=== PATIENT | female | born 1945 | race Caucasian/White ===

== ENCOUNTER → 2017-08-20 | Outpatient (CLI) | payer MEDICARE, BC ==
[~2017-08-20] MED LIST: ACET500T68 PO; ARAVA20 MG PO; BACL10TA PO; BUPR100T6 PO; CA C1TAB53 PO; CEVI30CA PO; CEVI30CA5 PO; CHOL1CRY3 MC; CYCL1DRO EACHEYE; DILT120C93 PO; ESTR0.3T PO; FOLI0.4T2 PO; HYDR1TAB12 PO; HYDR200T PO; MULT1CAP15 PO; NIAC50TA3 PO; PARO10TA57 PO; PSYL0.5215 PO; RITU10VI IV; TIZA4CAP3 PO
--- NOTE | 2017-08-20 15:14 | PCVCIMAG ---
EXAM: AORTOILIAC DUPLEX INDICATION: Peripheral arterial disease. Nonhealing ulcer. FINDINGS: AORTA: Suprarenal aorta measures maximum diameter of 2.4 cm. There is not a fusiform infrarenal aortic aneurysm. The infrarenal aorta measures maximum diameter of 1.6 cm. No aortic stenosis. RIGHT COMMON ILIAC ARTERY: Maximum diameter is 0.7 cm. No significant stenosis. RIGHT EXTERNAL ILIAC ARTERY: No significant stenosis. LEFT COMMON ILIAC ARTERY: Maximum diameter is 0.9 cm. Complete occlusion. LEFT EXTERNAL ILIAC ARTERY: No significant stenosis. IMPRESSION: Complete occlusion left common iliac artery. No right iliac stenosis seen. No abdominal aortic aneurysm. LOC:[id number]
--- NOTE | 2017-08-20 15:16 | PCVCIMAG ---
EXAM: BILATERAL LOWER EXTREMITY ARTERIAL DUPLEX INDICATION: Peripheral Arterial Disease. Leg pain. FINDINGS: Right Leg: Satisfactory arterial waveforms throughout the common/profunda/superficial femoral, popliteal, anterior tibial, peroneal, and posterior tibial arteries. No flow limiting stenosis seen. Left Leg: Severely blunted arterial waveforms throughout the common femoral and profunda femoral arteries and the superficial femoral artery and popliteal arteries without additional focal stenoses. The anterior tibial, peroneal, posterior tibial arteries are patent. IMPRESSION: No flow limiting stenosis in the right lower extremity. No flow limiting stenosis in the left lower extremity. Note is made of severely blunted arterial waveforms throughout the left lower extremity consistent with the left common iliac artery occlusion seen on aortoiliac duplex today. LOC:[id number]
== END | disposition home or self-care (01) ==
LOC: PCVCIMAG 14:02
PROVIDERS: ATTEND Nuclear Medicine Nuclear Cardiology
DX: I73.9 Peripheral vascular disease, unspecified (principal); I74.5 Embolism and thrombosis of iliac artery; L97.909 Non-pressure chronic ulcer of unspecified part of unspecified lower leg with unspecified severity
CPT/HCPCS: 93925; 93978

== ENCOUNTER → 2017-08-22 | Outpatient (CLI) | payer MEDICARE, BC ==
[~2017-08-22] MED LIST changes: +ASPIRIN 325 MG TABLET ONE; +CLOPIDOGREL BISULFATE 75 MG TABLET ONE; +DIAZEPAM 10 MG TABLET. ONE; +HEPARIN SODIUM 5,000 UNIT/ML VIAL for PCVC. ONE; +IODIXANOL 270 MG/ML 100 ML VIAL. ONE; +IV NORMAL SALINE 500ML BAG 500 ML ONE; +LIDOCAINE 1% Multi-Dose 20 ML VIAL. ONE; +LIDOCAINE 1%/EPI 1:100,000 20 ML VIAL. ONE; +MIDAZOLAM HCL/PF 2 MG/2 ML VIAL. ONE; +fentaNYL PF VIAL 100 MCG/2 ML VIAL ONE; +hydrALAZINE 20 MG/ML VIAL. ONE
--- NOTE | 2017-08-22 15:57 | PCVCINTER ---
EXAM: 1. AORTOGRAM AND BILATERAL LOWER EXTREMITY RUNOFF ANGIOGRAM 2. BILATERAL RENAL ANGIOGRAPHY 3. LEFT COMMON ILIAC ARTERY STENT PLACEMENT. INDICATION: Peripheral arterial disease. Left leg claudication. Hypertension. Renal atherosclerosis. PROCEDURE: Procedure and risks of angiography intervention is appropriate including limb loss stroke and were discussed with the patient's family and consent obtained. The patient's right groin was prepped abnormal sterile fashion. IV conscious sedation was used to procedure with appropriate monitoring from 11:30 AM through 1:30 PM. Ultrasound was used to interrogate the right groin and showed the right common femoral artery to be patent. A permanent spot film was obtained. Under ultrasound guidance access into the right common femoral artery was obtained and a 5 Turkmen sheath was placed. Through this a 5 Turkmen flush catheter was placed into the abdominal aorta at the level of the renal arteries and AP aortogram was performed. Catheter was positioned at the aortic bifurcation and both oblique views of the pelvis were obtained. Catheter was positioned into the right external iliac artery and right leg runoff angiography was performed. Catheter was exchanged for a visceral catheter was placed into the right renal arteries and right renal angiograms obtained. Catheter was placed into the the left renal arteries and left renal angiograms were obtained. Catheter was advanced to the level of the left external iliac artery and left leg runoff angiography was obtained. Patient was given 4000units of heparin. A 6 Turkmen crossover sheath was placed via the right groin to the level of the left common iliac artery. Stent placement across the areas of high-grade stenosis in the left common iliac artery was carried out with a 12 x 80 Smart control stent with subsequent dilatation to 8.0 mm. Next the left groin was prepped and draped in normal sterile fashion. Access into the left common femoral artery was obtained and a 7 Turkmen sheath was placed. A wire was noted that across the newly placed left common iliac artery stent. Stent placement across the areas of high-grade stenosis in the left upper left common iliac artery was carried out with a 8 x 39 Palmaz Sara stent with subsequent dilatation to 9.0 mm. Follow-up angiogram was performed. Catheters and wires removed. Sheaths were removed and hemostasis obtained using the FISH device. No immediate complications. FINDINGS: Aortogram: There is one right and one left renal artery. Mild calcific plaque infrarenal abdominal aorta without significant stenosis. Pelvis: The right common and external iliac arteries show good patency. The right internal iliac artery is patent. The right common femoral and profunda femoral artery are patent. 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 The left external iliac artery is patent as is the internal iliac artery. The left common femoral and profunda femoral artery are patent. Right renal artery: Ectasia of the mid and distal main renal artery but no evidence of flow-limiting stenosis. Left renal artery: Mild ectasia mid and distal main renal artery without significant stenosis. Right leg: Superficial femoral artery and popliteal arteries show good patency. The anterior tibial and peroneal arteries show good patency. The left posterior tibial artery is absent. Left leg: The superficial femoral artery and popliteal artery show good patency. The anterior tibial, peroneal, posterior tibial arteries all show good patency. The dorsalis pedis shows diffuse high-grade stenosis. Left common iliac artery: Following procedure as above vessel shows good patency. IMPRESSION: Chronic occlusion left common iliac artery was successfully recanalized with good patency restored. impression follow up LOC:[place] [id number]
== END | disposition home or self-care (01) ==
LOC: PCVCINTER 09:35
PROVIDERS: ATTEND Nuclear Medicine Nuclear Cardiology
DX: I70.212 Atherosclerosis of native arteries of extremities with intermittent claudication, left leg (principal); I10 Essential (primary) hypertension; I70.1 Atherosclerosis of renal artery
CPT/HCPCS: 36252; 37221; 75716; 76937; 99152; 99153; C1725; C1751; C1769; C1876; C1887; C1894; J0360; J0690; J1644; J2250; J3010; J3490; J7040; Q9966

== ENCOUNTER 2017-10-16 16:26 | Inpatient (IN) | payer MEDICARE ==
[~2017-10-16] VITALS: Ht 165.1 cm; Wt 44.0 kg
[~2017-10-16 16:26] MED LIST changes: -ASPIRIN 325 MG TABLET ONE; -CLOPIDOGREL BISULFATE 75 MG TABLET ONE; -DIAZEPAM 10 MG TABLET. ONE; -HEPARIN SODIUM 5,000 UNIT/ML VIAL for PCVC. ONE; -IODIXANOL 270 MG/ML 100 ML VIAL. ONE; -IV NORMAL SALINE 500ML BAG 500 ML ONE; -LIDOCAINE 1% Multi-Dose 20 ML VIAL. ONE; -LIDOCAINE 1%/EPI 1:100,000 20 ML VIAL. ONE; -MIDAZOLAM HCL/PF 2 MG/2 ML VIAL. ONE; -fentaNYL PF VIAL 100 MCG/2 ML VIAL ONE; -hydrALAZINE 20 MG/ML VIAL. ONE
[2017-10-16 19:45] VITALS: BP 136/73
[2017-10-16] MEDS ORDERED: CLOP75TA (19:58)
[2017-10-16] MEDS ORDERED: METO-239 (19:58)
[2017-10-16] MEDS ORDERED: HYDR-2819 (19:58)
[2017-10-16] MEDS ORDERED: SPIR1TAB3 (19:58)
[2017-10-16] MEDS ORDERED: GABA100C6 (19:58)
[2017-10-16] MEDS ORDERED: FURO20TA3 PO (19:58)
[2017-10-16] MEDS ORDERED: BUPR100T8 (19:58)
[2017-10-16] MEDS ORDERED: PARO40TA3 (19:58)
[2017-10-16] MEDS ORDERED: DILTIAZEM (19:58)
[2017-10-16] MEDS ORDERED: LEFL20TA (19:58)
[2017-10-16] MEDS ORDERED: ONDA8TAB14 (19:58)
[2017-10-16] MEDS ORDERED: IV NORMAL SALINE 1000ML BAG 1,000 ML IV SCH (20:36)
[2017-10-16] MEDS ORDERED: PROCHLORPERAZINE 10 MG/2 ML VIAL. IV PRN (20:45)
[2017-10-16] MEDS ORDERED: CA C1TAB53 PO ×2 (20:45)
[2017-10-16] MEDS ORDERED: CALCIUM CARBONATE 500 MG TAB.CHEW PO PRN (20:45)
[2017-10-16] MEDS ORDERED: CHOL500016 PO (20:45)
[2017-10-16] MEDS ORDERED: FOLI1TAB16 PO (20:45)
[2017-10-16] MEDS ORDERED: CYCL1DRO EACHEYE (20:45)
[2017-10-16] MEDS ORDERED: HYDR200T5 PO (20:45)
[2017-10-16] MEDS ORDERED: HYDR25TA PO (20:52)
[2017-10-16] MEDS ORDERED: MULT-223 PO (20:52)
[2017-10-16] MEDS ORDERED: TIZA2CAP PO (20:52)
[2017-10-16] MEDS ORDERED: TIZA4CAP PO (20:52)
[2017-10-16] MEDS ORDERED: LATA2.5D3 OP (20:52)
[2017-10-16] MEDS ORDERED: METO25TA2 PO (20:52)
[2017-10-16] MEDS ORDERED: PSYL575P4 PO (20:52)
[2017-10-16] MEDS ORDERED: SPIR25TA3 PO (20:52)
[2017-10-16] MEDS ORDERED: TRAM50TA PO (20:54)
[2017-10-16] MEDS ORDERED: TRIA15OI TP (20:54)
[2017-10-16] MEDS ORDERED: ONDANSETRON ODT 4 MG TAB.RAPDIS. PO PRN (21:30)
[2017-10-16] MEDS ORDERED: hydrOXYzine 10 MG TABLET PO PRN (21:30)
[2017-10-16] MEDS ORDERED: traMADol 50 MG TABLET PO PRN (21:30)
[2017-10-16] MEDS: GABAPENTIN 100 MG CAPSULE. PO SCH (21:58)
[2017-10-16] MEDS: ACETAMINOPHEN 500 MG TABLET PO SCH (21:58)
[2017-10-16] MEDS: FOLIC ACID 1 MG TABLET. PO SCH (21:58)
[2017-10-16] MEDS: LATANOPROST 0.005% OPHTH SOLUTION 2.5ML BOTTLE. OU SCH (22:03)
[2017-10-16 22:28] LABS: BILIRUBIN,URINE NEGATIVE (NEG); GLUCOSE,URINE NEGATIVE (NEG); NITRITE,URINE NEGATIVE (NEG); PH,URINE 5.5; PROTEIN,URINE NEGATIVE (NEG-TRACE); UROBILINOGEN,URINE 0.2 mg/dL (0.2 mg/dL)
--- NOTE | 2017-10-16 22:33 | HP ---
ADMIT DATE: 10/16/2017 CHIEF COMPLAINT: Weakness. HISTORY OF PRESENT ILLNESS: The patient is a 71-year-old woman with past medical history of rheumatoid arthritis, CLL, hypertension, who presented to the Emergency Room at [facility] with generalized weakness and fatigue. She actually had been seen at the same Emergency Room about 2 weeks prior for same symptoms, had been found with multiple abnormalities including anemia, dehydration, hypokalemia, but at that time had refused admission. She presented today for essentially severe weakness, even being unable to get up from a chair and take care of herself in any other way. She does live alone. She denies any fevers, chills, any cough, chest pain, abdominal pain, nausea, vomiting or diarrhea. She does occasionally get nausea, does have Zofran at home for this. Her appetite has been nil for essentially 3 years. On further prompting, she is somewhat vague, but thinks it may be worse after eating, but just does not have any appetite. In the Emergency Room, she was found with an anemia with a hemoglobin of 7.1. Her creatinine was 1.4 with a BUN of 44, multiple electrolyte abnormalities and she was transferred to [facility] for better access to a specialist for consulting. PAST MEDICAL HISTORY: CLL, currently not on treatment; rheumatoid arthritis, on multiple meds; and hypertension. PAST SURGICAL HISTORY: No history of surgeries. FAMILY HISTORY: Positive for heart disease in father. She has cousins with rheumatoid arthritis. SOCIAL HISTORY: Lives by herself, never smoked. No toxic habits. ALLERGIES: SULFA AND METHOTREXATE. MEDICATIONS: MAR reconciled with home medications. REVIEW OF SYSTEMS: Positive as per HPI. Occasional nausea, severe anorexia. No abdominal pain. Rest of organ system review is essentially negative, say for chronic arthritis. PHYSICAL EXAMINATION: VITAL SIGNS: From today show a blood pressure of 136/73, heart rate at 111, respiratory rate at 16. She is afebrile. GENERAL: This is a severely cachectic 71-year-old woman, awake, alert, in no acute distress. LUNGS: Clear. HEART: Has regular rate and rhythm. ABDOMEN: Cachectic, positive bowel sounds, some tenderness to palpation in the epigastric area. EXTREMITIES: Show no edema. SKIN: Warm, soft and dry. Multiple superficial bruises noted. Significant arthritic changes in her wrist and fingers, especially. LABORATORY DATA: CBC with a WBC of 15.4, hemoglobin 7.1, MCV of 93, platelets at 689. BUN and creatinine at 44 and 1.4, sodium 129, potassium 4.5, chloride at 95, CO2 at 17. LFTs essentially within normal limits. Albumin at 2.9. UA without any signs of infection. IMAGING: Chest x-ray: Possible right lung nodule, no acute changes. ASSESSMENT AND PLAN: The patient is a 71-year-old woman with chronic failure to thrive, now to a point of weakness where she is unable to motor under her own strength. Her BMI currently is under 15. She states she has no nausea; however, severe anorexia with occasional nausea episodes for which she has ondansetron. We will have to evaluate if this is secondary to medications, including some of her rheumatoid arthritis medications versus potential mesenteric plaquing. She had a recent arteriogram of her lower extremities showing occlusion. Cannot rule out that similar pathology is at work in her abdominal arteries. We will also obtain a GI consult for further input regarding other potential etiologies. The patient currently is significantly azotemic and has elevated creatinine. We will administer IV fluids and hope that this is related to dehydration due to poor p.o. intake. We will monitor all her labs including her electrolytes. Renal consult will be obtained. Bit concerned that her CO2 was actually fairly low. Consider switching to bicarbonate if this does not improve with next plan. The patient also is significantly anemic. I am not sure if this is related to her previous treatments with CLL or recurrent disease, although her white count actually is normal with normal lymphocyte count. Suspect she may be reaching transfusion levels with IV rehydration in the morning. For prophylaxis, she will be started on a PPI as well as on heparin subQ. TOMASZ DAVIS MD DR: MEDHAT/luma JOB#: [id number] / [id number] DENNIS
[2017-10-16 22:38] LABS: BACTERIA,URINE MOD /HPF (0-FEW); RBC,URINE 0 /HPF (0-2); SQUAMOUS EPITHELIAL CELL,UR MOD /LPF
[2017-10-16 23:16] VITALS: BP 135/75
[2017-10-17] VITALS (11 sets, daily range): BP systolic 139–168; BP diastolic 61–91
[2017-10-17] MEDS: HYDROcodone/APAP 5/325MG 1 TAB TABLET PO PRN ×2 (00:05→21:31)
[2017-10-17 04:33] LABS: BASO # 0.1 x10^3/uL (0.0-0.2); BASO % 1 % (0-3); EOS % 1 % (0-3); LYMPH # 1.3 x10^3/uL (1.0-4.8); LYMPH % 12 % (24-48); MEAN CORPUSCULAR HEMOGLOBIN 30 pg (25-35); MEAN CORPUSCULAR HGB CONC 32 g/dL (31-37); MEAN CORPUSCULAR VOLUME 94 fL (79-100); MONO % 10 % (0-9); NEUT % 77 % (31-73); PLATELET COUNT 593 x10^3/uL (140-400); RED BLOOD COUNT 2.05 x10^6/uL (3.50-5.40); RED CELL DISTRIBUTION WIDTH 14.3 % (11.5-14.5); WHITE BLOOD COUNT 10.8 x10^3/uL (4.0-11.0)
[2017-10-17 04:44] LABS: CALCIUM 8.2 mg/dL (8.5-10.1); CREATININE 1.1 mg/dL (0.6-1.0); GFR 48.7; MAGNESIUM 1.7 mg/dL (1.8-2.4); PHOSPHORUS 3.6 mg/dL (2.6-4.7); POTASSIUM 4.2 mmol/L (3.5-5.1)
[2017-10-17 04:46] LABS: HEMATOCRIT 19.2 % (36.0-47.0); HEMOGLOBIN 6.2 g/dL (12.0-15.5)
[2017-10-17] MEDS: PSYLLIUM HUSK (SUGAR FREE) 1 PKT PACKET PO SCH (08:06)
[2017-10-17] MEDS: buPROPion SR 100 MG TABLET.SA. PO SCH (08:06)
[2017-10-17] MEDS: CLOPIDOGREL BISULFATE 75 MG TABLET PO SCH (08:06)
[2017-10-17] MEDS: cycloSPORINE 0.05% OPTH 1 DROP DROPERETTE OU SCH ×2 (08:06→20:23)
[2017-10-17] MEDS: FOLIC ACID 1 MG TABLET. PO SCH ×3 (08:08→20:22)
[2017-10-17] MEDS: CALCIUM CARB/VIT D3 500/200 TABLET. PO SCH ×2 (08:08→16:06)
[2017-10-17] MEDS: ACETAMINOPHEN 500 MG TABLET PO SCH ×2 (08:08→20:23)
[2017-10-17] MEDS: MULTIVITAMIN with MINERAL TABLET. PO SCH (08:08)
[2017-10-17] MEDS: METOPROLOL SUCC 24HR ER 25 MG TAB.ER.24H. PO SCH (08:09)
[2017-10-17] MEDS: PARoxetine 20 MG TABLET PO SCH (08:09)
[2017-10-17] MEDS: HEPARIN PF for SUB-Q USE 5,000 UNIT/0.5 ML VIAL. SQ SCH ×2 (08:15→20:27)
[2017-10-17] MEDS ORDERED: METOPROLOL SUCC 24HR ER 25 MG TAB.ER.24H. PO SCH (09:00)
--- NOTE | 2017-10-17 11:34 | PDOC2 ---
CONSULT Date of Consult Date of Consult DATE: 10/17/17 TIME: 11:27 Reason for Consult Reason for Consult: CHEIKH Referring Physician Referring Physician: SUSAN Identification/Chief Complaint Chief Complaint WEAKNESS Problems: Source Source: Chart review, Patient History of Present Illness Reason for Visit: THIS IS A 71 YR OLD WITH SEVERAL WEEK HX OF WEAKNESS AND ANOREXIA. NOT EATING MUCH. NO APPETITE. MULTIPLE MED PROBLEMS INCLUDING CLL AND RA. LABS IN [place] SHOWED SEVERE ANEMIA AND MILD CHEIKH. NO CKD HX. PER PT AND DAUGHTER SHE HAS HAD MILD KIDNEY PROBLEMS IN THE PAST WHEN SHE BECAME DEHYDRATED. HOME MEDS INCLUDED LASIX AND SHE HAS BEEN COMPLIANT WITH THIS. NO NEPHROTOXINS. NO HX Past Medical History Cardiovascular: HTN GI: Constipation Heme/Onc: Anemia NOS, Cancer, Other (CLL) Musculoskeletal: Other (RA) Social History No ALCOHOL: none Lives: with Family Current Medications Current Medications Current Medications Sodium Chloride 1,000 ml @ 100 mls/hr Q10H IV Last administered on 10/16/17 22:03; Start 10/16/17 at 20:36; Stop 10/17/17 at 06:35; Status DC Prochlorperazine Edisylate (Compazine) 10 mg PRN Q6HRS PRN IV NAUSEA/VOMITING; Start 10/16/17 at 20:45 Calcium Carbonate/ Glycine (Tums) 500 mg PRN Q3HRS PRN PO UPSET STOMACH; Start 10/16/17 at 20:45 Heparin Sodium (Porcine) (Heparin Sq) 5,000 unit Q12HR SQ Last administered on 10/17/17 08:15; Start 10/17/17 at 09:00 Acetaminophen (Tylenol) 500 mg BID PO Last administered on 10/17/17 08:08; Start 10/16/17 at 22:00 Bupropion HCl (Wellbutrin Sr) 100 mg DAILY PO Last administered on 10/17/17 08:06; Start 10/17/17 at 09:00 Clopidogrel Bisulfate (Plavix) 75 mg DAILY PO Last administered on 10/17/17 08:06; Start 10/17/17 at 09:00 Cyclosporine (Restasis) 1 drop BID OU Last administered on 10/17/17 08:06; Start 10/17/17 at 09:00 Folic Acid (Folic Acid) 1 mg TID PO Last administered on 10/17/17 08:08; Start 10/16/17 at 22:00 Gabapentin (Neurontin) 200 mg QHS PO Last administered on 10/16/17 21:58; Start 10/16/17 at 22:00 Acetaminophen/ Hydrocodone Bitart (Lortab 5/325) 1 tab Q6HRS PRN PO pain Last administered on 10/17/17 00:05; Start 10/16/17 at 21:30 Latanoprost (Xalatan) 1 drop HS OU ; Start 10/16/17 at 22:00 Metoprolol Succinate (Toprol Xl) 25 mg DAILY PO Last administered on 08:09; Start 10/17/17 at 09:00 Metoprolol Succinate (Toprol Xl) 25 mg DAILY PO ; Start 10/17/17 at 09:00; Status UNV Tramadol HCl (Ultram) 50 mg Q4H PRN PO MILD PAIN; Start 10/16/17 at 21:30 Calcium/Vitamin D (Oscal D 500mg/ 200uts) 1 tab BIDWMEALS PO Last administered on 10/17/17 08:08; Start 10/17/17 at 08:00 Multivitamins (Thera M Plus) 1 tab DAILY PO Last administered on 10/17/17 08: 08; Start 10/17/17 at 09:00 Hydroxyzine HCl (Atarax) 10 mg PRN Q6HRS PRN PO ITCHING; Start 10/16/17 at 21: 30 Ondansetron HCl (Zofran Odt) 4 mg PRN Q6HRS PRN PO NAUSEA/VOMITING; Start at 21:30 Paroxetine HCl (Paxil) 20 mg DAILY PO Last administered on 10/17/17 08:09; Start 10/17/17 at 09:00 Psyllium Hydrophilic Mucilloid (Metamucil Fiber Packet) 1 pkt DAILY PO Last administered on 10/17/17 08:06; Start 10/17/17 at 09:00 Diltiazem HCl (Cardizem 24hr Cd) 240 mg DAILY PO Last administered on 08:08; Start 10/17/17 at 09:00 Active Scripts Active Reported Triamcinolone Acetonide 0.1% Oint (Triamcinolone Acetonide) 15 Gm Oint...g. 1 Tali TP BID MIX WITH EUCERIN DIRECTED BY PHYSICIAN Tramadol Hcl 50 Mg Tablet 50 Mg PO Q4H PRN Tizanidine Hcl 4 Mg Capsule 8 Mg PO HS Tizanidine Hcl 2 Mg Capsule 2 Mg PO BID Spironolactone 25 Mg Tablet 25 Mg PO DAILY Metamucil Powder (Psyllium Seed (with Sugar)) 575 Gm Powder 575 Gm PO One Daily (Multivitamin) 1 Each Tablet 1 Each PO DAILY Toprol Xl (Metoprolol Succinate) 25 Mg Tab.er.24h 25 Mg PO DAILY Latanoprost 2.5 Ml Drops 1 Drop OP HS Hydroxyzine Hcl 25 Mg Tablet 25 Mg PO Hydroxychloroquine Sulfate 200 Mg Tablet 200 Mg PO BID Folic Acid 1 Mg Tablet 1 Mg PO TID Restasis (Cyclosporine) 1 Each Droperette 1 Drop EACHEYE BID Vitamin D3 (Cholecalciferol (Vitamin D3)) 5,000 Unit Tablet 5,000 Unit PO DAILY Cvs Calcium Citrate + D Tab (Ca Citrate/Mgox/Vit D3/B6/Min) 1 Each Tablet 1 Each PO BID Cvs Calcium Citrate + D Tab (Ca Citrate/Mgox/Vit D3/B6/Min) 1 Each Tablet 1 Each PO Lorcet 5-325 mg Tablet (Hydrocodone/Acetaminophen) 1 Each Tablet Leflunomide 20 Mg Tablet Metoprolol Succinate ( Xl ) (Metoprolol Succinate) 25 Mg Tab.er.24h Paroxetine Hcl 40 Mg Tablet Ondansetron Hcl 8 Mg Tablet Gabapentin 100 Mg Capsule Bupropion Hcl Sr (Bupropion Hcl) 100 Mg Tablet.er Clopidogrel (Clopidogrel Bisulfate) 75 Mg Tablet Furosemide 20 Mg Tablet 10 Mg PO DAILY Tiazac (Diltiazem Hcl) 120 Mg Capsule.er 240 Mg PO Evoxac (Cevimeline Hcl) 30 Mg Capsule 30 Mg PO Acetaminophen 500 Mg Tablet 1 Tab PO BID Allergies Allergies: Coded Allergies: Sulfa (Sulfonamide Antibiotics) (Verified Allergy, Intermediate, 08/29/14) methotrexate (Verified Allergy, Intermediate, 10/16/17) ROS General: YES: Fatigue, Malaise, Appetite PSYCHOLOGICAL ROS: YES: Anxiety, Depression Eyes: Yes Decreased vision HEENT: YES: Heacaches Respiratory: YES: Cough Gastrointestinal: Yes Nausea, Yes Constipation, Yes Other (NO APPETITE) Genitourinary: YES Other (NOCTURIA) Musculoskeletal: Yes Muscular Weakness Neurological: Yes Weakness Skin: Yes Dry Skin Physical Exam General: Alert, Oriented X3, Cooperative, No acute distress HEENT: Atraumatic, PERRLA, EOMI, Other (DRY MUCOSA) Heart: Regular rate Abdomen: Normal bowel sounds, Soft, No tenderness Extremities: No clubbing, Other (ATROPHY) Skin: No rashes Neuro: Normal speech, Cranial nerves 3-12 NL Psych/Mental Status: Other (FLAT AFFECT) MUSCULOSKELETAL: Other (DIFFUSE MUSCULAR ATROPHY) Vitals VITALS Vital Signs Date Time Temp Pulse Resp B/P (MAP) Pulse Ox O2 Delivery O2 Flow Rate FiO2 10/17/17 10:47 98.2 102 17 157/91 (113) 96 Room Air 98.2 Labs Labs Laboratory Tests Test 10/16/17 21:45 10/17/17 03:30 Urine Collection Type Unknown Urine Color Yellow Urine Clarity Clear Urine pH 5.5 Urine Specific [place] 1.010 Urine Protein Negative mg/dL (NEG-TRACE) Urine Glucose (UA) Negative mg/dL (NEG) Urine Ketones (Stick) Trace mg/dL (NEG) Urine Blood Negative (NEG) Urine Nitrite Negative (NEG) Urine Bilirubin Negative (NEG) Urine Urobilinogen Dipstick 0.2 mg/dL (0.2 mg/dL) Urine Leukocyte Esterase Negative (NEG) Urine RBC 0 /HPF (0-2) Urine WBC 1-4 /HPF (0-4) Urine Squamous Epithelial Cells Mod /LPF Urine Bacteria Mod /HPF (0-FEW) Urine Mucus Mod /LPF White Blood Count 10.8 x10^3/uL (4.0-11.0) Red Blood Count 2.05 x10^6/uL (3.50-5.40) Hemoglobin 6.2 g/dL (12.0-15.5) Hematocrit 19.2 % (36.0-47.0) Mean Corpuscular Volume 94 fL (79-100) Mean Corpuscular Hemoglobin 30 pg (25-35) Mean Corpuscular Hemoglobin Concent 32 g/dL (31-37) Red Cell Distribution Width 14.3 % (11.5-14.5) Platelet Count 593 x10^3/uL (140-400) Neutrophils (%) (Auto) 77 % (31-73) Lymphocytes (%) (Auto) 12 % (24-48) Monocytes (%) (Auto) 10 % (0-9) Eosinophils (%) (Auto) 1 % (0-3) Basophils (%) (Auto) 1 % (0-3) Neutrophils # (Auto) 8.3 x10^3uL (1.8-7.7) Lymphocytes # (Auto) 1.3 x10^3/uL (1.0-4.8) Monocytes # (Auto) 1.0 x10^3/uL (0.0-1.1) Eosinophils # (Auto) 0.1 x10^3/uL (0.0-0.7) Basophils # (Auto) 0.1 x10^3/uL (0.0-0.2) Sodium Level 133 mmol/L (136-145) Potassium Level 4.2 mmol/L (3.5-5.1) Chloride Level 100 mmol/L (98-107) Carbon Dioxide Level 17 mmol/L (21-32) Anion Gap 16 (6-14) Blood Urea Nitrogen 34 mg/dL (7-20) Creatinine 1.1 mg/dL (0.6-1.0) Estimated GFR (Cockcroft-Gault) 48.7 Glucose Level 60 mg/dL (70-99) Calcium Level 8.2 mg/dL (8.5-10.1) Phosphorus Level 3.6 mg/dL (2.6-4.7) Magnesium Level 1.7 mg/dL (1.8-2.4) Thyroid Stimulating Hormone (TSH) 3.776 uIU/mL (0.358-3.74) Laboratory Tests Test 10/16/17 21:45 10/17/17 03:30 Urine Collection Type Unknown Urine Color Yellow Urine Clarity Clear Urine pH 5.5 Urine Specific [place] 1.010 Urine Protein Negative mg/dL (NEG-TRACE) Urine Glucose (UA) Negative mg/dL (NEG) Urine Ketones (Stick) Trace mg/dL (NEG) Urine Blood Negative (NEG) Urine Nitrite Negative (NEG) Urine Bilirubin Negative (NEG) Urine Urobilinogen Dipstick 0.2 mg/dL (0.2 mg/dL) Urine Leukocyte Esterase Negative (NEG) Urine RBC 0 /HPF (0-2) Urine WBC 1-4 /HPF (0-4) Urine Squamous Epithelial Cells Mod /LPF Urine Bacteria Mod /HPF (0-FEW) Urine Mucus Mod /LPF White Blood Count 10.8 x10^3/uL (4.0-11.0) Red Blood Count 2.05 x10^6/uL (3.50-5.40) Hemoglobin 6.2 g/dL (12.0-15.5) Hematocrit 19.2 % (36.0-47.0) Mean Corpuscular Volume 94 fL (79-100) Mean Corpuscular Hemoglobin 30 pg (25-35) Mean Corpuscular Hemoglobin Concent 32 g/dL (31-37) Red Cell Distribution Width 14.3 % (11.5-14.5) Platelet Count 593 x10^3/uL (140-400) Neutrophils (%) (Auto) 77 % (31-73) Lymphocytes (%) (Auto) 12 % (24-48) Monocytes (%) (Auto) 10 % (0-9) Eosinophils (%) (Auto) 1 % (0-3) Basophils (%) (Auto) 1 % (0-3) Neutrophils # (Auto) 8.3 x10^3uL (1.8-7.7) Lymphocytes # (Auto) 1.3 x10^3/uL (1.0-4.8) Monocytes # (Auto) 1.0 x10^3/uL (0.0-1.1) Eosinophils # (Auto) 0.1 x10^3/uL (0.0-0.7) Basophils # (Auto) 0.1 x10^3/uL (0.0-0.2) Sodium Level 133 mmol/L (136-145) Potassium Level 4.2 mmol/L (3.5-5.1) Chloride Level 100 mmol/L (98-107) Carbon Dioxide Level 17 mmol/L (21-32) Anion Gap 16 (6-14) Blood Urea Nitrogen 34 mg/dL (7-20) Creatinine 1.1 mg/dL (0.6-1.0) Estimated GFR (Cockcroft-Gault) 48.7 Glucose Level 60 mg/dL (70-99) Calcium Level 8.2 mg/dL (8.5-10.1) Phosphorus Level 3.6 mg/dL (2.6-4.7) Magnesium Level 1.7 mg/dL (1.8-2.4) Thyroid Stimulating Hormone (TSH) 3.776 uIU/mL (0.358-3.74) Assessment/Plan Assessment/Plan IMP MILD CHEIKH-NO CKD ANEMIA DEHYDRATION CACHEXIA MALNUTRITION CLL RA LOW MAG PLAN REPLACE MAG PPN PRBC WILL FOLLOW UPDATED DAUGHTER CONSIDER GI AND ONC FRANCHESCA CORDOVA MD Oct 17, 2017 11:34
[2017-10-17] MEDS ORDERED: MAGNESIUM SULFATE 2GM 50 ML IV ONE (11:45)
[2017-10-17] MEDS: AMINO AC 3%/ELECTROLYTE/GLYCER 1,000 ML IV SCH (12:05)
--- NOTE | 2017-10-17 13:04 | PDOC ---
PROGRESS NOTES Chief Complaint Chief Complaint Weakness, FTT ASSESSMENT AND PLAN: 1. FTT: eating a little more here. no vomiting. 2. Anorexia: unclear etiology. ?med related vs mesenteric ischemia vs GI malignancy (unlikely given time course). GI consult pending. trial of marinol 3. CHEIKH: improving with IVF 4. Hyponatremia: improving 5. Hypomagnesemia: replete IV 6. Anemia: anemia labs pending. transfuse PRBC x1 today 7. Prophylaxis: PPI, lovenox History of Present Illness History of Present Illness feels a little better. no focal c/o Vitals Vitals Vital Signs Date Time Temp Pulse Resp B/P (MAP) Pulse Ox O2 Delivery O2 Flow Rate FiO2 10/17/17 12:16 98.6 94 16 155/77 (103) 98.6 10/17/17 10:47 96 Room Air Physical Exam Physical Exam cachectic General: Alert, Oriented X3, Cooperative, No acute distress Heart: Regular rate Lungs: Clear Abdomen: Normal bowel sounds, Soft, No tenderness Extremities: No clubbing, Other (mucle wasting) Skin: No rashes Labs LABS Laboratory Tests Test 10/16/17 21:45 10/17/17 03:30 Urine Collection Type Unknown Urine Color Yellow Urine Clarity Clear Urine pH 5.5 Urine Specific [place] 1.010 Urine Protein Negative mg/dL (NEG-TRACE) Urine Glucose (UA) Negative mg/dL (NEG) Urine Ketones (Stick) Trace mg/dL (NEG) Urine Blood Negative (NEG) Urine Nitrite Negative (NEG) Urine Bilirubin Negative (NEG) Urine Urobilinogen Dipstick 0.2 mg/dL (0.2 mg/dL) Urine Leukocyte Esterase Negative (NEG) Urine RBC 0 /HPF (0-2) Urine WBC 1-4 /HPF (0-4) Urine Squamous Epithelial Cells Mod /LPF Urine Bacteria Mod /HPF (0-FEW) Urine Mucus Mod /LPF White Blood Count 10.8 x10^3/uL (4.0-11.0) Red Blood Count 2.05 x10^6/uL (3.50-5.40) Hemoglobin 6.2 g/dL (12.0-15.5) Hematocrit 19.2 % (36.0-47.0) Mean Corpuscular Volume 94 fL (79-100) Mean Corpuscular Hemoglobin 30 pg (25-35) Mean Corpuscular Hemoglobin Concent 32 g/dL (31-37) Red Cell Distribution Width 14.3 % (11.5-14.5) Platelet Count 593 x10^3/uL (140-400) Neutrophils (%) (Auto) 77 % (31-73) Lymphocytes (%) (Auto) 12 % (24-48) Monocytes (%) (Auto) 10 % (0-9) Eosinophils (%) (Auto) 1 % (0-3) Basophils (%) (Auto) 1 % (0-3) Neutrophils # (Auto) 8.3 x10^3uL (1.8-7.7) Lymphocytes # (Auto) 1.3 x10^3/uL (1.0-4.8) Monocytes # (Auto) 1.0 x10^3/uL (0.0-1.1) Eosinophils # (Auto) 0.1 x10^3/uL (0.0-0.7) Basophils # (Auto) 0.1 x10^3/uL (0.0-0.2) Sodium Level 133 mmol/L (136-145) Potassium Level 4.2 mmol/L (3.5-5.1) Chloride Level 100 mmol/L (98-107) Carbon Dioxide Level 17 mmol/L (21-32) Anion Gap 16 (6-14) Blood Urea Nitrogen 34 mg/dL (7-20) Creatinine 1.1 mg/dL (0.6-1.0) Estimated GFR (Cockcroft-Gault) 48.7 Glucose Level 60 mg/dL (70-99) Calcium Level 8.2 mg/dL (8.5-10.1) Phosphorus Level 3.6 mg/dL (2.6-4.7) Magnesium Level 1.7 mg/dL (1.8-2.4) Thyroid Stimulating Hormone (TSH) 3.776 uIU/mL (0.358-3.74) Nutrition Consultation Dietary Evaluation: Recommendations by RD: Increase Calorie Intake, Protein supplementation Comments: boost plus, boost pudding, magic cup w/ meals Expected Outcomes/Goals: to meet > 75% est nutr needs Malnutrition Findings: Body Fat Depletion (Non Severe: Mod to Severe Weight Status: Underweight TOMASZ DAVIS MD Oct 17, 2017 13:03
[2017-10-17 13:27] LABS: VITAMIN-B12 1635 pg/mL (247-911)
[2017-10-17 13:58] LABS: FOLATE > 24.00 ng/ml (3.2-20.0)
--- NOTE | 2017-10-17 15:12 | PDOC2 ---
GI CONSULT Reason For Consult: Anorexia HPI: HPI: 71 y/o female we are asked to see re: anorexia. States poor appetite over past 3 years, worse past 6 months or so. Denies abdominal pain. No HB, dysphagia, PUD, GB or liver history. Had EGD at w/in past 2 years "normal". No pc bloating or early satiety. Occasional nausea/rare emesis. H/o abnormal pancreas on imaging going back some years; abnormal CT at [facility] in January this year, though radiologist comments on study (MRCP?) from 2010 showing similar findings of pancreatic ductal dilatation with perhaps cystic structure in tail. She does not recall having been told cause of this. Did have attack of pancreatitis in the remote past and at one time was heavy drinker, though dry past 14 years. For most of her life was constipated; has loosened past few years, though occasional constipation. No ongoing diarrhea or overt bleeding. Has had >one colonoscopy, the last this past May; no findings recalled. Now with normocytic anemia; from CBC's at [facility] during ER visits, seemingly arising just before January this year. B12 and folate normal here; iron studies pending. Now in general has lack of energy. Significant weight loss. Continues to smoke. Takes one ASA daily, full-strength, but no other NSAIDs. Also noted on CT in January were diverticulosis and probable liver cyst. PMH: PMH: RA, HTN, CLL(historically resolved after got Rituxan for her RA). No prior surgery. Social History: Smoke: <1 pack per day ALCOHOL: none Drugs: None ROS: GEN: Denies fevers, chills, sweats HEENT: Denies blurred vision, sore throat CV: Denies chest pain RESP: Denies shortness of air, cough GI: Per HPI : Denies hematuria, dysuria ENDO: weight loss NEURO: Denies confusion, dizziness MSK: Denies weakness, chronic arthritic complaints. SKIN: Denies jaundice, pruritus Vitals: Vitals: Vital Signs Date Time Temp Pulse Resp B/P (MAP) Pulse Ox O2 Delivery O2 Flow Rate FiO2 10/17/17 14:37 98.5 93 17 150/72 (98) 96 Room Air 98.5 Labs: Labs: Laboratory Tests Test 10/16/17 21:45 10/17/17 03:30 10/17/17 12:15 Urine Collection Type Unknown Urine Color Yellow Urine Clarity Clear Urine pH 5.5 Urine Specific [place] 1.010 Urine Protein Negative mg/dL (NEG-TRACE) Urine Glucose (UA) Negative mg/dL (NEG) Urine Ketones (Stick) Trace mg/dL (NEG) Urine Blood Negative (NEG) Urine Nitrite Negative (NEG) Urine Bilirubin Negative (NEG) Urine Urobilinogen Dipstick 0.2 mg/dL (0.2 mg/dL) Urine Leukocyte Esterase Negative (NEG) Urine RBC 0 /HPF (0-2) Urine WBC 1-4 /HPF (0-4) Urine Squamous Epithelial Cells Mod /LPF Urine Bacteria Mod /HPF (0-FEW) Urine Mucus Mod /LPF White Blood Count 10.8 x10^3/uL (4.0-11.0) Red Blood Count 2.05 x10^6/uL (3.50-5.40) Hemoglobin 6.2 g/dL (12.0-15.5) Hematocrit 19.2 % (36.0-47.0) Mean Corpuscular Volume 94 fL (79-100) Mean Corpuscular Hemoglobin 30 pg (25-35) Mean Corpuscular Hemoglobin Concent 32 g/dL (31-37) Red Cell Distribution Width 14.3 % (11.5-14.5) Platelet Count 593 x10^3/uL (140-400) Neutrophils (%) (Auto) 77 % (31-73) Lymphocytes (%) (Auto) 12 % (24-48) Monocytes (%) (Auto) 10 % (0-9) Eosinophils (%) (Auto) 1 % (0-3) Basophils (%) (Auto) 1 % (0-3) Neutrophils # (Auto) 8.3 x10^3uL (1.8-7.7) Lymphocytes # (Auto) 1.3 x10^3/uL (1.0-4.8) Monocytes # (Auto) 1.0 x10^3/uL (0.0-1.1) Eosinophils # (Auto) 0.1 x10^3/uL (0.0-0.7) Basophils # (Auto) 0.1 x10^3/uL (0.0-0.2) Sodium Level 133 mmol/L (136-145) Potassium Level 4.2 mmol/L (3.5-5.1) Chloride Level 100 mmol/L (98-107) Carbon Dioxide Level 17 mmol/L (21-32) Anion Gap 16 (6-14) Blood Urea Nitrogen 34 mg/dL (7-20) Creatinine 1.1 mg/dL (0.6-1.0) Estimated GFR (Cockcroft-Gault) 48.7 Glucose Level 60 mg/dL (70-99) Calcium Level 8.2 mg/dL (8.5-10.1) Phosphorus Level 3.6 mg/dL (2.6-4.7) Magnesium Level 1.7 mg/dL (1.8-2.4) Thyroid Stimulating Hormone (TSH) 3.776 uIU/mL (0.358-3.74) Vitamin B12 Level 1635 pg/mL (247-911) Serum Folate > 24.00 ng/ml (3.2-20.0) Allergies: Coded Allergies: Sulfa (Sulfonamide Antibiotics) (Verified Allergy, Intermediate, 08/29/14) methotrexate (Verified Allergy, Intermediate, 10/16/17) Medications: Current Medications Medications (Trade) Dose Ordered Sig/Kayla Route PRN Reason Start Time Stop Time Status Last Admin Dose Admin Sodium Chloride 1,000 ml @ 100 mls/hr Q10H IV 10/16/17 20:36 10/17/17 06:35 DC 10/16/17 22:03 Heparin Sodium (Porcine) (Heparin Sq) 5,000 unit Q12HR SQ 10/17/17 09:00 10/17/17 08:15 Acetaminophen (Tylenol) 500 mg BID PO 10/16/17 22:00 10/17/17 08:08 Bupropion HCl (Wellbutrin Sr) 100 mg DAILY PO 10/17/17 09:00 10/17/17 08:06 Clopidogrel Bisulfate (Plavix) 75 mg DAILY PO 10/17/17 09:00 10/17/17 08:06 Cyclosporine (Restasis) 1 drop BID OU 10/17/17 09:00 10/17/17 08:06 Folic Acid (Folic Acid) 1 mg TID PO 10/16/17 22:00 10/17/17 12:13 Gabapentin (Neurontin) 200 mg QHS PO 10/16/17 22:00 10/16/17 21:58 Acetaminophen/ Hydrocodone Bitart (Lortab 5/325) 1 tab Q6HRS PRN PO pain 10/16/17 21:30 10/17/17 00:05 Metoprolol Succinate (Toprol Xl) 25 mg DAILY PO 10/17/17 09:00 10/17/17 08:09 Calcium/Vitamin D (Oscal D 500mg/ 200uts) 1 tab BIDWMEALS PO 10/17/17 08:00 10/17/17 08:08 Multivitamins (Thera M Plus) 1 tab DAILY PO 10/17/17 09:00 10/17/17 08:08 Paroxetine HCl (Paxil) 20 mg DAILY PO 10/17/17 09:00 10/17/17 08:09 Psyllium Hydrophilic Mucilloid (Metamucil Fiber Packet) 1 pkt DAILY PO 10/17/17 09:00 10/17/17 08:06 Diltiazem HCl (Cardizem 24hr Cd) 240 mg DAILY PO 10/17/17 09:00 10/17/17 08:08 Magnesium Sulfate/ Dextrose 50 ml @ 25 mls/hr 1X ONCE IV 10/17/17 11:45 10/17/17 13:44 DC 10/17/17 12:05 Amino Acids/ Glycerin/ Electrolytes 1,000 ml @ 80 mls/hr [id number] IV 10/17/17 11:45 10/17/17 12:05 Imaging: Imaging: CT from [facility] also mentions common duct dilation (stable), but normal enzymes. PE: GEN: NAD, nearly cachectic HEENT: Atraumatic, PERRLA LUNGS: CTAB HEART: RRR, no murmurs ABD: NABS, S/ND/NT, no masses EXTREMITY: No edema, synovial hypertrophy and ulnar drift in hands. SKIN: No rashes, no jaundice NEURO/PSYCH: A & O 3 A/P: A/P: IMP: Anorexia--may be multifactorial, though atypical reflux would be definite consideration. Older patients may present this way. Probable chronic pancreatitis. Seems historically imaging has been stable for many years, therefore, malignancy not likely. May have exocrine insufficiency. Anemia. Still characterizing, but arising since earlier this year and with fairly recent negative EGD and colonoscopy. Generalized weakness, hyponatremia, near hyperkalemia, lowish glucose-- Lynn's? Has one autoimmune disease, perhaps another. Occult malignancy would be consideration, perhaps pulmonary (some abnormalities noted on CT in January w/o definite mass, etc) in patient who has long h/o smoking. Diverticulosis, seems asymptomatic. REC: Agree with trial of PPI. Await iron studies. Will check cortisols. Would consider heme/onc opinion. Stool fat stain, though may not be helpful as not eating much. Consider trial of pancreatic enzymes if not improving. Old records from . --other pending. Thank you for allowing me to assist in the care of this patient. Please call if questions. OTF ARGUETA MD Oct 17, 2017 15:12
[2017-10-17] MEDS: PANTOPRAZOLE 40 MG TABLET.DR. PO SCH (16:06)
[2017-10-17] MEDS: DRONABINOL 2.5 MG CAPSULE. PO SCH (16:06)
[2017-10-17 19:31] LABS: % SAT IRON 63 % (15-34); IRON,SERUM 206 ug/dL (50-170)
[2017-10-17] MEDS: LATANOPROST 0.005% OPHTH SOLUTION 2.5ML BOTTLE. OU SCH (20:22)
[2017-10-17] MEDS: GABAPENTIN 100 MG CAPSULE. PO SCH (20:22)
[2017-10-18] MEDS: AMINO AC 3%/ELECTROLYTE/GLYCER 1,000 ML IV SCH ×3 (00:15→23:49)
[2017-10-18 03:02] VITALS: BP 149/72
[2017-10-18 07:17] VITALS: BP 149/83
[2017-10-18] MEDS: FOLIC ACID 1 MG TABLET. PO SCH ×3 (08:21→21:07)
[2017-10-18] MEDS: MULTIVITAMIN with MINERAL TABLET. PO SCH (08:21)
[2017-10-18] MEDS: PANTOPRAZOLE 40 MG TABLET.DR. PO SCH ×2 (08:21→17:05)
[2017-10-18] MEDS: PSYLLIUM HUSK (SUGAR FREE) 1 PKT PACKET PO SCH (08:21)
[2017-10-18] MEDS: buPROPion SR 100 MG TABLET.SA. PO SCH (08:21)
[2017-10-18] MEDS: ACETAMINOPHEN 500 MG TABLET PO SCH ×2 (08:21→21:24)
[2017-10-18] MEDS: PARoxetine 20 MG TABLET PO SCH (08:21)
[2017-10-18] MEDS: CLOPIDOGREL BISULFATE 75 MG TABLET PO SCH (08:21)
[2017-10-18] MEDS: CALCIUM CARB/VIT D3 500/200 TABLET. PO SCH ×2 (08:21→17:05)
[2017-10-18] MEDS: cycloSPORINE 0.05% OPTH 1 DROP DROPERETTE OU SCH ×2 (08:21→21:06)
--- NOTE | 2017-10-18 08:21 | PDOC2 ---
CONSULT Date of Consult Date of Consult DATE: 10/18/17 TIME: 08:13 Reason for Consult Reason for Consult: weight loss, anemia, failure to thrive Identification/Chief Complaint Chief Complaint failure to thrive Problems: History of Present Illness Reason for Visit: 72 y.o. Female with diagnosis of CLL, COSME stage 0, del 13q, in 2002, followed regularly by Dr Powers at . In July 2010 she was also found to have a pancreatic tail lesion measuring 2.6 cm x 0.9. Endoscopic US biopsy showed "atypical cells" and she developed pancreatitis post-procedure. Thought was this was probably an IPMN. In November 2011 had a f/u MRI and the lesion had not changed in size. Last MRI abdomen at Nov 2016 showed same multiloculated cystic structure in the inferior tail of the pancreas communicating with the main pancreatic duct. The lesion measured 1.8 cm in the coronal plane, no significant change in size or configuration of this lesion when compared with examinations dating back to 11/19/2010. No recent CA 19-9. She was on observation for her CLL from 2002 until Jul 2012 when she started Rituxan for her seronegative rheumatoid arthritis (Rituxan is also helpful for CLL). She received two doses of rituximab on July 14, 2012 and 07/28/12, then received the drug every 6 months through 2016. Her lymphocytosis improved with this therapy. Her rheumatoid arthritis has been poorly controlled lately - on leflunomide and hydroxychloroquine. She has also been told she has Sjogren's (on cevimeline and restasis) and psoriasis as well. She was last seen by Dr Powers in Jul 2017 - BMI was 16 at the time. CBC revealed WBC 9.4 (76% neuts, 13% lymphs), Hgb 12.6, Plt count 566K. LDH normal. Bone density Aug 2017 confirmed severe osteoporosis. She followed with rheum in early Oct, and it was decided to try apremilast ( PDE4 inhibitor) for psoriatic arthritis. This has not been started yet. Her Hgb was noted to be 7.8g/dL, down from 12.6 in Jul 2017. WBC was 14.1K, again neutrophil predominant, and plt count 742K. 2-view CXR 10/07/17 showed emphysema but no nodule or mass. She had had a c-scope in May 2017 that showed diverticulosis, but no other concerning findings. It was recommended she repeat c-scope in 5 years. No EGD done at the time, and her stools have been brown. She lives alone, but her daughter comes to see her 2-3x/week. Still smoking. Weight loss has been progressive over 3 yrs. Nausea, loss of appetite, and early satiety are worsening. Past Medical History Cardiovascular: HTN GI: Constipation Heme/Onc: Anemia NOS (she was not anemic 3 months ago - c-scope in May 2017 was negative for polyps), Cancer, Other (CLL) Musculoskeletal: Other (autoimmune disorders - Sjogren's, seronegative RA?, psoriasis) Dermatology: Psoriasis Family History Family History noncontributory Social History <1 pack per day ALCOHOL: none Drugs: None Lives: with Family Current Medications Current Medications Current Medications Sodium Chloride 1,000 ml @ 100 mls/hr Q10H IV Last administered on 10/16/17 22:03; Start 10/16/17 at 20:36; Stop 10/17/17 at 06:35; Status DC Prochlorperazine Edisylate (Compazine) 10 mg PRN Q6HRS PRN IV NAUSEA/VOMITING; Start 10/16/17 at 20:45 Calcium Carbonate/ Glycine (Tums) 500 mg PRN Q3HRS PRN PO UPSET STOMACH; Start 10/16/17 at 20:45 Heparin Sodium (Porcine) (Heparin Sq) 5,000 unit Q12HR SQ Last administered on 10/17/17 20:27; Start 10/17/17 at 09:00 Acetaminophen (Tylenol) 500 mg BID PO Last administered on 10/17/17 20:23; Start 10/16/17 at 22:00 Bupropion HCl (Wellbutrin Sr) 100 mg DAILY PO Last administered on 10/17/17 08:06; Start 10/17/17 at 09:00 Clopidogrel Bisulfate (Plavix) 75 mg DAILY PO Last administered on 10/17/17 08:06; Start 10/17/17 at 09:00 Cyclosporine (Restasis) 1 drop BID OU Last administered on 10/17/17 20:23; Start 10/17/17 at 09:00 Folic Acid (Folic Acid) 1 mg TID PO Last administered on 10/17/17 20:22; Start 10/16/17 at 22:00 Gabapentin (Neurontin) 200 mg QHS PO Last administered on 10/17/17 20:22; Start 10/16/17 at 22:00 Acetaminophen/ Hydrocodone Bitart (Lortab 5/325) 1 tab Q6HRS PRN PO MODERATE - SEVERE PAIN Last administered on 10/17/17 21:31; Start 10/16/17 at 21:30 Latanoprost (Xalatan) 1 drop HS OU Last administered on 10/17/17 20:22; Start 10/16/17 at 22:00 Metoprolol Succinate (Toprol Xl) 25 mg DAILY PO Last administered on 08:09; Start 10/17/17 at 09:00 Metoprolol Succinate (Toprol Xl) 25 mg DAILY PO ; Start 10/17/17 at 09:00; Status UNV Tramadol HCl (Ultram) 50 mg Q4H PRN PO MILD PAIN; Start 10/16/17 at 21:30 Calcium/Vitamin D (Oscal D 500mg/ 200uts) 1 tab BIDWMEALS PO Last administered on 10/17/17 16:06; Start 10/17/17 at 08:00 Multivitamins (Thera M Plus) 1 tab DAILY PO Last administered on 10/17/17 08: 08; Start 10/17/17 at 09:00 Hydroxyzine HCl (Atarax) 10 mg PRN Q6HRS PRN PO ITCHING; Start 10/16/17 at 21: 30 Ondansetron HCl (Zofran Odt) 4 mg PRN Q6HRS PRN PO NAUSEA/VOMITING; Start at 21:30 Paroxetine HCl (Paxil) 20 mg DAILY PO Last administered on 10/17/17 08:09; Start 10/17/17 at 09:00 Psyllium Hydrophilic Mucilloid (Metamucil Fiber Packet) 1 pkt DAILY PO Last administered on 10/17/17 08:06; Start 10/17/17 at 09:00 Diltiazem HCl (Cardizem 24hr Cd) 240 mg DAILY PO Last administered on 08:08; Start 10/17/17 at 09:00 Magnesium Sulfate/ Dextrose 50 ml @ 25 mls/hr 1X ONCE IV Last administered on 10/17/17 12:05; Start 10/17/17 at 11:45; Stop 10/17/17 at 13:44; Status DC Amino Acids/ Glycerin/ Electrolytes 1,000 ml @ 80 mls/hr [id number] IV Last administered on 10/18/17 00:15; Start 10/17/17 at 11:45 Dronabinol (Marinol) 2.5 mg BIDACLD PO Last administered on 10/17/17 16:06; Start 10/17/17 at 16:30 Pantoprazole Sodium (Protonix) 40 mg BIDAC PO Last administered on 10/17/17 16:06; Start 10/17/17 at 16:30 Active Scripts Active Reported Triamcinolone Acetonide 0.1% Oint (Triamcinolone Acetonide) 15 Gm Oint...g. 1 Tlai TP BID MIX WITH EUCERIN DIRECTED BY PHYSICIAN Tramadol Hcl 50 Mg Tablet 50 Mg PO Q4H PRN Tizanidine Hcl 4 Mg Capsule 8 Mg PO HS Tizanidine Hcl 2 Mg Capsule 2 Mg PO BID Spironolactone 25 Mg Tablet 25 Mg PO DAILY Metamucil Powder (Psyllium Seed (with Sugar)) 575 Gm Powder 575 Gm PO One Daily (Multivitamin) 1 Each Tablet 1 Each PO DAILY Toprol Xl (Metoprolol Succinate) 25 Mg Tab.er.24h 25 Mg PO DAILY Latanoprost 2.5 Ml Drops 1 Drop OP HS Hydroxyzine Hcl 25 Mg Tablet 25 Mg PO Hydroxychloroquine Sulfate 200 Mg Tablet 200 Mg PO BID Folic Acid 1 Mg Tablet 1 Mg PO TID Restasis (Cyclosporine) 1 Each Droperette 1 Drop EACHEYE BID Vitamin D3 (Cholecalciferol (Vitamin D3)) 5,000 Unit Tablet 5,000 Unit PO DAILY Cvs Calcium Citrate + D Tab (Ca Citrate/Mgox/Vit D3/B6/Min) 1 Each Tablet 1 Each PO BID Cvs Calcium Citrate + D Tab (Ca Citrate/Mgox/Vit D3/B6/Min) 1 Each Tablet 1 Each PO Lorcet 5-325 mg Tablet (Hydrocodone/Acetaminophen) 1 Each Tablet Leflunomide 20 Mg Tablet Metoprolol Succinate ( Xl ) (Metoprolol Succinate) 25 Mg Tab.er.24h Paroxetine Hcl 40 Mg Tablet Ondansetron Hcl 8 Mg Tablet Gabapentin 100 Mg Capsule Bupropion Hcl Sr (Bupropion Hcl) 100 Mg Tablet.er Clopidogrel (Clopidogrel Bisulfate) 75 Mg Tablet Furosemide 20 Mg Tablet 10 Mg PO DAILY Tiazac (Diltiazem Hcl) 120 Mg Capsule.er 240 Mg PO Evoxac (Cevimeline Hcl) 30 Mg Capsule 30 Mg PO Acetaminophen 500 Mg Tablet 1 Tab PO BID Allergies Allergies: Coded Allergies: Sulfa (Sulfonamide Antibiotics) (Verified Allergy, Intermediate, 08/29/14) methotrexate (Verified Allergy, Intermediate, 10/16/17) ROS General: YES: Fatigue, Appetite (loss of), Other (progressive weight loss) Hematological and Lymphatic: No: Bleeding Problems, Blood Clots, Blood Transfusions, Brusing, Night Sweats, Pallor, Swollen Lymph Nodes, Other Respiratory: YES: SOB with excertion Gastrointestinal: Yes Nausea Musculoskeletal: Yes Joint Pain, Yes Joint Stiffness, Yes Joint Swelling, Yes Muscular Weakness Skin: Yes Dry Skin, Yes Rash Physical Exam General: Alert, Oriented X3, Cooperative, No acute distress HEENT: Atraumatic, EOMI Lungs: Clear to auscultation, Other (poor air mvmt) Heart: Other (tachy but regular) Abdomen: Normal bowel sounds, Other (mild TTP midepigastrium, no jaundice) Extremities: No edema, Other (chronic nail changes) Skin: Other (plaques on B elbows) Psych/Mental Status: Mental status NL, Mood NL MUSCULOSKELETAL: Other (significant joint changes c/w autoimmune arthritis) Vitals VITALS Vital Signs Date Time Temp Pulse Resp B/P (MAP) Pulse Ox O2 Delivery O2 Flow Rate FiO2 10/18/17 07:18 Room Air 10/18/17 07:17 97.9 105 16 149/83 (105) 90 97.9 Labs Labs Laboratory Tests Test 10/16/17 21:45 10/17/17 03:30 10/17/17 12:15 10/17/17 16:10 Urine Collection Type Unknown Urine Color Yellow Urine Clarity Clear Urine pH 5.5 Urine Specific [place] 1.010 Urine Protein Negative mg/dL (NEG-TRACE) Urine Glucose (UA) Negative mg/dL (NEG) Urine Ketones (Stick) Trace mg/dL (NEG) Urine Blood Negative (NEG) Urine Nitrite Negative (NEG) Urine Bilirubin Negative (NEG) Urine Urobilinogen Dipstick 0.2 mg/dL (0.2 mg/dL) Urine Leukocyte Esterase Negative (NEG) Urine RBC 0 /HPF (0-2) Urine WBC 1-4 /HPF (0-4) Urine Squamous Epithelial Cells Mod /LPF Urine Bacteria Mod /HPF (0-FEW) Urine Mucus Mod /LPF White Blood Count 10.8 x10^3/uL (4.0-11.0) Red Blood Count 2.05 x10^6/uL (3.50-5.40) Hemoglobin 6.2 g/dL (12.0-15.5) Hematocrit 19.2 % (36.0-47.0) Mean Corpuscular Volume 94 fL (79-100) Mean Corpuscular Hemoglobin 30 pg (25-35) Mean Corpuscular Hemoglobin Concent 32 g/dL (31-37) Red Cell Distribution Width 14.3 % (11.5-14.5) Platelet Count 593 x10^3/uL (140-400) Neutrophils (%) (Auto) 77 % (31-73) Lymphocytes (%) (Auto) 12 % (24-48) Monocytes (%) (Auto) 10 % (0-9) Eosinophils (%) (Auto) 1 % (0-3) Basophils (%) (Auto) 1 % (0-3) Neutrophils # (Auto) 8.3 x10^3uL (1.8-7.7) Lymphocytes # (Auto) 1.3 x10^3/uL (1.0-4.8) Monocytes # (Auto) 1.0 x10^3/uL (0.0-1.1) Eosinophils # (Auto) 0.1 x10^3/uL (0.0-0.7) Basophils # (Auto) 0.1 x10^3/uL (0.0-0.2) Sodium Level 133 mmol/L (136-145) Potassium Level 4.2 mmol/L (3.5-5.1) Chloride Level 100 mmol/L (98-107) Carbon Dioxide Level 17 mmol/L (21-32) Anion Gap 16 (6-14) Blood Urea Nitrogen 34 mg/dL (7-20) Creatinine 1.1 mg/dL (0.6-1.0) Estimated GFR (Cockcroft-Gault) 48.7 Glucose Level 60 mg/dL (70-99) Calcium Level 8.2 mg/dL (8.5-10.1) Phosphorus Level 3.6 mg/dL (2.6-4.7) Magnesium Level 1.7 mg/dL (1.8-2.4) Thyroid Stimulating Hormone (TSH) 3.776 uIU/mL (0.358-3.74) Cortisol AM Sample 13.2 ug/dL (4.3-22.4) Iron Level 206 ug/dL (50-170) Total Iron Binding Capacity 327 ug/dL (250-450) Iron Saturation 63 % (15-34) Vitamin B12 Level 1635 pg/mL (247-911) Serum Folate > 24.00 ng/ml (3.2-20.0) Cortisol PM Sample 15.6 ug/dL (3.1-16.7) Laboratory Tests Test 10/17/17 12:15 10/17/17 16:10 Iron Level 206 ug/dL (50-170) Total Iron Binding Capacity 327 ug/dL (250-450) Iron Saturation 63 % (15-34) Vitamin B12 Level 1635 pg/mL (247-911) Serum Folate > 24.00 ng/ml (3.2-20.0) Cortisol PM Sample 15.6 ug/dL (3.1-16.7) Assessment/Plan Assessment/Plan 72 yo F c FTT, new onset anemia, pancreatic mass c/w IPMN in the past, hx of CLL , and multiple autoimmune disorders. FTT, wt loss, nausea, early satiety may be explained by chronic pancreas problems -recommend repeat imaging of pancreas - she is severely claustrophobic and needs general anesthesia for MRIs, so proceed with CT abdomen w/ and w/o contrast, as well as check a CA 19-9. This wouldn't necessarily explain the anemia though. Anemia: check retic count, LDH, hapto; iron panel is considered useless as she had just rec'd PRBC transfusion Autoimmune disorders (psoriasis, Sjogren's, RA? adrenal insuff? panc insufficiency?) - trial of decadron 40mg daily x 4 days - although this will affect her osteoporosis if we were to use steroids chronically, the hope would be that we get her feeling better quickly, then transition to something different MARCEL MANJARREZ MD Oct 18, 2017 08:21
[2017-10-18] MEDS: METOPROLOL SUCC 24HR ER 25 MG TAB.ER.24H. PO SCH (08:22)
[2017-10-18] MEDS: HEPARIN PF for SUB-Q USE 5,000 UNIT/0.5 ML VIAL. SQ SCH ×2 (08:26→21:13)
[2017-10-18 10:48] LABS: BASO # 0.1 x10^3/uL (0.0-0.2); BASO % 1 % (0-3); EOS % 0 % (0-3); HEMATOCRIT 29.6 % (36.0-47.0); HEMOGLOBIN 9.6 g/dL (12.0-15.5); LYMPH # 0.9 x10^3/uL (1.0-4.8); LYMPH % 9 % (24-48); MEAN CORPUSCULAR HEMOGLOBIN 30 pg (25-35); MEAN CORPUSCULAR HGB CONC 32 g/dL (31-37); MEAN CORPUSCULAR VOLUME 92 fL (79-100); MONO % 7 % (0-9); NEUT % 83 % (31-73); PLATELET COUNT 681 x10^3/uL (140-400); RED BLOOD COUNT 3.22 x10^6/uL (3.50-5.40); RED CELL DISTRIBUTION WIDTH 14.7 % (11.5-14.5); WHITE BLOOD COUNT 10.4 x10^3/uL (4.0-11.0)
[2017-10-18 10:58] LABS: CALCIUM 9.4 mg/dL (8.5-10.1); CREATININE 1.1 mg/dL (0.6-1.0); GFR 48.6; POTASSIUM 4.8 mmol/L (3.5-5.1)
[2017-10-18] MEDS ORDERED: CONTRAST GIVEN MC PRN ×2 (11:00→16:45)
[2017-10-18] MEDS ORDERED: IOHEXOL 300 MG/ML 100ML VIAL. IV ONE ×2 (11:00→16:45)
[2017-10-18] MEDS ORDERED: IOHEXOL 240 MG/ML 50ML VIAL. PO ONE ×3 (11:00→16:45)
[2017-10-18] MEDS: DRONABINOL 2.5 MG CAPSULE. PO SCH ×2 (11:08→17:05)
[2017-10-18 11:42] VITALS: BP 129/75
--- NOTE | 2017-10-18 11:44 | PDOC ---
GI PROGRESS NOTES Date Date/Time DATE: 10/18/17 TIME: 11:39 Subjective Subjective complex history- weight loss, anorexia- numerous chronic medical problems- CLL , RA, Sjorgens, pancreatitis Objective Vitals Vital Signs Date Time Temp Pulse Resp B/P (MAP) Pulse Ox O2 Delivery O2 Flow Rate FiO2 10/18/17 08:22 105 149/83 10/18/17 08:22 105 149/83 10/18/17 07:18 Room Air 10/18/17 07:17 97.9 105 16 149/83 (105) 90 Room Air 97.9 10/18/17 03:02 98.1 72 16 149/72 (97) 90 Room Air 98.1 10/17/17 23:55 98.8 88 16 139/61 (87) 90 Room Air 98.8 10/17/17 22:46 Room Air 10/17/17 21:31 Room Air 10/17/17 20:00 Room Air 10/17/17 19:52 97.3 91 16 158/82 (107) 91 Room Air 97.3 10/17/17 14:37 98.5 93 17 150/72 (98) 96 Room Air 98.5 10/17/17 12:16 98.6 94 16 155/77 (103) 98.6 Labs Labs Laboratory Tests Test 10/17/17 12:15 10/17/17 16:10 10/18/17 10:15 Iron Level 206 ug/dL (50-170) Total Iron Binding Capacity 327 ug/dL (250-450) Iron Saturation 63 % (15-34) Vitamin B12 Level 1635 pg/mL (247-911) Serum Folate > 24.00 ng/ml (3.2-20.0) Cortisol PM Sample 15.6 ug/dL (3.1-16.7) White Blood Count 10.4 x10^3/uL (4.0-11.0) Red Blood Count 3.22 x10^6/uL (3.50-5.40) Hemoglobin 9.6 g/dL (12.0-15.5) Hematocrit 29.6 % (36.0-47.0) Mean Corpuscular Volume 92 fL (79-100) Mean Corpuscular Hemoglobin 30 pg (25-35) Mean Corpuscular Hemoglobin Concent 32 g/dL (31-37) Red Cell Distribution Width 14.7 % (11.5-14.5) Platelet Count 681 x10^3/uL (140-400) Neutrophils (%) (Auto) 83 % (31-73) Lymphocytes (%) (Auto) 9 % (24-48) Monocytes (%) (Auto) 7 % (0-9) Eosinophils (%) (Auto) 0 % (0-3) Basophils (%) (Auto) 1 % (0-3) Neutrophils # (Auto) 8.6 x10^3uL (1.8-7.7) Lymphocytes # (Auto) 0.9 x10^3/uL (1.0-4.8) Monocytes # (Auto) 0.7 x10^3/uL (0.0-1.1) Eosinophils # (Auto) 0.0 x10^3/uL (0.0-0.7) Basophils # (Auto) 0.1 x10^3/uL (0.0-0.2) Reticulocyte Count (auto) 3.0 % (0.5-2.5) Fibrinogen 686 mg/dL (200-440) Sodium Level 131 mmol/L (136-145) Potassium Level 4.8 mmol/L (3.5-5.1) Chloride Level 94 mmol/L (98-107) Carbon Dioxide Level 24 mmol/L (21-32) Anion Gap 13 (6-14) Blood Urea Nitrogen 30 mg/dL (7-20) Creatinine 1.1 mg/dL (0.6-1.0) Estimated GFR (Cockcroft-Gault) 48.6 Glucose Level 92 mg/dL (70-99) Calcium Level 9.4 mg/dL (8.5-10.1) Magnesium Level 2.0 mg/dL (1.8-2.4) Lactate Dehydrogenase 234 U/L (81-234) Prealbumin 29.5 mg/dL (16.0-42.0) Physical Exam Physical Exam thin, chest-clear cor- RRR abd- soft non tender no mass Assessment Assessment Chronic anorexia and malnutrition and weight loss- cortisols are OK- agree with Dr. Mcnair,with complex autoimmune issues, short course of steroids not unreasonable Chronic anemia- no overt bleeding, iron and B12 , folate are high and unreliable - likely chronic process chronic pancreatitis and ? prior IPMN- agree with CT - since no mass seen in 2013 and EUS done in 2009, agree with imaging to see if any obvious changes have occurred- also agree with empiric trial of enzymes and will start them today Problems: Plan Plan agree with CT agree with steroid trial will start pancreatic enzymes empirically as well may need referral back to [facility] for repeat EUS etc as well CONRAD FREEMAN MD Oct 18, 2017 11:44
[2017-10-18] MEDS: LIPASE/PROTEAS/AMYLAS 10/34/55 CAPSULE.DR. PO SCH ×2 (12:00→17:05)
--- NOTE | 2017-10-18 12:01 | PDOC ---
PROGRESS NOTES Subjective Subjective SEEN IN FOLLOW UP OF RF DUE TO DEHYDRATION Objective Objective Vital Signs Date Time Temp Pulse Resp B/P (MAP) Pulse Ox O2 Delivery O2 Flow Rate FiO2 10/18/17 11:42 97.4 102 17 129/75 (93) 94 Room Air 97.4 Intake and Output 10/18/17 07:00 Intake Total 2930 ml Output Total 2600 ml Balance 330 ml Intake Oral 2210 ml Blood Product IV Normal Saline Flush 720 ml Output Urine Total 2600 ml Physical Exam Abdomen: Normal bowel sounds, Soft, No tenderness, No hepatosplenomegaly, No masses Heart: Regular rate, Normal S1, Normal S2, No murmurs, Gallops Extremities: No clubbing, No cyanosis, No edema, Normal pulses, No tenderness/ swelling General: Alert, Oriented X3, Cooperative, No acute distress Lungs: Clear to auscultation, Normal air movement Neuro: Normal gait, Normal speech, Normal tone, Sensation intact, Reflexes 2+ Psych/Mental Status: Mental status NL, Mood NL Diagnosis RENAL FAILURE: Acute, Other (DEHYDRATION) Plan Plan of Care CONT IVF AND FOLLOW RENAL FUNCTION. NO SIGNIFICANT CHANGE IN RENAL FUNCTION. DISCUSSED WITH PATIENT Comment Review of Relevant I have reviewed the following items sawyer (where applicable) has been applied. Labs Laboratory Tests Test 10/16/17 21:45 10/17/17 03:30 10/17/17 12:15 10/17/17 16:10 Urine Collection Type Unknown Urine Color Yellow Urine Clarity Clear Urine pH 5.5 Urine Specific [place] 1.010 Urine Protein Negative mg/dL (NEG-TRACE) Urine Glucose (UA) Negative mg/dL (NEG) Urine Ketones (Stick) Trace mg/dL (NEG) Urine Blood Negative (NEG) Urine Nitrite Negative (NEG) Urine Bilirubin Negative (NEG) Urine Urobilinogen Dipstick 0.2 mg/dL (0.2 mg/dL) Urine Leukocyte Esterase Negative (NEG) Urine RBC 0 /HPF (0-2) Urine WBC 1-4 /HPF (0-4) Urine Squamous Epithelial Cells Mod /LPF Urine Bacteria Mod /HPF (0-FEW) Urine Mucus Mod /LPF White Blood Count 10.8 x10^3/uL (4.0-11.0) Red Blood Count 2.05 x10^6/uL (3.50-5.40) Hemoglobin 6.2 g/dL (12.0-15.5) Hematocrit 19.2 % (36.0-47.0) Mean Corpuscular Volume 94 fL (79-100) Mean Corpuscular Hemoglobin 30 pg (25-35) Mean Corpuscular Hemoglobin Concent 32 g/dL (31-37) Red Cell Distribution Width 14.3 % (11.5-14.5) Platelet Count 593 x10^3/uL (140-400) Neutrophils (%) (Auto) 77 % (31-73) Lymphocytes (%) (Auto) 12 % (24-48) Monocytes (%) (Auto) 10 % (0-9) Eosinophils (%) (Auto) 1 % (0-3) Basophils (%) (Auto) 1 % (0-3) Neutrophils # (Auto) 8.3 x10^3uL (1.8-7.7) Lymphocytes # (Auto) 1.3 x10^3/uL (1.0-4.8) Monocytes # (Auto) 1.0 x10^3/uL (0.0-1.1) Eosinophils # (Auto) 0.1 x10^3/uL (0.0-0.7) Basophils # (Auto) 0.1 x10^3/uL (0.0-0.2) Sodium Level 133 mmol/L (136-145) Potassium Level 4.2 mmol/L (3.5-5.1) Chloride Level 100 mmol/L (98-107) Carbon Dioxide Level 17 mmol/L (21-32) Anion Gap 16 (6-14) Blood Urea Nitrogen 34 mg/dL (7-20) Creatinine 1.1 mg/dL (0.6-1.0) Estimated GFR (Cockcroft-Gault) 48.7 Glucose Level 60 mg/dL (70-99) Calcium Level 8.2 mg/dL (8.5-10.1) Phosphorus Level 3.6 mg/dL (2.6-4.7) Magnesium Level 1.7 mg/dL (1.8-2.4) Thyroid Stimulating Hormone (TSH) 3.776 uIU/mL (0.358-3.74) Cortisol AM Sample 13.2 ug/dL (4.3-22.4) Iron Level 206 ug/dL (50-170) Total Iron Binding Capacity 327 ug/dL (250-450) Iron Saturation 63 % (15-34) Vitamin B12 Level 1635 pg/mL (247-911) Serum Folate > 24.00 ng/ml (3.2-20.0) Cortisol PM Sample 15.6 ug/dL (3.1-16.7) Test 10/18/17 10:15 White Blood Count 10.4 x10^3/uL (4.0-11.0) Red Blood Count 3.22 x10^6/uL (3.50-5.40) Hemoglobin 9.6 g/dL (12.0-15.5) Hematocrit 29.6 % (36.0-47.0) Mean Corpuscular Volume 92 fL (79-100) Mean Corpuscular Hemoglobin 30 pg (25-35) Mean Corpuscular Hemoglobin Concent 32 g/dL (31-37) Red Cell Distribution Width 14.7 % (11.5-14.5) Platelet Count 681 x10^3/uL (140-400) Neutrophils (%) (Auto) 83 % (31-73) Lymphocytes (%) (Auto) 9 % (24-48) Monocytes (%) (Auto) 7 % (0-9) Eosinophils (%) (Auto) 0 % (0-3) Basophils (%) (Auto) 1 % (0-3) Neutrophils # (Auto) 8.6 x10^3uL (1.8-7.7) Lymphocytes # (Auto) 0.9 x10^3/uL (1.0-4.8) Monocytes # (Auto) 0.7 x10^3/uL (0.0-1.1) Eosinophils # (Auto) 0.0 x10^3/uL (0.0-0.7) Basophils # (Auto) 0.1 x10^3/uL (0.0-0.2) Reticulocyte Count (auto) 3.0 % (0.5-2.5) Fibrinogen 686 mg/dL (200-440) Sodium Level 131 mmol/L (136-145) Potassium Level 4.8 mmol/L (3.5-5.1) Chloride Level 94 mmol/L (98-107) Carbon Dioxide Level 24 mmol/L (21-32) Anion Gap 13 (6-14) Blood Urea Nitrogen 30 mg/dL (7-20) Creatinine 1.1 mg/dL (0.6-1.0) Estimated GFR (Cockcroft-Gault) 48.6 Glucose Level 92 mg/dL (70-99) Calcium Level 9.4 mg/dL (8.5-10.1) Magnesium Level 2.0 mg/dL (1.8-2.4) Lactate Dehydrogenase 234 U/L (81-234) Prealbumin 29.5 mg/dL (16.0-42.0) Laboratory Tests Test 10/17/17 12:15 10/17/17 16:10 10/18/17 10:15 Iron Level 206 ug/dL (50-170) Total Iron Binding Capacity 327 ug/dL (250-450) Iron Saturation 63 % (15-34) Vitamin B12 Level 1635 pg/mL (247-911) Serum Folate > 24.00 ng/ml (3.2-20.0) Cortisol PM Sample 15.6 ug/dL (3.1-16.7) White Blood Count 10.4 x10^3/uL (4.0-11.0) Red Blood Count 3.22 x10^6/uL (3.50-5.40) Hemoglobin 9.6 g/dL (12.0-15.5) Hematocrit 29.6 % (36.0-47.0) Mean Corpuscular Volume 92 fL (79-100) Mean Corpuscular Hemoglobin 30 pg (25-35) Mean Corpuscular Hemoglobin Concent 32 g/dL (31-37) Red Cell Distribution Width 14.7 % (11.5-14.5) Platelet Count 681 x10^3/uL (140-400) Neutrophils (%) (Auto) 83 % (31-73) Lymphocytes (%) (Auto) 9 % (24-48) Monocytes (%) (Auto) 7 % (0-9) Eosinophils (%) (Auto) 0 % (0-3) Basophils (%) (Auto) 1 % (0-3) Neutrophils # (Auto) 8.6 x10^3uL (1.8-7.7) Lymphocytes # (Auto) 0.9 x10^3/uL (1.0-4.8) Monocytes # (Auto) 0.7 x10^3/uL (0.0-1.1) Eosinophils # (Auto) 0.0 x10^3/uL (0.0-0.7) Basophils # (Auto) 0.1 x10^3/uL (0.0-0.2) Reticulocyte Count (auto) 3.0 % (0.5-2.5) Fibrinogen 686 mg/dL (200-440) Sodium Level 131 mmol/L (136-145) Potassium Level 4.8 mmol/L (3.5-5.1) Chloride Level 94 mmol/L (98-107) Carbon Dioxide Level 24 mmol/L (21-32) Anion Gap 13 (6-14) Blood Urea Nitrogen 30 mg/dL (7-20) Creatinine 1.1 mg/dL (0.6-1.0) Estimated GFR (Cockcroft-Gault) 48.6 Glucose Level 92 mg/dL (70-99) Calcium Level 9.4 mg/dL (8.5-10.1) Magnesium Level 2.0 mg/dL (1.8-2.4) Lactate Dehydrogenase 234 U/L (81-234) Prealbumin 29.5 mg/dL (16.0-42.0) Medications Current Medications Sodium Chloride 1,000 ml @ 100 mls/hr Q10H IV Last administered on 10/16/17 22:03; Start 10/16/17 at 20:36; Stop 10/17/17 at 06:35; Status DC Prochlorperazine Edisylate (Compazine) 10 mg PRN Q6HRS PRN IV NAUSEA/VOMITING; Start 10/16/17 at 20:45 Calcium Carbonate/ Glycine (Tums) 500 mg PRN Q3HRS PRN PO UPSET STOMACH; Start 10/16/17 at 20:45 Heparin Sodium (Porcine) (Heparin Sq) 5,000 unit Q12HR SQ Last administered on 10/18/17 08:26; Start 10/17/17 at 09:00 Acetaminophen (Tylenol) 500 mg BID PO Last administered on 10/18/17 08:21; Start 10/16/17 at 22:00 Bupropion HCl (Wellbutrin Sr) 100 mg DAILY PO Last administered on 10/18/17 08:21; Start 10/17/17 at 09:00 Clopidogrel Bisulfate (Plavix) 75 mg DAILY PO Last administered on 10/18/17 08:21; Start 10/17/17 at 09:00 Cyclosporine (Restasis) 1 drop BID OU Last administered on 10/18/17 08:21; Start 10/17/17 at 09:00 Folic Acid (Folic Acid) 1 mg TID PO Last administered on 10/18/17 08:21; Start 10/16/17 at 22:00 Gabapentin (Neurontin) 200 mg QHS PO Last administered on 10/17/17 20:22; Start 10/16/17 at 22:00 Acetaminophen/ Hydrocodone Bitart (Lortab 5/325) 1 tab Q6HRS PRN PO MODERATE - SEVERE PAIN Last administered on 10/17/17 21:31; Start 10/16/17 at 21:30 Latanoprost (Xalatan) 1 drop HS OU Last administered on 10/17/17 20:22; Start 10/16/17 at 22:00 Metoprolol Succinate (Toprol Xl) 25 mg DAILY PO Last administered on 08:22; Start 10/17/17 at 09:00 Metoprolol Succinate (Toprol Xl) 25 mg DAILY PO ; Start 10/17/17 at 09:00; Status UNV Tramadol HCl (Ultram) 50 mg Q4H PRN PO MILD PAIN; Start 10/16/17 at 21:30 Calcium/Vitamin D (Oscal D 500mg/ 200uts) 1 tab BIDWMEALS PO Last administered on 10/18/17 08:21; Start 10/17/17 at 08:00 Multivitamins (Thera M Plus) 1 tab DAILY PO Last administered on 10/18/17 08: 21; Start 10/17/17 at 09:00 Hydroxyzine HCl (Atarax) 10 mg PRN Q6HRS PRN PO ITCHING; Start 10/16/17 at 21: 30 Ondansetron HCl (Zofran Odt) 4 mg PRN Q6HRS PRN PO NAUSEA/VOMITING; Start at 21:30 Paroxetine HCl (Paxil) 20 mg DAILY PO Last administered on 10/18/17 08:21; Start 10/17/17 at 09:00 Psyllium Hydrophilic Mucilloid (Metamucil Fiber Packet) 1 pkt DAILY PO Last administered on 10/18/17 08:21; Start 10/17/17 at 09:00 Diltiazem HCl (Cardizem 24hr Cd) 240 mg DAILY PO Last administered on 08:22; Start 10/17/17 at 09:00 Magnesium Sulfate/ Dextrose 50 ml @ 25 mls/hr 1X ONCE IV Last administered on 10/17/17 12:05; Start 10/17/17 at 11:45; Stop 10/17/17 at 13:44; Status DC Amino Acids/ Glycerin/ Electrolytes 1,000 ml @ 80 mls/hr [id number] IV Last administered on 10/18/17 11:09; Start 10/17/17 at 11:45 Dronabinol (Marinol) 2.5 mg BIDACLD PO Last administered on 10/18/17 11:08; Start 10/17/17 at 16:30 Pantoprazole Sodium (Protonix) 40 mg BIDAC PO Last administered on 10/18/17 08:21; Start 10/17/17 at 16:30 Iohexol (Omnipaque 300 Mg/ml) 75 ml 1X ONCE IV ; Start 10/18/17 at 11:00; Stop 10/18/17 at 11:01; Status DC Iohexol (Omnipaque 240 Mg/ml) 50 ml 1X ONCE PO ; Start 10/18/17 at 11:00; Stop 10/18/17 at 11:01; Status DC Info (Do NOT chart on this entry -- for MONITORING) 1 each PRN DAILY PRN MC SEE COMMENTS; Start 10/18/17 at 11:00; Stop 10/20/17 at 10:59 Amylase/Lipase/ Protease (Zenpep 10,000) 2 cap TIDWMEALS PO ; Start 10/18/17 at 12:00 Active Scripts Active Reported Triamcinolone Acetonide 0.1% Oint (Triamcinolone Acetonide) 15 Gm Oint...g. 1 Tali TP BID MIX WITH EUCERIN DIRECTED BY PHYSICIAN Tramadol Hcl 50 Mg Tablet 50 Mg PO Q4H PRN Tizanidine Hcl 4 Mg Capsule 8 Mg PO HS Tizanidine Hcl 2 Mg Capsule 2 Mg PO BID Spironolactone 25 Mg Tablet 25 Mg PO DAILY Metamucil Powder (Psyllium Seed (with Sugar)) 575 Gm Powder 575 Gm PO One Daily (Multivitamin) 1 Each Tablet 1 Each PO DAILY Toprol Xl (Metoprolol Succinate) 25 Mg Tab.er.24h 25 Mg PO DAILY Latanoprost 2.5 Ml Drops 1 Drop OP HS Hydroxyzine Hcl 25 Mg Tablet 25 Mg PO Hydroxychloroquine Sulfate 200 Mg Tablet 200 Mg PO BID Folic Acid 1 Mg Tablet 1 Mg PO TID Restasis (Cyclosporine) 1 Each Droperette 1 Drop EACHEYE BID Vitamin D3 (Cholecalciferol (Vitamin D3)) 5,000 Unit Tablet 5,000 Unit PO DAILY [facility] Calcium Citrate + D Tab (Ca Citrate/Mgox/Vit D3/B6/Min) 1 Each Tablet 1 Each PO BID [facility] Calcium Citrate + D Tab (Ca Citrate/Mgox/Vit D3/B6/Min) 1 Each Tablet 1 Each PO Lorcet 5-325 mg Tablet (Hydrocodone/Acetaminophen) 1 Each Tablet Leflunomide 20 Mg Tablet Metoprolol Succinate ( Xl ) (Metoprolol Succinate) 25 Mg Tab.er.24h Paroxetine Hcl 40 Mg Tablet Ondansetron Hcl 8 Mg Tablet Gabapentin 100 Mg Capsule Bupropion Hcl Sr (Bupropion Hcl) 100 Mg Tablet.er Clopidogrel (Clopidogrel Bisulfate) 75 Mg Tablet Furosemide 20 Mg Tablet 10 Mg PO DAILY Tiazac (Diltiazem Hcl) 120 Mg Capsule.er 240 Mg PO Evoxac (Cevimeline Hcl) 30 Mg Capsule 30 Mg PO Acetaminophen 500 Mg Tablet 1 Tab PO BID Vitals/I & O Vital Sign - Last 24 Hours 10/17/17 10/17/17 10/17/17 10/17/17 12:16 14:37 19:52 20:00 Temp 98.6 98.5 97.3 98.6 98.5 97.3 Pulse 94 93 91 Resp 16 17 16 B/P (MAP) 155/77 (103) 150/72 (98) 158/82 (107) Pulse Ox 96 91 O2 Delivery Room Air Room Air Room Air 10/17/17 10/17/17 10/17/17 10/18/17 21:31 22:46 23:55 03:02 Temp 98.8 98.1 98.8 98.1 Pulse 88 72 Resp 16 16 B/P (MAP) 139/61 (87) 149/72 (97) Pulse Ox 90 90 O2 Delivery Room Air Room Air Room Air Room Air 10/18/17 10/18/17 10/18/17 10/18/17 07:17 07:18 08:22 08:22 Temp 97.9 97.9 Pulse 105 105 105 Resp 16 B/P (MAP) 149/83 (105) 149/83 149/83 Pulse Ox 90 O2 Delivery Room Air Room Air 10/18/17 11:42 Temp 97.4 97.4 Pulse 102 Resp 17 B/P (MAP) 129/75 (93) Pulse Ox 94 O2 Delivery Room Air Intake and Output 10/17/17 10/17/17 10/18/17 15:00 23:00 07:00 Intake Total 970 ml 1800 ml 160 ml Output Total 300 ml 700 ml 1600 ml Balance 670 ml 1100 ml -1440 ml Nutrition Consultation Dietary Evaluation: Recommendations by RD: Increase Calorie Intake, Protein supplementation Comments: boost plus, boost pudding, magic cup w/ meals Expected Outcomes/Goals: to meet > 75% est nutr needs Malnutrition Findings: Body Fat Depletion (Non Severe: Mod to Severe Weight Status: Underweight OTF WALTON MD Oct 18, 2017 12:01
--- NOTE | 2017-10-18 13:57 | PDOC ---
PROGRESS NOTES Chief Complaint Chief Complaint Weakness, FTT 1. FTT: weight loss and weakness, BMI 16 eating a little more here. no vomiting. 2. Anorexia: unclear etiology. med related vs mesenteric ischemia vs GI malignancy Onc consult has started decadron 3. CHEIKH: vasomotor improving with IVF 4. 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 Hypomagnesemia and hyponatremia: replete IV 6. Anemia: anemia labs pending. transfuse PRBC x1 yesterday 7. Prophylaxis: PPI, lovenox History of Present Illness History of Present Illness feels a little better. no focal c/o Vitals Vitals Vital Signs Date Time Temp Pulse Resp B/P (MAP) Pulse Ox O2 Delivery O2 Flow Rate FiO2 10/18/17 11:42 97.4 102 17 129/75 (93) 94 Room Air 97.4 Physical Exam Physical Exam cachectic General: Alert, Oriented X3, Cooperative, No acute distress Heart: Regular rate, Normal S1, Normal S2, No murmurs, Gallops Lungs: Clear Abdomen: Normal bowel sounds, Soft, No tenderness, No hepatosplenomegaly, No masses Extremities: No clubbing, No cyanosis, No edema, Normal pulses, No tenderness/ swelling Skin: Other (plaques on B elbows) Labs LABS Laboratory Tests Test 10/17/17 16:10 10/18/17 10:15 Cortisol PM Sample 15.6 ug/dL (3.1-16.7) White Blood Count 10.4 x10^3/uL (4.0-11.0) Red Blood Count 3.22 x10^6/uL (3.50-5.40) Hemoglobin 9.6 g/dL (12.0-15.5) Hematocrit 29.6 % (36.0-47.0) Mean Corpuscular Volume 92 fL (79-100) Mean Corpuscular Hemoglobin 30 pg (25-35) Mean Corpuscular Hemoglobin Concent 32 g/dL (31-37) Red Cell Distribution Width 14.7 % (11.5-14.5) Platelet Count 681 x10^3/uL (140-400) Neutrophils (%) (Auto) 83 % (31-73) Lymphocytes (%) (Auto) 9 % (24-48) Monocytes (%) (Auto) 7 % (0-9) Eosinophils (%) (Auto) 0 % (0-3) Basophils (%) (Auto) 1 % (0-3) Neutrophils # (Auto) 8.6 x10^3uL (1.8-7.7) Lymphocytes # (Auto) 0.9 x10^3/uL (1.0-4.8) Monocytes # (Auto) 0.7 x10^3/uL (0.0-1.1) Eosinophils # (Auto) 0.0 x10^3/uL (0.0-0.7) Basophils # (Auto) 0.1 x10^3/uL (0.0-0.2) Reticulocyte Count (auto) 3.0 % (0.5-2.5) Fibrinogen 686 mg/dL (200-440) Sodium Level 131 mmol/L (136-145) Potassium Level 4.8 mmol/L (3.5-5.1) Chloride Level 94 mmol/L (98-107) Carbon Dioxide Level 24 mmol/L (21-32) Anion Gap 13 (6-14) Blood Urea Nitrogen 30 mg/dL (7-20) Creatinine 1.1 mg/dL (0.6-1.0) Estimated GFR (Cockcroft-Gault) 48.6 Glucose Level 92 mg/dL (70-99) Calcium Level 9.4 mg/dL (8.5-10.1) Magnesium Level 2.0 mg/dL (1.8-2.4) Lactate Dehydrogenase 234 U/L (81-234) Prealbumin 29.5 mg/dL (16.0-42.0) Review of Systems Review of Systems no n.v.d PO intake a little better CT today try PT Comment Review of Relevant I have reviewed the following items sawyer (where applicable) has been applied. Labs Laboratory Tests Test 10/16/17 21:45 10/17/17 03:30 10/17/17 12:15 10/17/17 16:10 Urine Collection Type Unknown Urine Color Yellow Urine Clarity Clear Urine pH 5.5 Urine Specific [place] 1.010 Urine Protein Negative mg/dL (NEG-TRACE) Urine Glucose (UA) Negative mg/dL (NEG) Urine Ketones (Stick) Trace mg/dL (NEG) Urine Blood Negative (NEG) Urine Nitrite Negative (NEG) Urine Bilirubin Negative (NEG) Urine Urobilinogen Dipstick 0.2 mg/dL (0.2 mg/dL) Urine Leukocyte Esterase Negative (NEG) Urine RBC 0 /HPF (0-2) Urine WBC 1-4 /HPF (0-4) Urine Squamous Epithelial Cells Mod /LPF Urine Bacteria Mod /HPF (0-FEW) Urine Mucus Mod /LPF White Blood Count 10.8 x10^3/uL (4.0-11.0) Red Blood Count 2.05 x10^6/uL (3.50-5.40) Hemoglobin 6.2 g/dL (12.0-15.5) Hematocrit 19.2 % (36.0-47.0) Mean Corpuscular Volume 94 fL (79-100) Mean Corpuscular Hemoglobin 30 pg (25-35) Mean Corpuscular Hemoglobin Concent 32 g/dL (31-37) Red Cell Distribution Width 14.3 % (11.5-14.5) Platelet Count 593 x10^3/uL (140-400) Neutrophils (%) (Auto) 77 % (31-73) Lymphocytes (%) (Auto) 12 % (24-48) Monocytes (%) (Auto) 10 % (0-9) Eosinophils (%) (Auto) 1 % (0-3) Basophils (%) (Auto) 1 % (0-3) Neutrophils # (Auto) 8.3 x10^3uL (1.8-7.7) Lymphocytes # (Auto) 1.3 x10^3/uL (1.0-4.8) Monocytes # (Auto) 1.0 x10^3/uL (0.0-1.1) Eosinophils # (Auto) 0.1 x10^3/uL (0.0-0.7) Basophils # (Auto) 0.1 x10^3/uL (0.0-0.2) Sodium Level 133 mmol/L (136-145) Potassium Level 4.2 mmol/L (3.5-5.1) Chloride Level 100 mmol/L (98-107) Carbon Dioxide Level 17 mmol/L (21-32) Anion Gap 16 (6-14) Blood Urea Nitrogen 34 mg/dL (7-20) Creatinine 1.1 mg/dL (0.6-1.0) Estimated GFR (Cockcroft-Gault) 48.7 Glucose Level 60 mg/dL (70-99) Calcium Level 8.2 mg/dL (8.5-10.1) Phosphorus Level 3.6 mg/dL (2.6-4.7) Magnesium Level 1.7 mg/dL (1.8-2.4) Thyroid Stimulating Hormone (TSH) 3.776 uIU/mL (0.358-3.74) Cortisol AM Sample 13.2 ug/dL (4.3-22.4) Iron Level 206 ug/dL (50-170) Total Iron Binding Capacity 327 ug/dL (250-450) Iron Saturation 63 % (15-34) Vitamin B12 Level 1635 pg/mL (247-911) Serum Folate > 24.00 ng/ml (3.2-20.0) Cortisol PM Sample 15.6 ug/dL (3.1-16.7) Test 10/18/17 10:15 White Blood Count 10.4 x10^3/uL (4.0-11.0) Red Blood Count 3.22 x10^6/uL (3.50-5.40) Hemoglobin 9.6 g/dL (12.0-15.5) Hematocrit 29.6 % (36.0-47.0) Mean Corpuscular Volume 92 fL (79-100) Mean Corpuscular Hemoglobin 30 pg (25-35) Mean Corpuscular Hemoglobin Concent 32 g/dL (31-37) Red Cell Distribution Width 14.7 % (11.5-14.5) Platelet Count 681 x10^3/uL (140-400) Neutrophils (%) (Auto) 83 % (31-73) Lymphocytes (%) (Auto) 9 % (24-48) Monocytes (%) (Auto) 7 % (0-9) Eosinophils (%) (Auto) 0 % (0-3) Basophils (%) (Auto) 1 % (0-3) Neutrophils # (Auto) 8.6 x10^3uL (1.8-7.7) Lymphocytes # (Auto) 0.9 x10^3/uL (1.0-4.8) Monocytes # (Auto) 0.7 x10^3/uL (0.0-1.1) Eosinophils # (Auto) 0.0 x10^3/uL (0.0-0.7) Basophils # (Auto) 0.1 x10^3/uL (0.0-0.2) Reticulocyte Count (auto) 3.0 % (0.5-2.5) Fibrinogen 686 mg/dL (200-440) Sodium Level 131 mmol/L (136-145) Potassium Level 4.8 mmol/L (3.5-5.1) Chloride Level 94 mmol/L (98-107) Carbon Dioxide Level 24 mmol/L (21-32) Anion Gap 13 (6-14) Blood Urea Nitrogen 30 mg/dL (7-20) Creatinine 1.1 mg/dL (0.6-1.0) Estimated GFR (Cockcroft-Gault) 48.6 Glucose Level 92 mg/dL (70-99) Calcium Level 9.4 mg/dL (8.5-10.1) Magnesium Level 2.0 mg/dL (1.8-2.4) Lactate Dehydrogenase 234 U/L (81-234) Prealbumin 29.5 mg/dL (16.0-42.0) Laboratory Tests Test 10/17/17 16:10 10/18/17 10:15 Cortisol PM Sample 15.6 ug/dL (3.1-16.7) White Blood Count 10.4 x10^3/uL (4.0-11.0) Red Blood Count 3.22 x10^6/uL (3.50-5.40) Hemoglobin 9.6 g/dL (12.0-15.5) Hematocrit 29.6 % (36.0-47.0) Mean Corpuscular Volume 92 fL (79-100) Mean Corpuscular Hemoglobin 30 pg (25-35) Mean Corpuscular Hemoglobin Concent 32 g/dL (31-37) Red Cell Distribution Width 14.7 % (11.5-14.5) Platelet Count 681 x10^3/uL (140-400) Neutrophils (%) (Auto) 83 % (31-73) Lymphocytes (%) (Auto) 9 % (24-48) Monocytes (%) (Auto) 7 % (0-9) Eosinophils (%) (Auto) 0 % (0-3) Basophils (%) (Auto) 1 % (0-3) Neutrophils # (Auto) 8.6 x10^3uL (1.8-7.7) Lymphocytes # (Auto) 0.9 x10^3/uL (1.0-4.8) Monocytes # (Auto) 0.7 x10^3/uL (0.0-1.1) Eosinophils # (Auto) 0.0 x10^3/uL (0.0-0.7) Basophils # (Auto) 0.1 x10^3/uL (0.0-0.2) Reticulocyte Count (auto) 3.0 % (0.5-2.5) Fibrinogen 686 mg/dL (200-440) Sodium Level 131 mmol/L (136-145) Potassium Level 4.8 mmol/L (3.5-5.1) Chloride Level 94 mmol/L (98-107) Carbon Dioxide Level 24 mmol/L (21-32) Anion Gap 13 (6-14) Blood Urea Nitrogen 30 mg/dL (7-20) Creatinine 1.1 mg/dL (0.6-1.0) Estimated GFR (Cockcroft-Gault) 48.6 Glucose Level 92 mg/dL (70-99) Calcium Level 9.4 mg/dL (8.5-10.1) Magnesium Level 2.0 mg/dL (1.8-2.4) Lactate Dehydrogenase 234 U/L (81-234) Prealbumin 29.5 mg/dL (16.0-42.0) Medications Current Medications Sodium Chloride 1,000 ml @ 100 mls/hr Q10H IV Last administered on 10/16/17 22:03; Start 10/16/17 at 20:36; Stop 10/17/17 at 06:35; Status DC Prochlorperazine Edisylate (Compazine) 10 mg PRN Q6HRS PRN IV NAUSEA/VOMITING; Start 10/16/17 at 20:45 Calcium Carbonate/ Glycine (Tums) 500 mg PRN Q3HRS PRN PO UPSET STOMACH; Start 10/16/17 at 20:45 Heparin Sodium (Porcine) (Heparin Sq) 5,000 unit Q12HR SQ Last administered on 10/18/17 08:26; Start 10/17/17 at 09:00 Acetaminophen (Tylenol) 500 mg BID PO Last administered on 10/18/17 08:21; Start 10/16/17 at 22:00 Bupropion HCl (Wellbutrin Sr) 100 mg DAILY PO Last administered on 10/18/17 08:21; Start 10/17/17 at 09:00 Clopidogrel Bisulfate (Plavix) 75 mg DAILY PO Last administered on 10/18/17 08:21; Start 10/17/17 at 09:00 Cyclosporine (Restasis) 1 drop BID OU Last administered on 10/18/17 08:21; Start 10/17/17 at 09:00 Folic Acid (Folic Acid) 1 mg TID PO Last administered on 10/18/17 08:21; Start 10/16/17 at 22:00 Gabapentin (Neurontin) 200 mg QHS PO Last administered on 10/17/17 20:22; Start 10/16/17 at 22:00 Acetaminophen/ Hydrocodone Bitart (Lortab 5/325) 1 tab Q6HRS PRN PO MODERATE - SEVERE PAIN Last administered on 10/17/17 21:31; Start 10/16/17 at 21:30 Latanoprost (Xalatan) 1 drop HS OU Last administered on 10/17/17 20:22; Start 10/16/17 at 22:00 Metoprolol Succinate (Toprol Xl) 25 mg DAILY PO Last administered on 08:22; Start 10/17/17 at 09:00 Metoprolol Succinate (Toprol Xl) 25 mg DAILY PO ; Start 10/17/17 at 09:00; Status UNV Tramadol HCl (Ultram) 50 mg Q4H PRN PO MILD PAIN; Start 10/16/17 at 21:30 Calcium/Vitamin D (Oscal D 500mg/ 200uts) 1 tab BIDWMEALS PO Last administered on 10/18/17 08:21; Start 10/17/17 at 08:00 Multivitamins (Thera M Plus) 1 tab DAILY PO Last administered on 10/18/17 08: 21; Start 10/17/17 at 09:00 Hydroxyzine HCl (Atarax) 10 mg PRN Q6HRS PRN PO ITCHING; Start 10/16/17 at 21: 30 Ondansetron HCl (Zofran Odt) 4 mg PRN Q6HRS PRN PO NAUSEA/VOMITING; Start at 21:30 Paroxetine HCl (Paxil) 20 mg DAILY PO Last administered on 10/18/17 08:21; Start 10/17/17 at 09:00 Psyllium Hydrophilic Mucilloid (Metamucil Fiber Packet) 1 pkt DAILY PO Last administered on 10/18/17 08:21; Start 10/17/17 at 09:00 Diltiazem HCl (Cardizem 24hr Cd) 240 mg DAILY PO Last administered on 08:22; Start 10/17/17 at 09:00 Magnesium Sulfate/ Dextrose 50 ml @ 25 mls/hr 1X ONCE IV Last administered on 10/17/17 12:05; Start 10/17/17 at 11:45; Stop 10/17/17 at 13:44; Status DC Amino Acids/ Glycerin/ Electrolytes 1,000 ml @ 80 mls/hr [id number] IV Last administered on 10/18/17 11:09; Start 10/17/17 at 11:45 Dronabinol (Marinol) 2.5 mg BIDACLD PO Last administered on 10/18/17 11:08; Start 10/17/17 at 16:30 Pantoprazole Sodium (Protonix) 40 mg BIDAC PO Last administered on 10/18/17 08:21; Start 10/17/17 at 16:30 Iohexol (Omnipaque 300 Mg/ml) 75 ml 1X ONCE IV ; Start 10/18/17 at 11:00; Stop 10/18/17 at 11:01; Status DC Iohexol (Omnipaque 240 Mg/ml) 50 ml 1X ONCE PO ; Start 10/18/17 at 11:00; Stop 10/18/17 at 11:01; Status DC Info (Do NOT chart on this entry -- for MONITORING) 1 each PRN DAILY PRN MC SEE COMMENTS; Start 10/18/17 at 11:00; Stop 10/20/17 at 10:59 Amylase/Lipase/ Protease (Zenpep 10,000) 2 cap TIDWMEALS PO ; Start 10/18/17 at 12:00 Active Scripts Active Reported Triamcinolone Acetonide 0.1% Oint (Triamcinolone Acetonide) 15 Gm Oint...g. 1 Tali TP BID MIX WITH EUCERIN DIRECTED BY PHYSICIAN Tramadol Hcl 50 Mg Tablet 50 Mg PO Q4H PRN Tizanidine Hcl 4 Mg Capsule 8 Mg PO HS Tizanidine Hcl 2 Mg Capsule 2 Mg PO BID Spironolactone 25 Mg Tablet 25 Mg PO DAILY Metamucil Powder (Psyllium Seed (with Sugar)) 575 Gm Powder 575 Gm PO One Daily (Multivitamin) 1 Each Tablet 1 Each PO DAILY Toprol Xl (Metoprolol Succinate) 25 Mg Tab.er.24h 25 Mg PO DAILY Latanoprost 2.5 Ml Drops 1 Drop OP HS Hydroxyzine Hcl 25 Mg Tablet 25 Mg PO Hydroxychloroquine Sulfate 200 Mg Tablet 200 Mg PO BID Folic Acid 1 Mg Tablet 1 Mg PO TID Restasis (Cyclosporine) 1 Each Droperette 1 Drop EACHEYE BID Vitamin D3 (Cholecalciferol (Vitamin D3)) 5,000 Unit Tablet 5,000 Unit PO DAILY [facility] Calcium Citrate + D Tab (Ca Citrate/Mgox/Vit D3/B6/Min) 1 Each Tablet 1 Each PO BID [facility] Calcium Citrate + D Tab (Ca Citrate/Mgox/Vit D3/B6/Min) 1 Each Tablet 1 Each PO Lorcet 5-325 mg Tablet (Hydrocodone/Acetaminophen) 1 Each Tablet Leflunomide 20 Mg Tablet Metoprolol Succinate ( Xl ) (Metoprolol Succinate) 25 Mg Tab.er.24h Paroxetine Hcl 40 Mg Tablet Ondansetron Hcl 8 Mg Tablet Gabapentin 100 Mg Capsule Bupropion Hcl Sr (Bupropion Hcl) 100 Mg Tablet.er Clopidogrel (Clopidogrel Bisulfate) 75 Mg Tablet Furosemide 20 Mg Tablet 10 Mg PO DAILY Tiazac (Diltiazem Hcl) 120 Mg Capsule.er 240 Mg PO Evoxac (Cevimeline Hcl) 30 Mg Capsule 30 Mg PO Acetaminophen 500 Mg Tablet 1 Tab PO BID Vitals/I & O Vital Sign - Last 24 Hours 10/17/17 10/17/17 10/17/17 10/17/17 14:37 19:52 20:00 21:31 Temp 98.5 97.3 98.5 97.3 Pulse 93 91 Resp 17 16 B/P (MAP) 150/72 (98) 158/82 (107) Pulse Ox 96 91 O2 Delivery Room Air Room Air Room Air Room Air 10/17/17 10/17/17 10/18/17 10/18/17 22:46 23:55 03:02 07:17 Temp 98.8 98.1 97.9 98.8 98.1 97.9 Pulse 88 72 105 Resp 16 16 16 B/P (MAP) 139/61 (87) 149/72 (97) 149/83 (105) Pulse Ox 90 90 90 O2 Delivery Room Air Room Air Room Air Room Air 10/18/17 10/18/17 10/18/17 10/18/17 07:18 08:22 08:22 11:42 Temp 97.4 97.4 Pulse 105 105 102 Resp 17 B/P (MAP) 149/83 149/83 129/75 (93) Pulse Ox 94 O2 Delivery Room Air Room Air Intake and Output 10/17/17 10/17/17 10/18/17 15:00 23:00 07:00 Intake Total 970 ml 1800 ml 160 ml Output Total 300 ml 700 ml 1600 ml Balance 670 ml 1100 ml -1440 ml Nutrition Consultation Dietary Evaluation: Recommendations by RD: Increase Calorie Intake, Protein supplementation Comments: boost plus, boost pudding, magic cup w/ meals Expected Outcomes/Goals: to meet > 75% est nutr needs Malnutrition Findings: Body Fat Depletion (Non Severe: Mod to Severe Weight Status: Underweight NITHYA ZAMUDIO MD Oct 18, 2017 13:57
[2017-10-18 15:32] VITALS: BP 143/75
[2017-10-18] MEDS: HYDROcodone/APAP 5/325MG 1 TAB TABLET PO PRN (17:06)
[2017-10-18 18:13] LABS: HAPTOGLOBIN 477 mg/dL (34-200)
[2017-10-18 19:00] VITALS: BP 129/63
[2017-10-18] MEDS: LATANOPROST 0.005% OPHTH SOLUTION 2.5ML BOTTLE. OU SCH (21:07)
[2017-10-18] MEDS: GABAPENTIN 100 MG CAPSULE. PO SCH (21:07)
[2017-10-18 23:00] VITALS: BP 151/82
[2017-10-19 03:00] VITALS: BP 129/64
[2017-10-19 05:44] LABS: CALCIUM 8.4 mg/dL (8.5-10.1); CREATININE 0.9 mg/dL (0.6-1.0); GFR 61.2; POTASSIUM 4.7 mmol/L (3.5-5.1)
[2017-10-19 07:00] VITALS: BP 157/80
[2017-10-19 07:57] LABS: BASO # 0.1 x10^3/uL (0.0-0.2); BASO % 1 % (0-3); EOS % 1 % (0-3); HEMOGLOBIN 8.5 g/dL (12.0-15.5); LYMPH # 1.1 x10^3/uL (1.0-4.8); LYMPH % 12 % (24-48); MEAN CORPUSCULAR HEMOGLOBIN 30 pg (25-35); MEAN CORPUSCULAR HGB CONC 33 g/dL (31-37); MEAN CORPUSCULAR VOLUME 92 fL (79-100); MONO % 8 % (0-9); NEUT % 78 % (31-73); PLATELET COUNT 624 x10^3/uL (140-400); RED BLOOD COUNT 2.82 x10^6/uL (3.50-5.40); RED CELL DISTRIBUTION WIDTH 14.4 % (11.5-14.5); WHITE BLOOD COUNT 9.2 x10^3/uL (4.0-11.0)
--- NOTE | 2017-10-19 08:32 | PDOC ---
Nutrition Consultation Dietary Evaluation: Recommendations by RD: Increase Calorie Intake, Protein supplementation Comments: boost plus, boost pudding, magic cup w/ meals Expected Outcomes/Goals: to meet > 75% est nutr needs Malnutrition Findings: Body Fat Depletion (Non Severe: Mod to Severe Weight Status: Underweight GENERAL General: Trying to eat well , having eaten 50% of breakfast this morning. CT done yest afternoon, not read yet. Problems: VITAL SIGNS Vital Signs: Vital Signs Date Time Temp Pulse Resp B/P (MAP) Pulse Ox O2 Delivery O2 Flow Rate FiO2 10/19/17 03:00 97.5 69 18 129/64 (85) 95 Room Air 97.5 Phys exam: aao x 3, cooperative EOMI, MMM no cervical LAD, no jvd lungs CTA rrr, no m/r/g non distended abdomen with mild tenderness midepigastrium cachectic with muscle wasting, no edema I & O I & O Intake and Output 10/19/17 07:00 Intake Total 560 ml Output Total 4900 ml Balance -4340 ml Intake Oral 560 ml Output Urine Total 4900 ml ALLERGIES Allergies: Allergies Coded Allergies Type Severity Reaction Last Updated Verified Sulfa (Sulfonamide Antibiotics) Allergy Intermediate 08/29/14 Yes methotrexate Allergy Intermediate 10/16/17 Yes MEDS Medications: Current Medications Medications (Trade) Dose Ordered Sig/Kayla Start Time Stop Time Status Last Admin Dose Admin Acetaminophen (Tylenol) 500 mg BID 10/16/17 22:00 10/18/17 21:24 500 MG Acetaminophen/ Hydrocodone Bitart (Lortab 5/325) 1 tab Q6HRS PRN 10/16/17 21:30 10/18/17 17:06 1 TAB Amino Acids/ Glycerin/ Electrolytes 1,000 ml @ 80 mls/hr [id number] 10/17/17 11:45 10/18/17 23:49 80 MLS/HR Amylase/Lipase/ Protease (Zenpep 10,000) 2 cap TIDWMEALS 10/18/17 12:00 10/18/17 17:05 2 CAP Bupropion HCl (Wellbutrin Sr) 100 mg DAILY 10/17/17 09:00 10/18/17 08:21 100 MG Calcium Carbonate/ Glycine (Tums) 500 mg PRN Q3HRS PRN 10/16/17 20:45 Calcium/Vitamin D (Oscal D 500mg/ 200uts) 1 tab BIDWMEALS 10/17/17 08:00 10/18/17 17:05 1 TAB Clopidogrel Bisulfate (Plavix) 75 mg DAILY 10/17/17 09:00 10/18/17 08:21 75 MG Cyclosporine (Restasis) 1 drop BID 10/17/17 09:00 10/18/17 21:06 1 DROP Diltiazem HCl (Cardizem 24hr Cd) 240 mg DAILY 10/17/17 09:00 10/18/17 08:22 240 MG Dronabinol (Marinol) 2.5 mg BIDACLD 10/17/17 16:30 10/18/17 17:05 2.5 MG Folic Acid (Folic Acid) 1 mg TID 10/16/17 22:00 10/18/17 21:07 1 MG Gabapentin (Neurontin) 200 mg QHS 10/16/17 22:00 10/18/17 21:07 200 MG Heparin Sodium (Porcine) (Heparin Sq) 5,000 unit Q12HR 10/17/17 09:00 10/18/17 21:13 5,000 UNIT Hydroxyzine HCl (Atarax) 10 mg PRN Q6HRS PRN 10/16/17 21:30 Info (Do NOT chart on this entry -- for MONITORING) 1 each PRN DAILY PRN 10/18/17 16:45 10/20/17 16:44 Iohexol (Omnipaque 240 Mg/ml) 50 ml 1X ONCE 10/18/17 16:45 10/18/17 16:46 DC 10/18/17 16:43 50 ML Iohexol (Omnipaque 300 Mg/ml) 60 ml 1X ONCE 10/18/17 16:45 10/18/17 16:46 DC 10/18/17 16:43 60 ML Latanoprost (Xalatan) 1 drop HS 10/16/17 22:00 10/18/17 21:07 1 DROP Magnesium Sulfate/ Dextrose 50 ml @ 25 mls/hr 1X ONCE 10/17/17 11:45 10/17/17 13:44 DC 10/17/17 12:05 25 MLS/HR Metoprolol Succinate (Toprol Xl) 25 mg DAILY 10/17/17 09:00 UNV Multivitamins (Thera M Plus) 1 tab DAILY 10/17/17 09:00 10/18/17 08:21 1 TAB Ondansetron HCl (Zofran Odt) 4 mg PRN Q6HRS PRN 10/16/17 21:30 Pantoprazole Sodium (Protonix) 40 mg BIDAC 10/17/17 16:30 10/18/17 17:05 40 MG Paroxetine HCl (Paxil) 20 mg DAILY 10/17/17 09:00 10/18/17 08:21 20 MG Prochlorperazine Edisylate (Compazine) 10 mg PRN Q6HRS PRN 10/16/17 20:45 Psyllium Hydrophilic Mucilloid (Metamucil Fiber Packet) 1 pkt DAILY 10/17/17 09:00 10/18/17 08:21 1 PKT Sodium Chloride 1,000 ml @ 100 mls/hr Q10H 10/16/17 20:36 10/17/17 06:35 DC 10/16/17 22:03 100 MLS/HR Tramadol HCl (Ultram) 50 mg Q4H PRN 10/16/17 21:30 Decadron 40mg PO to start this morning LAB Lab: Laboratory Tests Test 10/18/17 10:15 10/19/17 05:00 10/19/17 07:20 White Blood Count 10.4 x10^3/uL (4.0-11.0) 9.2 x10^3/uL (4.0-11.0) Red Blood Count 3.22 x10^6/uL (3.50-5.40) 2.82 x10^6/uL (3.50-5.40) Hemoglobin 9.6 g/dL (12.0-15.5) 8.5 g/dL (12.0-15.5) Hematocrit 29.6 % (36.0-47.0) 26.0 % (36.0-47.0) Mean Corpuscular Volume 92 fL (79-100) 92 fL (79-100) Mean Corpuscular Hemoglobin 30 pg (25-35) 30 pg (25-35) Mean Corpuscular Hemoglobin Concent 32 g/dL (31-37) 33 g/dL (31-37) Red Cell Distribution Width 14.7 % (11.5-14.5) 14.4 % (11.5-14.5) Platelet Count 681 x10^3/uL (140-400) 624 x10^3/uL (140-400) Neutrophils (%) (Auto) 83 % (31-73) 78 % (31-73) Lymphocytes (%) (Auto) 9 % (24-48) 12 % (24-48) Monocytes (%) (Auto) 7 % (0-9) 8 % (0-9) Eosinophils (%) (Auto) 0 % (0-3) 1 % (0-3) Basophils (%) (Auto) 1 % (0-3) 1 % (0-3) Neutrophils # (Auto) 8.6 x10^3uL (1.8-7.7) 7.2 x10^3uL (1.8-7.7) Lymphocytes # (Auto) 0.9 x10^3/uL (1.0-4.8) 1.1 x10^3/uL (1.0-4.8) Monocytes # (Auto) 0.7 x10^3/uL (0.0-1.1) 0.7 x10^3/uL (0.0-1.1) Eosinophils # (Auto) 0.0 x10^3/uL (0.0-0.7) 0.1 x10^3/uL (0.0-0.7) Basophils # (Auto) 0.1 x10^3/uL (0.0-0.2) 0.1 x10^3/uL (0.0-0.2) Reticulocyte Count (auto) 3.0 % (0.5-2.5) Haptoglobin 477 mg/dL (34-200) Fibrinogen 686 mg/dL (200-440) Sodium Level 131 mmol/L (136-145) 132 mmol/L (136-145) Potassium Level 4.8 mmol/L (3.5-5.1) 4.7 mmol/L (3.5-5.1) Chloride Level 94 mmol/L (98-107) 97 mmol/L (98-107) Carbon Dioxide Level 24 mmol/L (21-32) 23 mmol/L (21-32) Anion Gap 13 (6-14) 12 (6-14) Blood Urea Nitrogen 30 mg/dL (7-20) 33 mg/dL (7-20) Creatinine 1.1 mg/dL (0.6-1.0) 0.9 mg/dL (0.6-1.0) Estimated GFR (Cockcroft-Gault) 48.6 61.2 Glucose Level 92 mg/dL (70-99) 115 mg/dL (70-99) Calcium Level 9.4 mg/dL (8.5-10.1) 8.4 mg/dL (8.5-10.1) Magnesium Level 2.0 mg/dL (1.8-2.4) Lactate Dehydrogenase 234 U/L (81-234) Prealbumin 29.5 mg/dL (16.0-42.0) CA 19-9 pending IMAGING Imaging: CT ab/pel not read yet, but multiloculated mass involving body and tail of pancreas with enlargement of panc head is worrisome. No liver lesions seen on my read. ASSESSMENT & PLAN A&P 72 yo F w/ FTT symptoms, malnourishment, underlying CLL, known panc mass for many years. If she wants to pursue further eval for panc lesion, then that could be the culprit for all of her major symptoms. Repeat EUS/ERCP could be considered. CA 19-9 is also pending. She would not be a candidate for a major surgery like a Whipple or distal pancreatectomy now due to severe malnourishment. Try decadron 40mg PO daily x 4 days for both autoimmune disorders and appetite stimulation, as well as pain relief. Goals of care need to be decided between her and her family. MARCEL MANJARREZ MD Oct 19, 2017 08:32
[2017-10-19 08:36] LABS: NEG OBC FOB NEG; POS OBC FOB POS
[2017-10-19] MEDS: buPROPion SR 100 MG TABLET.SA. PO SCH (09:22)
[2017-10-19] MEDS: LIPASE/PROTEAS/AMYLAS 10/34/55 CAPSULE.DR. PO SCH ×3 (09:22→16:52)
[2017-10-19] MEDS: METOPROLOL SUCC 24HR ER 25 MG TAB.ER.24H. PO SCH (09:22)
[2017-10-19] MEDS: CALCIUM CARB/VIT D3 500/200 TABLET. PO SCH ×2 (09:23→16:51)
[2017-10-19] MEDS: MULTIVITAMIN with MINERAL TABLET. PO SCH (09:23)
[2017-10-19] MEDS: ACETAMINOPHEN 500 MG TABLET PO SCH ×2 (09:23→21:00)
[2017-10-19] MEDS: PARoxetine 20 MG TABLET PO SCH (09:23)
[2017-10-19] MEDS: PANTOPRAZOLE 40 MG TABLET.DR. PO SCH ×2 (09:24→16:51)
[2017-10-19] MEDS: CLOPIDOGREL BISULFATE 75 MG TABLET PO SCH (09:24)
[2017-10-19] MEDS: FOLIC ACID 1 MG TABLET. PO SCH ×3 (09:24→21:00)
[2017-10-19] MEDS: DRONABINOL 2.5 MG CAPSULE. PO SCH ×2 (09:25→16:51)
[2017-10-19] MEDS: cycloSPORINE 0.05% OPTH 1 DROP DROPERETTE OU SCH ×2 (09:26→21:01)
[2017-10-19] MEDS: DEXAMETHASONE 4 MG TABLET PO SCH (09:26)
[2017-10-19] MEDS: PSYLLIUM HUSK (SUGAR FREE) 1 PKT PACKET PO SCH (09:27)
[2017-10-19] MEDS: HEPARIN PF for SUB-Q USE 5,000 UNIT/0.5 ML VIAL. SQ SCH ×2 (09:32→21:07)
[2017-10-19] MEDS: AMINO AC 3%/ELECTROLYTE/GLYCER 1,000 ML IV SCH ×2 (09:38→22:30)
--- NOTE | 2017-10-19 10:50 | RAD ---
CT abdomen and pelvis with contrast 10/18/2017 Clinical indication: Weight loss, pancreatic mass, nausea and early satiety. Comparison: MR abdomen 08/29/2014 Technique: Multiple CT images of the abdomen and pelvis were obtained following the intravenous menstruation of 60 mL Omnipaque 300. PQRS Compliance Statement: One or more of the following individualized dose reduction techniques were utilized for this examination: 1. Automated exposure control 2. Adjustment of the mA and/or kV according to patient size 3. Use of iterative reconstruction technique Findings: Heart size is normal. Visualized lung bases are clear. Liver is normal in size and morphology. There is a stable small 0.9 cm hepatic segment 2 cyst. Gallbladder is unremarkable apart from a prominent phrygian cap. Spleen, adrenal glands and kidneys are unremarkable apart from a small inferior pole left renal cyst. No intra or extrahepatic biliary ductal dilatation. There is a complex multiloculated cystic mass in the pancreatic tail with internal septations and concern for internal nodularity measuring 1.9 x 1.2 cm series 2/image 21. A portion of this mass could represent a focally dilated main pancreatic duct, though indeterminate. There is dilatation of the main pancreatic duct at the tail measuring 0.6 cm with tapering to normal caliber upstream in the body. There are 2 punctate calcifications of the pancreatic head, may represent sequela of prior pancreatitis Abdominal aorta is tortuous and normal in caliber with heavy aortoiliac calcified atheromatous disease. Prior left common iliac stenting. Major portal, splenic and visualized upper mesenteric veins are patent. Small and large bowel loops are normal in caliber without obstruction. No abdominal free fluid. No retroperitoneal or mesenteric lymphadenopathy. Mildly distended and unopacified urinary bladder is unremarkable. Uterus is present with 1.3 cm calcific density, likely calcified fibroid. No pelvic free fluid. No iliac or inguinal lymphadenopathy. There is severe left convexity lumbar scoliosis and multilevel disc degeneration greatest to severe degree at L3-L4 and L5-S1. Impression: Multiloculated pancreatic tail cystic mass with concern for internal septations and nodularity, in association with downstream main pancreatic ductal dilatation. Differential considerations include mucinous cystic neoplasm, main duct IPMN, mixed side-branch/ main duct IPMN, or pancreatic adenocarcinoma cannot be excluded. MRI abdomen pancreas protocol is recommended.
[2017-10-19 11:00] VITALS: BP 136/82
--- NOTE | 2017-10-19 13:46 | PDOC ---
PROGRESS NOTES Chief Complaint Chief Complaint Weakness, FTT 1. FTT: weight loss and weakness, BMI 16 eating a little more here. no vomiting. 2. Anorexia: unclear etiology. med related vs mesenteric ischemia vs GI malignancy Onc consult has started decadron she has seen Dr. Lou at [facility], he had reported (per Patient)_ that the pancreatic mass had been not changing over time 3. CHEIKH: vasomotor improving with IVF 4. 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 Hypomagnesemia and hyponatremia: replete IV 6. Anemia: anemia labs pending. transfuse PRBC x1 yesterday 7. Prophylaxis: PPI, lovenox History of Present Illness History of Present Illness feels a little better. no focal c/o feels "a little wired" from the large decadron dose Vitals Vitals Vital Signs Date Time Temp Pulse Resp B/P (MAP) Pulse Ox O2 Delivery O2 Flow Rate FiO2 10/19/17 11:00 97.6 86 20 136/82 (100) 95 Room Air 97.6 Physical Exam Physical Exam cachectic General: Alert, Oriented X3, Cooperative, No acute distress Heart: Regular rate, Normal S1, Normal S2, No murmurs, Gallops Lungs: Clear Abdomen: Normal bowel sounds, Soft, No tenderness, No hepatosplenomegaly, No masses Extremities: No clubbing, No cyanosis, No edema, Normal pulses, No tenderness/ swelling Skin: Other (plaques on B elbows) Labs LABS Laboratory Tests Test 10/19/17 05:00 10/19/17 07:20 10/19/17 07:55 Sodium Level 132 mmol/L (136-145) Potassium Level 4.7 mmol/L (3.5-5.1) Chloride Level 97 mmol/L (98-107) Carbon Dioxide Level 23 mmol/L (21-32) Anion Gap 12 (6-14) Blood Urea Nitrogen 33 mg/dL (7-20) Creatinine 0.9 mg/dL (0.6-1.0) Estimated GFR (Cockcroft-Gault) 61.2 Glucose Level 115 mg/dL (70-99) Calcium Level 8.4 mg/dL (8.5-10.1) White Blood Count 9.2 x10^3/uL (4.0-11.0) Red Blood Count 2.82 x10^6/uL (3.50-5.40) Hemoglobin 8.5 g/dL (12.0-15.5) Hematocrit 26.0 % (36.0-47.0) Mean Corpuscular Volume 92 fL (79-100) Mean Corpuscular Hemoglobin 30 pg (25-35) Mean Corpuscular Hemoglobin Concent 33 g/dL (31-37) Red Cell Distribution Width 14.4 % (11.5-14.5) Platelet Count 624 x10^3/uL (140-400) Neutrophils (%) (Auto) 78 % (31-73) Lymphocytes (%) (Auto) 12 % (24-48) Monocytes (%) (Auto) 8 % (0-9) Eosinophils (%) (Auto) 1 % (0-3) Basophils (%) (Auto) 1 % (0-3) Neutrophils # (Auto) 7.2 x10^3uL (1.8-7.7) Lymphocytes # (Auto) 1.1 x10^3/uL (1.0-4.8) Monocytes # (Auto) 0.7 x10^3/uL (0.0-1.1) Eosinophils # (Auto) 0.1 x10^3/uL (0.0-0.7) Basophils # (Auto) 0.1 x10^3/uL (0.0-0.2) Stool Occult Blood Negative (NEG) Review of Systems Review of Systems no nv.d str better appetite better Assessment and Plan Assessmemt and Plan plan f/u at [facility], call Dr. Lou office in AM, cont current Problems: Comment Review of Relevant I have reviewed the following items sawyer (where applicable) has been applied. Labs Laboratory Tests Test 10/17/17 16:10 10/18/17 10:15 10/19/17 05:00 10/19/17 07:20 Cortisol PM Sample 15.6 ug/dL (3.1-16.7) White Blood Count 10.4 x10^3/uL (4.0-11.0) 9.2 x10^3/uL (4.0-11.0) Red Blood Count 3.22 x10^6/uL (3.50-5.40) 2.82 x10^6/uL (3.50-5.40) Hemoglobin 9.6 g/dL (12.0-15.5) 8.5 g/dL (12.0-15.5) Hematocrit 29.6 % (36.0-47.0) 26.0 % (36.0-47.0) Mean Corpuscular Volume 92 fL (79-100) 92 fL (79-100) Mean Corpuscular Hemoglobin 30 pg (25-35) 30 pg (25-35) Mean Corpuscular Hemoglobin Concent 32 g/dL (31-37) 33 g/dL (31-37) Red Cell Distribution Width 14.7 % (11.5-14.5) 14.4 % (11.5-14.5) Platelet Count 681 x10^3/uL (140-400) 624 x10^3/uL (140-400) Neutrophils (%) (Auto) 83 % (31-73) 78 % (31-73) Lymphocytes (%) (Auto) 9 % (24-48) 12 % (24-48) Monocytes (%) (Auto) 7 % (0-9) 8 % (0-9) Eosinophils (%) (Auto) 0 % (0-3) 1 % (0-3) Basophils (%) (Auto) 1 % (0-3) 1 % (0-3) Neutrophils # (Auto) 8.6 x10^3uL (1.8-7.7) 7.2 x10^3uL (1.8-7.7) Lymphocytes # (Auto) 0.9 x10^3/uL (1.0-4.8) 1.1 x10^3/uL (1.0-4.8) Monocytes # (Auto) 0.7 x10^3/uL (0.0-1.1) 0.7 x10^3/uL (0.0-1.1) Eosinophils # (Auto) 0.0 x10^3/uL (0.0-0.7) 0.1 x10^3/uL (0.0-0.7) Basophils # (Auto) 0.1 x10^3/uL (0.0-0.2) 0.1 x10^3/uL (0.0-0.2) Reticulocyte Count (auto) 3.0 % (0.5-2.5) Haptoglobin 477 mg/dL (34-200) Fibrinogen 686 mg/dL (200-440) Sodium Level 131 mmol/L (136-145) 132 mmol/L (136-145) Potassium Level 4.8 mmol/L (3.5-5.1) 4.7 mmol/L (3.5-5.1) Chloride Level 94 mmol/L (98-107) 97 mmol/L (98-107) Carbon Dioxide Level 24 mmol/L (21-32) 23 mmol/L (21-32) Anion Gap 13 (6-14) 12 (6-14) Blood Urea Nitrogen 30 mg/dL (7-20) 33 mg/dL (7-20) Creatinine 1.1 mg/dL (0.6-1.0) 0.9 mg/dL (0.6-1.0) Estimated GFR (Cockcroft-Gault) 48.6 61.2 Glucose Level 92 mg/dL (70-99) 115 mg/dL (70-99) Calcium Level 9.4 mg/dL (8.5-10.1) 8.4 mg/dL (8.5-10.1) Magnesium Level 2.0 mg/dL (1.8-2.4) Lactate Dehydrogenase 234 U/L (81-234) Prealbumin 29.5 mg/dL (16.0-42.0) Test 10/19/17 07:55 Stool Occult Blood Negative (NEG) Laboratory Tests Test 10/19/17 05:00 10/19/17 07:20 10/19/17 07:55 Sodium Level 132 mmol/L (136-145) Potassium Level 4.7 mmol/L (3.5-5.1) Chloride Level 97 mmol/L (98-107) Carbon Dioxide Level 23 mmol/L (21-32) Anion Gap 12 (6-14) Blood Urea Nitrogen 33 mg/dL (7-20) Creatinine 0.9 mg/dL (0.6-1.0) Estimated GFR (Cockcroft-Gault) 61.2 Glucose Level 115 mg/dL (70-99) Calcium Level 8.4 mg/dL (8.5-10.1) White Blood Count 9.2 x10^3/uL (4.0-11.0) Red Blood Count 2.82 x10^6/uL (3.50-5.40) Hemoglobin 8.5 g/dL (12.0-15.5) Hematocrit 26.0 % (36.0-47.0) Mean Corpuscular Volume 92 fL (79-100) Mean Corpuscular Hemoglobin 30 pg (25-35) Mean Corpuscular Hemoglobin Concent 33 g/dL (31-37) Red Cell Distribution Width 14.4 % (11.5-14.5) Platelet Count 624 x10^3/uL (140-400) Neutrophils (%) (Auto) 78 % (31-73) Lymphocytes (%) (Auto) 12 % (24-48) Monocytes (%) (Auto) 8 % (0-9) Eosinophils (%) (Auto) 1 % (0-3) Basophils (%) (Auto) 1 % (0-3) Neutrophils # (Auto) 7.2 x10^3uL (1.8-7.7) Lymphocytes # (Auto) 1.1 x10^3/uL (1.0-4.8) Monocytes # (Auto) 0.7 x10^3/uL (0.0-1.1) Eosinophils # (Auto) 0.1 x10^3/uL (0.0-0.7) Basophils # (Auto) 0.1 x10^3/uL (0.0-0.2) Stool Occult Blood Negative (NEG) Medications Current Medications Sodium Chloride 1,000 ml @ 100 mls/hr Q10H IV Last administered on 10/16/17 22:03; Start 10/16/17 at 20:36; Stop 10/17/17 at 06:35; Status DC Prochlorperazine Edisylate (Compazine) 10 mg PRN Q6HRS PRN IV NAUSEA/VOMITING; Start 10/16/17 at 20:45 Calcium Carbonate/ Glycine (Tums) 500 mg PRN Q3HRS PRN PO UPSET STOMACH; Start 10/16/17 at 20:45 Heparin Sodium (Porcine) (Heparin Sq) 5,000 unit Q12HR SQ Last administered on 10/19/17 09:32; Start 10/17/17 at 09:00 Acetaminophen (Tylenol) 500 mg BID PO Last administered on 10/19/17 09:23; Start 10/16/17 at 22:00 Bupropion HCl (Wellbutrin Sr) 100 mg DAILY PO Last administered on 10/19/17 09:22; Start 10/17/17 at 09:00 Clopidogrel Bisulfate (Plavix) 75 mg DAILY PO Last administered on 10/19/17 09:24; Start 10/17/17 at 09:00 Cyclosporine (Restasis) 1 drop BID OU Last administered on 10/19/17 09:26; Start 10/17/17 at 09:00 Folic Acid (Folic Acid) 1 mg TID PO Last administered on 10/19/17 12:19; Start 10/16/17 at 22:00 Gabapentin (Neurontin) 200 mg QHS PO Last administered on 10/18/17 21:07; Start 10/16/17 at 22:00 Acetaminophen/ Hydrocodone Bitart (Lortab 5/325) 1 tab Q6HRS PRN PO MODERATE - SEVERE PAIN Last administered on 10/18/17 17:06; Start 10/16/17 at 21:30 Latanoprost (Xalatan) 1 drop HS OU Last administered on 10/18/17 21:07; Start 10/16/17 at 22:00 Metoprolol Succinate (Toprol Xl) 25 mg DAILY PO Last administered on 09:22; Start 10/17/17 at 09:00 Metoprolol Succinate (Toprol Xl) 25 mg DAILY PO ; Start 10/17/17 at 09:00; Status UNV Tramadol HCl (Ultram) 50 mg Q4H PRN PO MILD PAIN; Start 10/16/17 at 21:30 Calcium/Vitamin D (Oscal D 500mg/ 200uts) 1 tab BIDWMEALS PO Last administered on 10/19/17 09:23; Start 10/17/17 at 08:00 Multivitamins (Thera M Plus) 1 tab DAILY PO Last administered on 10/19/17 09: 23; Start 10/17/17 at 09:00 Hydroxyzine HCl (Atarax) 10 mg PRN Q6HRS PRN PO ITCHING; Start 10/16/17 at 21: 30 Ondansetron HCl (Zofran Odt) 4 mg PRN Q6HRS PRN PO NAUSEA/VOMITING; Start at 21:30 Paroxetine HCl (Paxil) 20 mg DAILY PO Last administered on 10/19/17 09:23; Start 10/17/17 at 09:00 Psyllium Hydrophilic Mucilloid (Metamucil Fiber Packet) 1 pkt DAILY PO Last administered on 10/19/17 09:27; Start 10/17/17 at 09:00 Diltiazem HCl (Cardizem 24hr Cd) 240 mg DAILY PO Last administered on 09:25; Start 10/17/17 at 09:00 Magnesium Sulfate/ Dextrose 50 ml @ 25 mls/hr 1X ONCE IV Last administered on 10/17/17 12:05; Start 10/17/17 at 11:45; Stop 10/17/17 at 13:44; Status DC Amino Acids/ Glycerin/ Electrolytes 1,000 ml @ 80 mls/hr [id number] IV Last administered on 10/19/17 09:38; Start 10/17/17 at 11:45 Dronabinol (Marinol) 2.5 mg BIDACLD PO Last administered on 10/19/17 09:25; Start 10/17/17 at 16:30 Pantoprazole Sodium (Protonix) 40 mg BIDAC PO Last administered on 10/19/17 09:24; Start 10/17/17 at 16:30 Iohexol (Omnipaque 300 Mg/ml) 75 ml 1X ONCE IV ; Start 10/18/17 at 11:00; Stop 10/18/17 at 11:01; Status DC Iohexol (Omnipaque 240 Mg/ml) 50 ml 1X ONCE PO ; Start 10/18/17 at 11:00; Stop 10/18/17 at 11:01; Status DC Info (Do NOT chart on this entry -- for MONITORING) 1 each PRN DAILY PRN MC SEE COMMENTS; Start 10/18/17 at 11:00; Stop 10/20/17 at 10:59 Amylase/Lipase/ Protease (Zenpep 10,000) 2 cap TIDWMEALS PO Last administered on 10/19/17 12:19; Start 10/18/17 at 12:00 Iohexol (Omnipaque 300 Mg/ml) 60 ml 1X ONCE IV Last administered on 16:43; Start 10/18/17 at 16:45; Stop 10/18/17 at 16:46; Status DC Iohexol (Omnipaque 240 Mg/ml) 50 ml 1X ONCE PO Last administered on 16:43; Start 10/18/17 at 16:45; Stop 10/18/17 at 16:46; Status DC Iohexol (Omnipaque 240 Mg/ml) 50 ml 1X ONCE PO Last administered on 16:43; Start 10/18/17 at 16:45; Stop 10/18/17 at 16:46; Status DC Info (Do NOT chart on this entry -- for MONITORING) 1 each PRN DAILY PRN MC SEE COMMENTS; Start 10/18/17 at 16:45; Stop 10/20/17 at 16:44 Dexamethasone (Decadron) 40 mg DAILY PO Last administered on 10/19/17 09:26; Start 10/19/17 at 09:00; Stop 10/23/17 at 07:00 Active Scripts Active Reported Triamcinolone Acetonide 0.1% Oint (Triamcinolone Acetonide) 15 Gm Oint...g. 1 Tali TP BID MIX WITH EUCERIN DIRECTED BY PHYSICIAN Tramadol Hcl 50 Mg Tablet 50 Mg PO Q4H PRN Tizanidine Hcl 4 Mg Capsule 8 Mg PO HS Tizanidine Hcl 2 Mg Capsule 2 Mg PO BID Spironolactone 25 Mg Tablet 25 Mg PO DAILY Metamucil Powder (Psyllium Seed (with Sugar)) 575 Gm Powder 575 Gm PO One Daily (Multivitamin) 1 Each Tablet 1 Each PO DAILY Toprol Xl (Metoprolol Succinate) 25 Mg Tab.er.24h 25 Mg PO DAILY Latanoprost 2.5 Ml Drops 1 Drop OP HS Hydroxyzine Hcl 25 Mg Tablet 25 Mg PO Hydroxychloroquine Sulfate 200 Mg Tablet 200 Mg PO BID Folic Acid 1 Mg Tablet 1 Mg PO TID Restasis (Cyclosporine) 1 Each Droperette 1 Drop EACHEYE BID Vitamin D3 (Cholecalciferol (Vitamin D3)) 5,000 Unit Tablet 5,000 Unit PO DAILY Cvs Calcium Citrate + D Tab (Ca Citrate/Mgox/Vit D3/B6/Min) 1 Each Tablet 1 Each PO BID Cvs Calcium Citrate + D Tab (Ca Citrate/Mgox/Vit D3/B6/Min) 1 Each Tablet 1 Each PO Lorcet 5-325 mg Tablet (Hydrocodone/Acetaminophen) 1 Each Tablet Leflunomide 20 Mg Tablet Metoprolol Succinate ( Xl ) (Metoprolol Succinate) 25 Mg Tab.er.24h Paroxetine Hcl 40 Mg Tablet Ondansetron Hcl 8 Mg Tablet Gabapentin 100 Mg Capsule Bupropion Hcl Sr (Bupropion Hcl) 100 Mg Tablet.er Clopidogrel (Clopidogrel Bisulfate) 75 Mg Tablet Furosemide 20 Mg Tablet 10 Mg PO DAILY Tiazac (Diltiazem Hcl) 120 Mg Capsule.er 240 Mg PO Evoxac (Cevimeline Hcl) 30 Mg Capsule 30 Mg PO Acetaminophen 500 Mg Tablet 1 Tab PO BID Vitals/I & O Vital Sign - Last 24 Hours 10/18/17 10/18/17 10/18/17 10/18/17 15:32 17:06 18:22 19:00 Temp 97.5 96.1 97.5 96.1 Pulse 103 74 Resp 17 18 B/P (MAP) 143/75 (97) 129/63 (85) Pulse Ox 95 94 O2 Delivery Room Air Room Air Room Air Room Air 10/18/17 10/18/17 10/19/17 10/19/17 20:00 23:00 03:00 07:00 Temp 97.7 97.5 97.5 97.7 97.5 97.5 Pulse 85 69 82 Resp 18 18 19 B/P (MAP) 151/82 (105) 129/64 (85) 157/80 (105) Pulse Ox 92 95 92 O2 Delivery Room Air Room Air Room Air Room Air 10/19/17 10/19/17 10/19/17 10/19/17 08:00 09:22 09:25 11:00 Temp 97.6 97.6 Pulse 82 82 86 Resp 20 B/P (MAP) 157/80 157/80 136/82 (100) Pulse Ox 95 O2 Delivery Room Air Room Air Intake and Output 10/18/17 10/18/17 10/19/17 15:00 23:00 07:00 Intake Total 560 ml 0 ml Output Total 2500 ml 2400 ml Balance -1940 ml -2400 ml Nutrition Consultation Dietary Evaluation: Recommendations by RD: Increase Calorie Intake, Protein supplementation Comments: boost plus, boost pudding, magic cup w/ meals Expected Outcomes/Goals: to meet > 75% est nutr needs Malnutrition Findings: Body Fat Depletion (Non Severe: Mod to Severe Weight Status: Underweight NITHYA ZAMUDIO MD Oct 19, 2017 13:46
--- NOTE | 2017-10-19 13:57 | PDOC ---
GI PROGRESS NOTES Date Date/Time DATE: 10/19/17 TIME: 13:55 Subjective Subjective NO change- trying to eat and on PPN CT results discussed with patient Objective Vitals Vital Signs Date Time Temp Pulse Resp B/P (MAP) Pulse Ox O2 Delivery O2 Flow Rate FiO2 10/19/17 11:00 97.6 86 20 136/82 (100) 95 Room Air 97.6 10/19/17 09:25 82 157/80 10/19/17 09:22 82 157/80 10/19/17 08:00 Room Air 10/19/17 07:00 97.5 82 19 157/80 (105) 92 Room Air 97.5 10/19/17 03:00 97.5 69 18 129/64 (85) 95 Room Air 97.5 10/18/17 23:00 97.7 85 18 151/82 (105) 92 Room Air 97.7 10/18/17 20:00 Room Air 10/18/17 19:00 96.1 74 18 129/63 (85) 94 Room Air 96.1 10/18/17 18:22 Room Air 10/18/17 17:06 Room Air 10/18/17 15:32 97.5 103 17 143/75 (97) 95 Room Air 97.5 Labs Labs Laboratory Tests Test 10/19/17 05:00 10/19/17 07:20 10/19/17 07:55 Sodium Level 132 mmol/L (136-145) Potassium Level 4.7 mmol/L (3.5-5.1) Chloride Level 97 mmol/L (98-107) Carbon Dioxide Level 23 mmol/L (21-32) Anion Gap 12 (6-14) Blood Urea Nitrogen 33 mg/dL (7-20) Creatinine 0.9 mg/dL (0.6-1.0) Estimated GFR (Cockcroft-Gault) 61.2 Glucose Level 115 mg/dL (70-99) Calcium Level 8.4 mg/dL (8.5-10.1) White Blood Count 9.2 x10^3/uL (4.0-11.0) Red Blood Count 2.82 x10^6/uL (3.50-5.40) Hemoglobin 8.5 g/dL (12.0-15.5) Hematocrit 26.0 % (36.0-47.0) Mean Corpuscular Volume 92 fL (79-100) Mean Corpuscular Hemoglobin 30 pg (25-35) Mean Corpuscular Hemoglobin Concent 33 g/dL (31-37) Red Cell Distribution Width 14.4 % (11.5-14.5) Platelet Count 624 x10^3/uL (140-400) Neutrophils (%) (Auto) 78 % (31-73) Lymphocytes (%) (Auto) 12 % (24-48) Monocytes (%) (Auto) 8 % (0-9) Eosinophils (%) (Auto) 1 % (0-3) Basophils (%) (Auto) 1 % (0-3) Neutrophils # (Auto) 7.2 x10^3uL (1.8-7.7) Lymphocytes # (Auto) 1.1 x10^3/uL (1.0-4.8) Monocytes # (Auto) 0.7 x10^3/uL (0.0-1.1) Eosinophils # (Auto) 0.1 x10^3/uL (0.0-0.7) Basophils # (Auto) 0.1 x10^3/uL (0.0-0.2) Stool Occult Blood Negative (NEG) Imaging Imaging CT reviewed Physical Exam Physical Exam thin, chest-clear cor- RRR abd- soft non tender no mass Assessment Assessment Chronic anorexia and malnutrition and weight loss- cortisols are OK- agree with Dr. Mcnair,with complex autoimmune issues, short course of steroids not unreasonable Chronic anemia- no overt bleeding, iron and B12 , folate are high and unreliable - likely chronic process chronic pancreatitis and ? prior IPMN- the Ct reveals cystic mass in tail of pancreas and sounds similar to prior studies - next step is elective EUS with FNA at later- I would NOT suggest MRCP at this time Started empiric trial of enzymes Problems: Plan Plan agree with CT agree with steroid trial will start pancreatic enzymes empirically as well may need referral back to for repeat EUS etc as well CONRAD FREEMAN MD Oct 19, 2017 13:57
[2017-10-19] MEDS: HYDROcodone/APAP 5/325MG 1 TAB TABLET PO PRN ×2 (14:10→21:00)
[2017-10-19 15:00] VITALS: BP 134/65
[2017-10-19 19:00] VITALS: BP 127/69
[2017-10-19] MEDS: GABAPENTIN 100 MG CAPSULE. PO SCH (21:01)
[2017-10-19] MEDS: LATANOPROST 0.005% OPHTH SOLUTION 2.5ML BOTTLE. OU SCH (21:37)
[2017-10-19 23:00] VITALS: BP 142/78
[2017-10-20 03:00] VITALS: BP 159/82
[2017-10-20 05:08] LABS: BASO % 0 % (0-3); EOS % 0 % (0-3); HEMATOCRIT 25.6 % (36.0-47.0); HEMOGLOBIN 8.4 g/dL (12.0-15.5); LYMPH # 0.6 x10^3/uL (1.0-4.8); LYMPH % 9 % (24-48); MEAN CORPUSCULAR HEMOGLOBIN 30 pg (25-35); MEAN CORPUSCULAR HGB CONC 33 g/dL (31-37); MEAN CORPUSCULAR VOLUME 92 fL (79-100); MONO % 1 % (0-9); NEUT % 89 % (31-73); PLATELET COUNT 637 x10^3/uL (140-400); RED BLOOD COUNT 2.79 x10^6/uL (3.50-5.40); RED CELL DISTRIBUTION WIDTH 14.6 % (11.5-14.5); WHITE BLOOD COUNT 6.3 x10^3/uL (4.0-11.0)
[2017-10-20 05:50] LABS: CALCIUM 9.1 mg/dL (8.5-10.1); CREATININE 1.1 mg/dL (0.6-1.0); GFR 48.6; POTASSIUM 4.9 mmol/L (3.5-5.1)
[2017-10-20 07:00] VITALS: BP 159/88
[2017-10-20 08:09] LABS: ANISOCYTOSIS SLIGHT; HYPOCHROMIA SLIGHT; PLT ESTIMATE INCREASED (ADEQUATE)
--- NOTE | 2017-10-20 08:57 | PDOC ---
PROGRESS NOTES Subjective Subjective HPI- - f/u of .Panc mass - and CLL ROS -no abd pain, appetite better Objective Objective Vital Signs Date Time Temp Pulse Resp B/P (MAP) Pulse Ox O2 Delivery O2 Flow Rate FiO2 10/20/17 08:02 Room Air 10/20/17 07:00 97.6 81 18 159/88 (111) 95 97.6 Intake and Output 10/20/17 07:00 Intake Total 3090 ml Output Total 1575 ml Balance 1515 ml Intake Oral 3090 ml Output Urine Total 1575 ml # Voids 1 # Bowel Movements 1 Physical Exam Heart: Normal S1, Normal S2 General: Alert, Oriented X3 Lungs: Clear to auscultation Neuro: Normal speech Psych/Mental Status: Mental status NL Assessment Assessment A&P 72 yo F w/ Failure to thrive symptoms, malnourishment, underlying CLL, known panc mass for many years. 1.Panc mass - she will continue to f/u with Dr Lou at . Repeat EUS/ERCP could be considered at . CA 19-9 is also pending. 2. CLL - stable. f/u with Dr Powers 3. Anemia - monitor 4. Thrombocytosis - monitor Hb 5. Dr Mcnair ordered decadron 40mg PO daily x 4 days for both autoimmune disorders and appetite stimulation, as well as pain relief. I d/w Dr Grayson Comment Review of Relevant I have reviewed the following items sawyer (where applicable) has been applied. Labs Laboratory Tests Test 10/18/17 10:15 10/19/17 05:00 10/19/17 07:20 10/19/17 07:55 White Blood Count 10.4 x10^3/uL (4.0-11.0) 9.2 x10^3/uL (4.0-11.0) Red Blood Count 3.22 x10^6/uL (3.50-5.40) 2.82 x10^6/uL (3.50-5.40) Hemoglobin 9.6 g/dL (12.0-15.5) 8.5 g/dL (12.0-15.5) Hematocrit 29.6 % (36.0-47.0) 26.0 % (36.0-47.0) Mean Corpuscular Volume 92 fL (79-100) 92 fL (79-100) Mean Corpuscular Hemoglobin 30 pg (25-35) 30 pg (25-35) Mean Corpuscular Hemoglobin Concent 32 g/dL (31-37) 33 g/dL (31-37) Red Cell Distribution Width 14.7 % (11.5-14.5) 14.4 % (11.5-14.5) Platelet Count 681 x10^3/uL (140-400) 624 x10^3/uL (140-400) Neutrophils (%) (Auto) 83 % (31-73) 78 % (31-73) Lymphocytes (%) (Auto) 9 % (24-48) 12 % (24-48) Monocytes (%) (Auto) 7 % (0-9) 8 % (0-9) Eosinophils (%) (Auto) 0 % (0-3) 1 % (0-3) Basophils (%) (Auto) 1 % (0-3) 1 % (0-3) Neutrophils # (Auto) 8.6 x10^3uL (1.8-7.7) 7.2 x10^3uL (1.8-7.7) Lymphocytes # (Auto) 0.9 x10^3/uL (1.0-4.8) 1.1 x10^3/uL (1.0-4.8) Monocytes # (Auto) 0.7 x10^3/uL (0.0-1.1) 0.7 x10^3/uL (0.0-1.1) Eosinophils # (Auto) 0.0 x10^3/uL (0.0-0.7) 0.1 x10^3/uL (0.0-0.7) Basophils # (Auto) 0.1 x10^3/uL (0.0-0.2) 0.1 x10^3/uL (0.0-0.2) Reticulocyte Count (auto) 3.0 % (0.5-2.5) Haptoglobin 477 mg/dL (34-200) Fibrinogen 686 mg/dL (200-440) Sodium Level 131 mmol/L (136-145) 132 mmol/L (136-145) Potassium Level 4.8 mmol/L (3.5-5.1) 4.7 mmol/L (3.5-5.1) Chloride Level 94 mmol/L (98-107) 97 mmol/L (98-107) Carbon Dioxide Level 24 mmol/L (21-32) 23 mmol/L (21-32) Anion Gap 13 (6-14) 12 (6-14) Blood Urea Nitrogen 30 mg/dL (7-20) 33 mg/dL (7-20) Creatinine 1.1 mg/dL (0.6-1.0) 0.9 mg/dL (0.6-1.0) Estimated GFR (Cockcroft-Gault) 48.6 61.2 Glucose Level 92 mg/dL (70-99) 115 mg/dL (70-99) Calcium Level 9.4 mg/dL (8.5-10.1) 8.4 mg/dL (8.5-10.1) Magnesium Level 2.0 mg/dL (1.8-2.4) Lactate Dehydrogenase 234 U/L (81-234) Prealbumin 29.5 mg/dL (16.0-42.0) Stool Occult Blood Negative (NEG) Test 10/20/17 04:00 White Blood Count 6.3 x10^3/uL (4.0-11.0) Red Blood Count 2.79 x10^6/uL (3.50-5.40) Hemoglobin 8.4 g/dL (12.0-15.5) Hematocrit 25.6 % (36.0-47.0) Mean Corpuscular Volume 92 fL (79-100) Mean Corpuscular Hemoglobin 30 pg (25-35) Mean Corpuscular Hemoglobin Concent 33 g/dL (31-37) Red Cell Distribution Width 14.6 % (11.5-14.5) Platelet Count 637 x10^3/uL (140-400) Neutrophils (%) (Auto) 89 % (31-73) Lymphocytes (%) (Auto) 9 % (24-48) Monocytes (%) (Auto) 1 % (0-9) Eosinophils (%) (Auto) 0 % (0-3) Basophils (%) (Auto) 0 % (0-3) Neutrophils # (Auto) 5.6 x10^3uL (1.8-7.7) Lymphocytes # (Auto) 0.6 x10^3/uL (1.0-4.8) Monocytes # (Auto) 0.1 x10^3/uL (0.0-1.1) Eosinophils # (Auto) 0.0 x10^3/uL (0.0-0.7) Basophils # (Auto) 0.0 x10^3/uL (0.0-0.2) Segmented Neutrophils % 88 % (35-66) Band Neutrophils % 2 % (0-9) Lymphocytes % 9 % (24-48) Monocytes % 1 % (0-10) Platelet Estimate Increased (ADEQUATE) Large Platelets Present Hypochromasia Slight Anisocytosis Slight Sodium Level 129 mmol/L (136-145) Potassium Level 4.9 mmol/L (3.5-5.1) Chloride Level 96 mmol/L (98-107) Carbon Dioxide Level 21 mmol/L (21-32) Anion Gap 12 (6-14) Blood Urea Nitrogen 43 mg/dL (7-20) Creatinine 1.1 mg/dL (0.6-1.0) Estimated GFR (Cockcroft-Gault) 48.6 Glucose Level 134 mg/dL (70-99) Calcium Level 9.1 mg/dL (8.5-10.1) Laboratory Tests Test 10/20/17 04:00 White Blood Count 6.3 x10^3/uL (4.0-11.0) Red Blood Count 2.79 x10^6/uL (3.50-5.40) Hemoglobin 8.4 g/dL (12.0-15.5) Hematocrit 25.6 % (36.0-47.0) Mean Corpuscular Volume 92 fL (79-100) Mean Corpuscular Hemoglobin 30 pg (25-35) Mean Corpuscular Hemoglobin Concent 33 g/dL (31-37) Red Cell Distribution Width 14.6 % (11.5-14.5) Platelet Count 637 x10^3/uL (140-400) Neutrophils (%) (Auto) 89 % (31-73) Lymphocytes (%) (Auto) 9 % (24-48) Monocytes (%) (Auto) 1 % (0-9) Eosinophils (%) (Auto) 0 % (0-3) Basophils (%) (Auto) 0 % (0-3) Neutrophils # (Auto) 5.6 x10^3uL (1.8-7.7) Lymphocytes # (Auto) 0.6 x10^3/uL (1.0-4.8) Monocytes # (Auto) 0.1 x10^3/uL (0.0-1.1) Eosinophils # (Auto) 0.0 x10^3/uL (0.0-0.7) Basophils # (Auto) 0.0 x10^3/uL (0.0-0.2) Segmented Neutrophils % 88 % (35-66) Band Neutrophils % 2 % (0-9) Lymphocytes % 9 % (24-48) Monocytes % 1 % (0-10) Platelet Estimate Increased (ADEQUATE) Large Platelets Present Hypochromasia Slight Anisocytosis Slight Sodium Level 129 mmol/L (136-145) Potassium Level 4.9 mmol/L (3.5-5.1) Chloride Level 96 mmol/L (98-107) Carbon Dioxide Level 21 mmol/L (21-32) Anion Gap 12 (6-14) Blood Urea Nitrogen 43 mg/dL (7-20) Creatinine 1.1 mg/dL (0.6-1.0) Estimated GFR (Cockcroft-Gault) 48.6 Glucose Level 134 mg/dL (70-99) Calcium Level 9.1 mg/dL (8.5-10.1) Medications Current Medications Sodium Chloride 1,000 ml @ 100 mls/hr Q10H IV Last administered on 10/16/17 22:03; Start 10/16/17 at 20:36; Stop 10/17/17 at 06:35; Status DC Prochlorperazine Edisylate (Compazine) 10 mg PRN Q6HRS PRN IV NAUSEA/VOMITING; Start 10/16/17 at 20:45 Calcium Carbonate/ Glycine (Tums) 500 mg PRN Q3HRS PRN PO UPSET STOMACH; Start 10/16/17 at 20:45 Heparin Sodium (Porcine) (Heparin Sq) 5,000 unit Q12HR SQ Last administered on 10/19/17 21:07; Start 10/17/17 at 09:00 Acetaminophen (Tylenol) 500 mg BID PO Last administered on 10/19/17 21:00; Start 10/16/17 at 22:00 Bupropion HCl (Wellbutrin Sr) 100 mg DAILY PO Last administered on 10/19/17 09:22; Start 10/17/17 at 09:00 Clopidogrel Bisulfate (Plavix) 75 mg DAILY PO Last administered on 10/19/17 09:24; Start 10/17/17 at 09:00 Cyclosporine (Restasis) 1 drop BID OU Last administered on 10/19/17 21:01; Start 10/17/17 at 09:00 Folic Acid (Folic Acid) 1 mg TID PO Last administered on 10/19/17 21:00; Start 10/16/17 at 22:00 Gabapentin (Neurontin) 200 mg QHS PO Last administered on 10/19/17 21:01; Start 10/16/17 at 22:00 Acetaminophen/ Hydrocodone Bitart (Lortab 5/325) 1 tab Q6HRS PRN PO MODERATE - SEVERE PAIN Last administered on 10/19/17 21:00; Start 10/16/17 at 21:30 Latanoprost (Xalatan) 1 drop HS OU Last administered on 10/19/17 21:37; Start 10/16/17 at 22:00 Metoprolol Succinate (Toprol Xl) 25 mg DAILY PO Last administered on 09:22; Start 10/17/17 at 09:00 Metoprolol Succinate (Toprol Xl) 25 mg DAILY PO ; Start 10/17/17 at 09:00; Status UNV Tramadol HCl (Ultram) 50 mg Q4H PRN PO MILD PAIN; Start 10/16/17 at 21:30 Calcium/Vitamin D (Oscal D 500mg/ 200uts) 1 tab BIDWMEALS PO Last administered on 10/19/17 16:51; Start 10/17/17 at 08:00 Multivitamins (Thera M Plus) 1 tab DAILY PO Last administered on 10/19/17 09: 23; Start 10/17/17 at 09:00 Hydroxyzine HCl (Atarax) 10 mg PRN Q6HRS PRN PO ITCHING; Start 10/16/17 at 21: 30 Ondansetron HCl (Zofran Odt) 4 mg PRN Q6HRS PRN PO NAUSEA/VOMITING; Start at 21:30 Paroxetine HCl (Paxil) 20 mg DAILY PO Last administered on 10/19/17 09:23; Start 10/17/17 at 09:00 Psyllium Hydrophilic Mucilloid (Metamucil Fiber Packet) 1 pkt DAILY PO Last administered on 10/19/17 09:27; Start 10/17/17 at 09:00 Diltiazem HCl (Cardizem 24hr Cd) 240 mg DAILY PO Last administered on 09:25; Start 10/17/17 at 09:00 Magnesium Sulfate/ Dextrose 50 ml @ 25 mls/hr 1X ONCE IV Last administered on 10/17/17 12:05; Start 10/17/17 at 11:45; Stop 10/17/17 at 13:44; Status DC Amino Acids/ Glycerin/ Electrolytes 1,000 ml @ 80 mls/hr [id number] IV Last administered on 10/19/17 22:30; Start 10/17/17 at 11:45 Dronabinol (Marinol) 2.5 mg BIDACLD PO Last administered on 10/19/17 16:51; Start 10/17/17 at 16:30 Pantoprazole Sodium (Protonix) 40 mg BIDAC PO Last administered on 10/19/17 16:51; Start 10/17/17 at 16:30 Iohexol (Omnipaque 300 Mg/ml) 75 ml 1X ONCE IV ; Start 10/18/17 at 11:00; Stop 10/18/17 at 11:01; Status DC Iohexol (Omnipaque 240 Mg/ml) 50 ml 1X ONCE PO ; Start 10/18/17 at 11:00; Stop 10/18/17 at 11:01; Status DC Info (Do NOT chart on this entry -- for MONITORING) 1 each PRN DAILY PRN MC SEE COMMENTS; Start 10/18/17 at 11:00; Stop 10/20/17 at 10:59 Amylase/Lipase/ Protease (Zenpep 10,000) 2 cap TIDWMEALS PO Last administered on 10/19/17 16:52; Start 10/18/17 at 12:00 Iohexol (Omnipaque 300 Mg/ml) 60 ml 1X ONCE IV Last administered on 16:43; Start 10/18/17 at 16:45; Stop 10/18/17 at 16:46; Status DC Iohexol (Omnipaque 240 Mg/ml) 50 ml 1X ONCE PO Last administered on t 16:43; Start 10/18/17 at 16:45; Stop 10/18/17 at 16:46; Status DC Iohexol (Omnipaque 240 Mg/ml) 50 ml 1X ONCE PO Last administered on t 16:43; Start 10/18/17 at 16:45; Stop 10/18/17 at 16:46; Status DC Info (Do NOT chart on this entry -- for MONITORING) 1 each PRN DAILY PRN MC SEE COMMENTS; Start 10/18/17 at 16:45; Stop 10/20/17 at 16:44 Dexamethasone (Decadron) 40 mg DAILY PO Last administered on 10/19/17 09:26; Start 10/19/17 at 09:00; Stop 10/23/17 at 07:00 Active Scripts Active Reported Triamcinolone Acetonide 0.1% Oint (Triamcinolone Acetonide) 15 Gm Oint...g. 1 Tali TP BID MIX WITH EUCERIN DIRECTED BY PHYSICIAN Tramadol Hcl 50 Mg Tablet 50 Mg PO Q4H PRN Tizanidine Hcl 4 Mg Capsule 8 Mg PO HS Tizanidine Hcl 2 Mg Capsule 2 Mg PO BID Spironolactone 25 Mg Tablet 25 Mg PO DAILY Metamucil Powder (Psyllium Seed (with Sugar)) 575 Gm Powder 575 Gm PO One Daily (Multivitamin) 1 Each Tablet 1 Each PO DAILY Toprol Xl (Metoprolol Succinate) 25 Mg Tab.er.24h 25 Mg PO DAILY Latanoprost 2.5 Ml Drops 1 Drop OP HS Hydroxyzine Hcl 25 Mg Tablet 25 Mg PO Hydroxychloroquine Sulfate 200 Mg Tablet 200 Mg PO BID Folic Acid 1 Mg Tablet 1 Mg PO TID Restasis (Cyclosporine) 1 Each Droperette 1 Drop EACHEYE BID Vitamin D3 (Cholecalciferol (Vitamin D3)) 5,000 Unit Tablet 5,000 Unit PO DAILY [facility]vs Calcium Citrate + D Tab (Ca Citrate/Mgox/Vit D3/B6/Min) 1 Each Tablet 1 Each PO BID [facility]vs Calcium Citrate + D Tab (Ca Citrate/Mgox/Vit D3/B6/Min) 1 Each Tablet 1 Each PO Lorcet 5-325 mg Tablet (Hydrocodone/Acetaminophen) 1 Each Tablet Leflunomide 20 Mg Tablet Metoprolol Succinate ( Xl ) (Metoprolol Succinate) 25 Mg Tab.er.24h Paroxetine Hcl 40 Mg Tablet Ondansetron Hcl 8 Mg Tablet Gabapentin 100 Mg Capsule Bupropion Hcl Sr (Bupropion Hcl) 100 Mg Tablet.er Clopidogrel (Clopidogrel Bisulfate) 75 Mg Tablet Furosemide 20 Mg Tablet 10 Mg PO DAILY Tiazac (Diltiazem Hcl) 120 Mg Capsule.er 240 Mg PO Evoxac (Cevimeline Hcl) 30 Mg Capsule 30 Mg PO Acetaminophen 500 Mg Tablet 1 Tab PO BID Vitals/I & O Vital Sign - Last 24 Hours 10/19/17 10/19/17 10/19/17 10/19/17 09:22 09:25 11:00 14:10 Temp 97.6 97.6 Pulse 82 82 86 Resp 20 16 B/P (MAP) 157/80 157/80 136/82 (100) Pulse Ox 95 95 O2 Delivery Room Air Room Air 10/19/17 10/19/17 10/19/17 10/19/17 15:00 15:10 19:00 20:00 Temp 97.7 97.7 97.7 97.7 Pulse 84 98 Resp 20 16 20 B/P (MAP) 134/65 (88) 127/69 (88) Pulse Ox 100 95 97 O2 Delivery Room Air Room Air Room Air 10/19/17 10/19/17 10/19/17 10/20/17 21:00 22:00 23:00 03:00 Temp 97.5 97.5 97.5 97.5 Pulse 91 82 Resp 20 20 B/P (MAP) 142/78 (99) 159/82 (107) Pulse Ox 94 96 O2 Delivery Room Air Room Air Room Air Room Air 10/20/17 10/20/17 07:00 08:02 Temp 97.6 97.6 Pulse 81 Resp 18 B/P (MAP) 159/88 (111) Pulse Ox 95 O2 Delivery Room Air Room Air Intake and Output 10/19/17 10/19/17 10/20/17 15:00 23:00 07:00 Intake Total 1500 ml 1070 ml 520 ml Output Total 350 ml 1225 ml Balance 1150 ml -155 ml 520 ml Nutrition Consultation Dietary Evaluation: Recommendations by RD: Increase Calorie Intake, Protein supplementation Comments: boost plus, boost pudding, magic cup w/ meals Expected Outcomes/Goals: to meet > 75% est nutr needs Malnutrition Findings: Body Fat Depletion (Non Severe: Mod to Severe Weight Status: Underweight NANETTE WEEKS MD Oct 20, 2017 08:57
[2017-10-20] MEDS: PSYLLIUM HUSK (SUGAR FREE) 1 PKT PACKET PO SCH (09:00)
[2017-10-20] MEDS: cycloSPORINE 0.05% OPTH 1 DROP DROPERETTE OU SCH ×2 (09:00→21:07)
[2017-10-20] MEDS: ACETAMINOPHEN 500 MG TABLET PO SCH ×2 (10:53→21:07)
[2017-10-20] MEDS: METOPROLOL SUCC 24HR ER 25 MG TAB.ER.24H. PO SCH (10:53)
[2017-10-20] MEDS: LIPASE/PROTEAS/AMYLAS 10/34/55 CAPSULE.DR. PO SCH ×3 (10:53→17:11)
[2017-10-20] MEDS: PANTOPRAZOLE 40 MG TABLET.DR. PO SCH ×2 (10:53→17:10)
[2017-10-20] MEDS: buPROPion SR 100 MG TABLET.SA. PO SCH (10:54)
[2017-10-20] MEDS: PARoxetine 20 MG TABLET PO SCH (10:54)
[2017-10-20] MEDS: CLOPIDOGREL BISULFATE 75 MG TABLET PO SCH (10:54)
[2017-10-20] MEDS: DRONABINOL 2.5 MG CAPSULE. PO SCH ×2 (10:54→17:10)
[2017-10-20] MEDS: FOLIC ACID 1 MG TABLET. PO SCH ×3 (10:54→21:07)
[2017-10-20] MEDS: MULTIVITAMIN with MINERAL TABLET. PO SCH (10:54)
[2017-10-20] MEDS: DEXAMETHASONE 4 MG TABLET PO SCH (10:55)
[2017-10-20 11:00] VITALS: BP 142/83
--- NOTE | 2017-10-20 11:00 | PDOC ---
Subjective: Subjective: Say appetite is better, "ate everything" this morning - names eggs, cereal, juice, coffee. Has some questions about going to rehab. Objective: Objective: Per RN - not sure how much breakfast she ate although pt told her earlier today she felt hungry. Vital Signs: Vital Signs Date Time Temp Pulse Resp B/P (MAP) Pulse Ox O2 Delivery O2 Flow Rate FiO2 10/20/17 08:02 Room Air 10/20/17 07:00 97.6 81 18 159/88 (111) 95 97.6 Labs: Laboratory Tests Test 10/20/17 04:00 White Blood Count 6.3 x10^3/uL Red Blood Count 2.79 x10^6/uL Hemoglobin 8.4 g/dL Hematocrit 25.6 % Mean Corpuscular Volume 92 fL Mean Corpuscular Hemoglobin 30 pg Mean Corpuscular Hemoglobin Concent 33 g/dL Red Cell Distribution Width 14.6 % Platelet Count 637 x10^3/uL Neutrophils (%) (Auto) 89 % Lymphocytes (%) (Auto) 9 % Monocytes (%) (Auto) 1 % Eosinophils (%) (Auto) 0 % Basophils (%) (Auto) 0 % Neutrophils # (Auto) 5.6 x10^3uL Lymphocytes # (Auto) 0.6 x10^3/uL Monocytes # (Auto) 0.1 x10^3/uL Eosinophils # (Auto) 0.0 x10^3/uL Basophils # (Auto) 0.0 x10^3/uL Segmented Neutrophils % 88 % Band Neutrophils % 2 % Lymphocytes % 9 % Monocytes % 1 % Platelet Estimate Increased Large Platelets Present Hypochromasia Slight Anisocytosis Slight Sodium Level 129 mmol/L Potassium Level 4.9 mmol/L Chloride Level 96 mmol/L Carbon Dioxide Level 21 mmol/L Anion Gap 12 Blood Urea Nitrogen 43 mg/dL Creatinine 1.1 mg/dL Estimated GFR (Cockcroft-Gault) 48.6 Glucose Level 134 mg/dL Calcium Level 9.1 mg/dL Ferritin 65 ng/mL PE: GEN: NAD, up to chair LUNGS: CTAB HEART: RRR ABD: S/ND/NT NEURO/PSYCH: A & O 3 A/P: Pancreatic tail cystic mass, pancreatic ductal dilatation -IgG, CA19-9 pending -h/o pancreatitis Anorexia - ?improved -non panc enzymes, BID PPI, PPN, Decadron, Marinol Anemia - chronic -EGD ~2 years ago, colonoscopy earlier this year RA, CLL -- Discussion of repeating EUS @ [facility], other per Dr. Castelan. MARGARITA MAYA Oct 20, 2017 11:00
[2017-10-20] MEDS: CALCIUM CARB/VIT D3 500/200 TABLET. PO SCH ×2 (11:01→17:10)
[2017-10-20] MEDS: HEPARIN PF for SUB-Q USE 5,000 UNIT/0.5 ML VIAL. SQ SCH (11:18)
--- NOTE | 2017-10-20 12:16 | PDOC ---
PROGRESS NOTES Chief Complaint Chief Complaint Weakness, FTT 1. FTT: weight loss and weakness, BMI 16 eating a little more here. no vomiting. 2. Anorexia: unclear etiology. med related vs mesenteric ischemia vs GI malignancy Onc consult has started decadron she has seen Dr. 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 CHEIKH: vasomotor improving with IVF 4. 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 Hypomagnesemia and hyponatremia: replete IV 6. Anemia: anemia labs pending. transfuse PRBC x1 yesterday 7. Prophylaxis: PPI, lovenox History of Present Illness History of Present Illness PLAN dc in AM if serum sodium improved, renal consulted on admit f./u [facility], Dr. Lou, cont current decadrom will finish tomorrow, feels a little better. no focal c/o Vitals Vitals Vital Signs Date Time Temp Pulse Resp B/P (MAP) Pulse Ox O2 Delivery O2 Flow Rate FiO2 10/20/17 11:00 97.8 85 18 142/83 (102) 98 Room Air 97.8 Physical Exam Physical Exam cachectic General: Alert, Oriented X3 Heart: Normal S1, Normal S2 Lungs: Clear Abdomen: Normal bowel sounds, Soft, No tenderness, No hepatosplenomegaly, No masses Extremities: No clubbing, No cyanosis, No edema, Normal pulses, No tenderness/ swelling Skin: Other (plaques on B elbows) Labs LABS Laboratory Tests Test 10/20/17 04:00 White Blood Count 6.3 x10^3/uL (4.0-11.0) Red Blood Count 2.79 x10^6/uL (3.50-5.40) Hemoglobin 8.4 g/dL (12.0-15.5) Hematocrit 25.6 % (36.0-47.0) Mean Corpuscular Volume 92 fL (79-100) Mean Corpuscular Hemoglobin 30 pg (25-35) Mean Corpuscular Hemoglobin Concent 33 g/dL (31-37) Red Cell Distribution Width 14.6 % (11.5-14.5) Platelet Count 637 x10^3/uL (140-400) Neutrophils (%) (Auto) 89 % (31-73) Lymphocytes (%) (Auto) 9 % (24-48) Monocytes (%) (Auto) 1 % (0-9) Eosinophils (%) (Auto) 0 % (0-3) Basophils (%) (Auto) 0 % (0-3) Neutrophils # (Auto) 5.6 x10^3uL (1.8-7.7) Lymphocytes # (Auto) 0.6 x10^3/uL (1.0-4.8) Monocytes # (Auto) 0.1 x10^3/uL (0.0-1.1) Eosinophils # (Auto) 0.0 x10^3/uL (0.0-0.7) Basophils # (Auto) 0.0 x10^3/uL (0.0-0.2) Segmented Neutrophils % 88 % (35-66) Band Neutrophils % 2 % (0-9) Lymphocytes % 9 % (24-48) Monocytes % 1 % (0-10) Platelet Estimate Increased (ADEQUATE) Large Platelets Present Hypochromasia Slight Anisocytosis Slight Sodium Level 129 mmol/L (136-145) Potassium Level 4.9 mmol/L (3.5-5.1) Chloride Level 96 mmol/L (98-107) Carbon Dioxide Level 21 mmol/L (21-32) Anion Gap 12 (6-14) Blood Urea Nitrogen 43 mg/dL (7-20) Creatinine 1.1 mg/dL (0.6-1.0) Estimated GFR (Cockcroft-Gault) 48.6 Glucose Level 134 mg/dL (70-99) Calcium Level 9.1 mg/dL (8.5-10.1) Ferritin 65 ng/mL (8-252) Comment Review of Relevant I have reviewed the following items sawyer (where applicable) has been applied. Labs Laboratory Tests Test 10/19/17 05:00 10/19/17 07:20 10/19/17 07:55 10/20/17 04:00 Sodium Level 132 mmol/L (136-145) 129 mmol/L (136-145) Potassium Level 4.7 mmol/L (3.5-5.1) 4.9 mmol/L (3.5-5.1) Chloride Level 97 mmol/L (98-107) 96 mmol/L (98-107) Carbon Dioxide Level 23 mmol/L (21-32) 21 mmol/L (21-32) Anion Gap 12 (6-14) 12 (6-14) Blood Urea Nitrogen 33 mg/dL (7-20) 43 mg/dL (7-20) Creatinine 0.9 mg/dL (0.6-1.0) 1.1 mg/dL (0.6-1.0) Estimated GFR (Cockcroft-Gault) 61.2 48.6 Glucose Level 115 mg/dL (70-99) 134 mg/dL (70-99) Calcium Level 8.4 mg/dL (8.5-10.1) 9.1 mg/dL (8.5-10.1) White Blood Count 9.2 x10^3/uL (4.0-11.0) 6.3 x10^3/uL (4.0-11.0) Red Blood Count 2.82 x10^6/uL (3.50-5.40) 2.79 x10^6/uL (3.50-5.40) Hemoglobin 8.5 g/dL (12.0-15.5) 8.4 g/dL (12.0-15.5) Hematocrit 26.0 % (36.0-47.0) 25.6 % (36.0-47.0) Mean Corpuscular Volume 92 fL (79-100) 92 fL (79-100) Mean Corpuscular Hemoglobin 30 pg (25-35) 30 pg (25-35) Mean Corpuscular Hemoglobin Concent 33 g/dL (31-37) 33 g/dL (31-37) Red Cell Distribution Width 14.4 % (11.5-14.5) 14.6 % (11.5-14.5) Platelet Count 624 x10^3/uL (140-400) 637 x10^3/uL (140-400) Neutrophils (%) (Auto) 78 % (31-73) 89 % (31-73) Lymphocytes (%) (Auto) 12 % (24-48) 9 % (24-48) Monocytes (%) (Auto) 8 % (0-9) 1 % (0-9) Eosinophils (%) (Auto) 1 % (0-3) 0 % (0-3) Basophils (%) (Auto) 1 % (0-3) 0 % (0-3) Neutrophils # (Auto) 7.2 x10^3uL (1.8-7.7) 5.6 x10^3uL (1.8-7.7) Lymphocytes # (Auto) 1.1 x10^3/uL (1.0-4.8) 0.6 x10^3/uL (1.0-4.8) Monocytes # (Auto) 0.7 x10^3/uL (0.0-1.1) 0.1 x10^3/uL (0.0-1.1) Eosinophils # (Auto) 0.1 x10^3/uL (0.0-0.7) 0.0 x10^3/uL (0.0-0.7) Basophils # (Auto) 0.1 x10^3/uL (0.0-0.2) 0.0 x10^3/uL (0.0-0.2) Stool Occult Blood Negative (NEG) Segmented Neutrophils % 88 % (35-66) Band Neutrophils % 2 % (0-9) Lymphocytes % 9 % (24-48) Monocytes % 1 % (0-10) Platelet Estimate Increased (ADEQUATE) Large Platelets Present Hypochromasia Slight Anisocytosis Slight Ferritin 65 ng/mL (8-252) Laboratory Tests Test 10/20/17 04:00 White Blood Count 6.3 x10^3/uL (4.0-11.0) Red Blood Count 2.79 x10^6/uL (3.50-5.40) Hemoglobin 8.4 g/dL (12.0-15.5) Hematocrit 25.6 % (36.0-47.0) Mean Corpuscular Volume 92 fL (79-100) Mean Corpuscular Hemoglobin 30 pg (25-35) Mean Corpuscular Hemoglobin Concent 33 g/dL (31-37) Red Cell Distribution Width 14.6 % (11.5-14.5) Platelet Count 637 x10^3/uL (140-400) Neutrophils (%) (Auto) 89 % (31-73) Lymphocytes (%) (Auto) 9 % (24-48) Monocytes (%) (Auto) 1 % (0-9) Eosinophils (%) (Auto) 0 % (0-3) Basophils (%) (Auto) 0 % (0-3) Neutrophils # (Auto) 5.6 x10^3uL (1.8-7.7) Lymphocytes # (Auto) 0.6 x10^3/uL (1.0-4.8) Monocytes # (Auto) 0.1 x10^3/uL (0.0-1.1) Eosinophils # (Auto) 0.0 x10^3/uL (0.0-0.7) Basophils # (Auto) 0.0 x10^3/uL (0.0-0.2) Segmented Neutrophils % 88 % (35-66) Band Neutrophils % 2 % (0-9) Lymphocytes % 9 % (24-48) Monocytes % 1 % (0-10) Platelet Estimate Increased (ADEQUATE) Large Platelets Present Hypochromasia Slight Anisocytosis Slight Sodium Level 129 mmol/L (136-145) Potassium Level 4.9 mmol/L (3.5-5.1) Chloride Level 96 mmol/L (98-107) Carbon Dioxide Level 21 mmol/L (21-32) Anion Gap 12 (6-14) Blood Urea Nitrogen 43 mg/dL (7-20) Creatinine 1.1 mg/dL (0.6-1.0) Estimated GFR (Cockcroft-Gault) 48.6 Glucose Level 134 mg/dL (70-99) Calcium Level 9.1 mg/dL (8.5-10.1) Ferritin 65 ng/mL (8-252) Medications Current Medications Sodium Chloride 1,000 ml @ 100 mls/hr Q10H IV Last administered on 10/16/17 22:03; Start 10/16/17 at 20:36; Stop 10/17/17 at 06:35; Status DC Prochlorperazine Edisylate (Compazine) 10 mg PRN Q6HRS PRN IV NAUSEA/VOMITING; Start 10/16/17 at 20:45 Calcium Carbonate/ Glycine (Tums) 500 mg PRN Q3HRS PRN PO UPSET STOMACH Last administered on 10/20/17 10:53; Start 10/16/17 at 20:45 Heparin Sodium (Porcine) (Heparin Sq) 5,000 unit Q12HR SQ Last administered on 10/20/17 11:18; Start 10/17/17 at 09:00 Acetaminophen (Tylenol) 500 mg BID PO Last administered on 10/20/17 10:53; Start 10/16/17 at 22:00 Bupropion HCl (Wellbutrin Sr) 100 mg DAILY PO Last administered on 10/20/17 10:54; Start 10/17/17 at 09:00 Clopidogrel Bisulfate (Plavix) 75 mg DAILY PO Last administered on 10/20/17 10:54; Start 10/17/17 at 09:00 Cyclosporine (Restasis) 1 drop BID OU Last administered on 10/19/17 21:01; Start 10/17/17 at 09:00 Folic Acid (Folic Acid) 1 mg TID PO Last administered on 10/20/17 10:54; Start 10/16/17 at 22:00 Gabapentin (Neurontin) 200 mg QHS PO Last administered on 10/19/17 21:01; Start 10/16/17 at 22:00 Acetaminophen/ Hydrocodone Bitart (Lortab 5/325) 1 tab Q6HRS PRN PO MODERATE - SEVERE PAIN Last administered on 10/19/17 21:00; Start 10/16/17 at 21:30 Latanoprost (Xalatan) 1 drop HS OU Last administered on 10/19/17 21:37; Start 10/16/17 at 22:00 Metoprolol Succinate (Toprol Xl) 25 mg DAILY PO Last administered on 10:53; Start 10/17/17 at 09:00 Metoprolol Succinate (Toprol Xl) 25 mg DAILY PO ; Start 10/17/17 at 09:00; Status UNV Tramadol HCl (Ultram) 50 mg Q4H PRN PO MILD PAIN; Start 10/16/17 at 21:30 Calcium/Vitamin D (Oscal D 500mg/ 200uts) 1 tab BIDWMEALS PO Last administered on 10/20/17 11:01; Start 10/17/17 at 08:00 Multivitamins (Thera M Plus) 1 tab DAILY PO Last administered on 10/20/17 10: 54; Start 10/17/17 at 09:00 Hydroxyzine HCl (Atarax) 10 mg PRN Q6HRS PRN PO ITCHING; Start 10/16/17 at 21: 30 Ondansetron HCl (Zofran Odt) 4 mg PRN Q6HRS PRN PO NAUSEA/VOMITING; Start at 21:30 Paroxetine HCl (Paxil) 20 mg DAILY PO Last administered on 10/20/17 10:54; Start 10/17/17 at 09:00 Psyllium Hydrophilic Mucilloid (Metamucil Fiber Packet) 1 pkt DAILY PO Last administered on 10/19/17 09:27; Start 10/17/17 at 09:00 Diltiazem HCl (Cardizem 24hr Cd) 240 mg DAILY PO Last administered on 10:54; Start 10/17/17 at 09:00 Magnesium Sulfate/ Dextrose 50 ml @ 25 mls/hr 1X ONCE IV Last administered on 10/17/17 12:05; Start 10/17/17 at 11:45; Stop 10/17/17 at 13:44; Status DC Amino Acids/ Glycerin/ Electrolytes 1,000 ml @ 80 mls/hr [id number] IV Last administered on 10/19/17 22:30; Start 10/17/17 at 11:45 Dronabinol (Marinol) 2.5 mg BIDACLD PO Last administered on 10/20/17 10:54; Start 10/17/17 at 16:30 Pantoprazole Sodium (Protonix) 40 mg BIDAC PO Last administered on 10/20/17 10:53; Start 10/17/17 at 16:30 Iohexol (Omnipaque 300 Mg/ml) 75 ml 1X ONCE IV ; Start 10/18/17 at 11:00; Stop 10/18/17 at 11:01; Status DC Iohexol (Omnipaque 240 Mg/ml) 50 ml 1X ONCE PO ; Start 10/18/17 at 11:00; Stop 10/18/17 at 11:01; Status DC Info (Do NOT chart on this entry -- for MONITORING) 1 each PRN DAILY PRN MC SEE COMMENTS; Start 10/18/17 at 11:00; Stop 10/20/17 at 10:59; Status DC Amylase/Lipase/ Protease (Zenpep 10,000) 2 cap TIDWMEALS PO Last administered on 10/20/17 10:53; Start 10/18/17 at 12:00 Iohexol (Omnipaque 300 Mg/ml) 60 ml 1X ONCE IV Last administered on 16:43; Start 10/18/17 at 16:45; Stop 10/18/17 at 16:46; Status DC Iohexol (Omnipaque 240 Mg/ml) 50 ml 1X ONCE PO Last administered on t 16:43; Start 10/18/17 at 16:45; Stop 10/18/17 at 16:46; Status DC Iohexol (Omnipaque 240 Mg/ml) 50 ml 1X ONCE PO Last administered on t 16:43; Start 10/18/17 at 16:45; Stop 10/18/17 at 16:46; Status DC Info (Do NOT chart on this entry -- for MONITORING) 1 each PRN DAILY PRN MC SEE COMMENTS; Start 10/18/17 at 16:45; Stop 10/20/17 at 16:44 Dexamethasone (Decadron) 40 mg DAILY PO Last administered on 10/20/17 10:55; Start 10/19/17 at 09:00; Stop 10/23/17 at 07:00 Active Scripts Active Reported Triamcinolone Acetonide 0.1% Oint (Triamcinolone Acetonide) 15 Gm Oint...g. 1 Tali TP BID MIX WITH EUCERIN DIRECTED BY PHYSICIAN Tramadol Hcl 50 Mg Tablet 50 Mg PO Q4H PRN Tizanidine Hcl 4 Mg Capsule 8 Mg PO HS Tizanidine Hcl 2 Mg Capsule 2 Mg PO BID Spironolactone 25 Mg Tablet 25 Mg PO DAILY Metamucil Powder (Psyllium Seed (with Sugar)) 575 Gm Powder 575 Gm PO One Daily (Multivitamin) 1 Each Tablet 1 Each PO DAILY Toprol Xl (Metoprolol Succinate) 25 Mg Tab.er.24h 25 Mg PO DAILY Latanoprost 2.5 Ml Drops 1 Drop OP HS Hydroxyzine Hcl 25 Mg Tablet 25 Mg PO Hydroxychloroquine Sulfate 200 Mg Tablet 200 Mg PO BID Folic Acid 1 Mg Tablet 1 Mg PO TID Restasis (Cyclosporine) 1 Each Droperette 1 Drop EACHEYE BID Vitamin D3 (Cholecalciferol (Vitamin D3)) 5,000 Unit Tablet 5,000 Unit PO DAILY [facility]vs Calcium Citrate + D Tab (Ca Citrate/Mgox/Vit D3/B6/Min) 1 Each Tablet 1 Each PO BID [facility]vs Calcium Citrate + D Tab (Ca Citrate/Mgox/Vit D3/B6/Min) 1 Each Tablet 1 Each PO Lorcet 5-325 mg Tablet (Hydrocodone/Acetaminophen) 1 Each Tablet Leflunomide 20 Mg Tablet Metoprolol Succinate ( Xl ) (Metoprolol Succinate) 25 Mg Tab.er.24h Paroxetine Hcl 40 Mg Tablet Ondansetron Hcl 8 Mg Tablet Gabapentin 100 Mg Capsule Bupropion Hcl Sr (Bupropion Hcl) 100 Mg Tablet.er Clopidogrel (Clopidogrel Bisulfate) 75 Mg Tablet Furosemide 20 Mg Tablet 10 Mg PO DAILY Tiazac (Diltiazem Hcl) 120 Mg Capsule.er 240 Mg PO Evoxac (Cevimeline Hcl) 30 Mg Capsule 30 Mg PO Acetaminophen 500 Mg Tablet 1 Tab PO BID Vitals/I & O Vital Sign - Last 24 Hours 10/19/17 10/19/17 10/19/17 10/19/17 14:10 15:00 15:10 19:00 Temp 97.7 97.7 97.7 97.7 Pulse 84 98 Resp 16 20 16 20 B/P (MAP) 134/65 (88) 127/69 (88) Pulse Ox 95 100 95 97 O2 Delivery Room Air Room Air Room Air 10/19/17 10/19/17 10/19/17 10/19/17 20:00 21:00 22:00 23:00 Temp 97.5 97.5 Pulse 91 Resp 20 B/P (MAP) 142/78 (99) Pulse Ox 94 O2 Delivery Room Air Room Air Room Air Room Air 10/20/17 10/20/17 10/20/17 10/20/17 03:00 07:00 08:02 10:53 Temp 97.5 97.6 97.5 97.6 Pulse 82 81 81 Resp 20 18 B/P (MAP) 159/82 (107) 159/88 (111) 159/88 Pulse Ox 96 95 O2 Delivery Room Air Room Air Room Air 10/20/17 10/20/17 10:54 11:00 Temp 97.8 97.8 Pulse 81 85 Resp 18 B/P (MAP) 159/88 142/83 (102) Pulse Ox 98 O2 Delivery Room Air Intake and Output 10/19/17 10/19/17 10/20/17 14:59 22:59 06:59 Intake Total 1500 ml 1070 ml 520 ml Output Total 350 ml 1225 ml Balance 1150 ml -155 ml 520 ml Nutrition Consultation Dietary Evaluation: Recommendations by RD: Increase Calorie Intake, Protein supplementation Comments: boost plus, boost pudding, magic cup w/ meals Expected Outcomes/Goals: to meet > 75% est nutr needs Malnutrition Findings: Body Fat Depletion (Non Severe: Mod to Severe Weight Status: Underweight NITHYA ZAMUDIO MD Oct 20, 2017 12:16
--- NOTE | 2017-10-20 12:50 | PDOC ---
SUBJECTIVE ROS F/u pfor CHEIKH - resolved [place] ABN - Low Na doing better, eating well OBJECTIVE Vital Signs Vital Signs Date Time Temp Pulse Resp B/P (MAP) Pulse Ox O2 Delivery O2 Flow Rate FiO2 10/20/17 11:00 97.8 85 18 142/83 (102) 98 Room Air 97.8 I & 0 Intake and Output 10/20/17 07:00 Intake Total 3090 ml Output Total 1575 ml Balance 1515 ml Intake Oral 3090 ml Output Urine Total 1575 ml # Voids 1 # Bowel Movements 1 PHYSICAL EXAM Physical Exam General Appearance: flat affect Awake: Alert Oriented x 2 Neck: No JVD or JVP Chest: CTA [place] Heart: S1 S2 Abdomen - Soft NTND Extremities - No Edema DIAGNOSIS/ASSESSMENT Assessment & Plan CHEIKH - resolved HypoNatremia - Stop PPn and watch. PO intake is good. Anticipate self correction. Problems: COMMENT/RELEVANT DATA Meds Current Medications Medications (Trade) Dose Ordered Sig/Kayla Start Time Stop Time Status Last Admin Dose Admin Acetaminophen (Tylenol) 500 mg BID 10/16/17 22:00 10/20/17 10:53 500 MG Acetaminophen/ Hydrocodone Bitart (Lortab 5/325) 1 tab Q6HRS PRN 10/16/17 21:30 10/19/17 21:00 1 TAB Amino Acids/ Glycerin/ Electrolytes 1,000 ml @ 80 mls/hr [id number] 10/17/17 11:45 10/19/17 22:30 80 MLS/HR Amylase/Lipase/ Protease (Zenpep 10,000) 2 cap TIDWMEALS 10/18/17 12:00 10/20/17 10:53 2 CAP Bupropion HCl (Wellbutrin Sr) 100 mg DAILY 10/17/17 09:00 10/20/17 10:54 100 MG Calcium Carbonate/ Glycine (Tums) 500 mg PRN Q3HRS PRN 10/16/17 20:45 10/20/17 10:53 500 MG Calcium/Vitamin D (Oscal D 500mg/ 200uts) 1 tab BIDWMEALS 10/17/17 08:00 10/20/17 11:01 1 TAB Clopidogrel Bisulfate (Plavix) 75 mg DAILY 10/17/17 09:00 10/20/17 10:54 75 MG Cyclosporine (Restasis) 1 drop BID 10/17/17 09:00 10/19/17 21:01 1 DROP Dexamethasone (Decadron) 40 mg DAILY 10/19/17 09:00 10/23/17 07:00 10/20/17 10:55 40 MG Diltiazem HCl (Cardizem 24hr Cd) 240 mg DAILY 10/17/17 09:00 10/20/17 10:54 240 MG Dronabinol (Marinol) 2.5 mg BIDACLD 10/17/17 16:30 10/20/17 10:54 2.5 MG Folic Acid (Folic Acid) 1 mg TID 10/16/17 22:00 10/20/17 10:54 1 MG Gabapentin (Neurontin) 200 mg QHS 10/16/17 22:00 10/19/17 21:01 200 MG Heparin Sodium (Porcine) (Heparin Sq) 5,000 unit Q12HR 10/17/17 09:00 10/20/17 11:18 5,000 UNIT Hydroxyzine HCl (Atarax) 10 mg PRN Q6HRS PRN 10/16/17 21:30 Info (Do NOT chart on this entry -- for MONITORING) 1 each PRN DAILY PRN 10/18/17 16:45 10/20/17 16:44 Iohexol (Omnipaque 240 Mg/ml) 50 ml 1X ONCE 10/18/17 16:45 10/18/17 16:46 DC 10/18/17 16:43 50 ML Iohexol (Omnipaque 300 Mg/ml) 60 ml 1X ONCE 10/18/17 16:45 10/18/17 16:46 DC 10/18/17 16:43 60 ML Latanoprost (Xalatan) 1 drop HS 10/16/17 22:00 10/19/17 21:37 1 DROP Magnesium Sulfate/ Dextrose 50 ml @ 25 mls/hr 1X ONCE 10/17/17 11:45 10/17/17 13:44 DC 10/17/17 12:05 25 MLS/HR Metoprolol Succinate (Toprol Xl) 25 mg DAILY 10/17/17 09:00 UNV Multivitamins (Thera M Plus) 1 tab DAILY 10/17/17 09:00 10/20/17 10:54 1 TAB Ondansetron HCl (Zofran Odt) 4 mg PRN Q6HRS PRN 10/16/17 21:30 Pantoprazole Sodium (Protonix) 40 mg BIDAC 10/17/17 16:30 10/20/17 10:53 40 MG Paroxetine HCl (Paxil) 20 mg DAILY 10/17/17 09:00 10/20/17 10:54 20 MG Prochlorperazine Edisylate (Compazine) 10 mg PRN Q6HRS PRN 10/16/17 20:45 Psyllium Hydrophilic Mucilloid (Metamucil Fiber Packet) 1 pkt DAILY 10/17/17 09:00 10/19/17 09:27 1 PKT Sodium Chloride 1,000 ml @ 100 mls/hr Q10H 10/16/17 20:36 10/17/17 06:35 DC 10/16/17 22:03 100 MLS/HR Tramadol HCl (Ultram) 50 mg Q4H PRN 10/16/17 21:30 Lab Laboratory Tests Test 10/20/17 04:00 White Blood Count 6.3 x10^3/uL (4.0-11.0) Red Blood Count 2.79 x10^6/uL (3.50-5.40) Hemoglobin 8.4 g/dL (12.0-15.5) Hematocrit 25.6 % (36.0-47.0) Mean Corpuscular Volume 92 fL (79-100) Mean Corpuscular Hemoglobin 30 pg (25-35) Mean Corpuscular Hemoglobin Concent 33 g/dL (31-37) Red Cell Distribution Width 14.6 % (11.5-14.5) Platelet Count 637 x10^3/uL (140-400) Neutrophils (%) (Auto) 89 % (31-73) Lymphocytes (%) (Auto) 9 % (24-48) Monocytes (%) (Auto) 1 % (0-9) Eosinophils (%) (Auto) 0 % (0-3) Basophils (%) (Auto) 0 % (0-3) Neutrophils # (Auto) 5.6 x10^3uL (1.8-7.7) Lymphocytes # (Auto) 0.6 x10^3/uL (1.0-4.8) Monocytes # (Auto) 0.1 x10^3/uL (0.0-1.1) Eosinophils # (Auto) 0.0 x10^3/uL (0.0-0.7) Basophils # (Auto) 0.0 x10^3/uL (0.0-0.2) Segmented Neutrophils % 88 % (35-66) Band Neutrophils % 2 % (0-9) Lymphocytes % 9 % (24-48) Monocytes % 1 % (0-10) Platelet Estimate Increased (ADEQUATE) Large Platelets Present Hypochromasia Slight Anisocytosis Slight Sodium Level 129 mmol/L (136-145) Potassium Level 4.9 mmol/L (3.5-5.1) Chloride Level 96 mmol/L (98-107) Carbon Dioxide Level 21 mmol/L (21-32) Anion Gap 12 (6-14) Blood Urea Nitrogen 43 mg/dL (7-20) Creatinine 1.1 mg/dL (0.6-1.0) Estimated GFR (Cockcroft-Gault) 48.6 Glucose Level 134 mg/dL (70-99) Calcium Level 9.1 mg/dL (8.5-10.1) Ferritin 65 ng/mL (8-252) NAZ TORRES MD Oct 20, 2017 12:50
[2017-10-20] MEDS: LATANOPROST 0.005% OPHTH SOLUTION 2.5ML BOTTLE. OU SCH (13:07)
[2017-10-20 15:00] VITALS: BP 145/79
[2017-10-20 15:23] LABS: CA 19-9 21 U/mL (0-35)
[2017-10-20 19:00] VITALS: BP 147/70
[2017-10-20] MEDS ORDERED: ENOXAPARIN 40 MG/0.4 ML SYRINGE. SQ SCH (21:00)
[2017-10-20] MEDS: GABAPENTIN 100 MG CAPSULE. PO SCH (21:07)
[2017-10-20] MEDS: HYDROcodone/APAP 5/325MG 1 TAB TABLET PO PRN (21:08)
[2017-10-20 23:05] VITALS: BP 129/61
[2017-10-21 03:00] VITALS: BP_SYST 108; BP_SYST 140; BP_DIAS 67; BP_DIAS 74
[2017-10-21 04:32] LABS: BASO % 0 % (0-3); EOS % 0 % (0-3); HEMATOCRIT 24.3 % (36.0-47.0); HEMOGLOBIN 7.9 g/dL (12.0-15.5); LYMPH # 0.4 x10^3/uL (1.0-4.8); LYMPH % 5 % (24-48); MEAN CORPUSCULAR HEMOGLOBIN 30 pg (25-35); MEAN CORPUSCULAR HGB CONC 33 g/dL (31-37); MEAN CORPUSCULAR VOLUME 92 fL (79-100); MONO % 2 % (0-9); NEUT % 93 % (31-73); PLATELET COUNT 644 x10^3/uL (140-400); RED BLOOD COUNT 2.63 x10^6/uL (3.50-5.40); RED CELL DISTRIBUTION WIDTH 14.7 % (11.5-14.5); WHITE BLOOD COUNT 8.2 x10^3/uL (4.0-11.0)
[2017-10-21 04:50] LABS: CALCIUM 8.3 mg/dL (8.5-10.1); GFR 54.2; POTASSIUM 4.6 mmol/L (3.5-5.1)
[2017-10-21 06:50] VITALS: BP 170/77
--- NOTE | 2017-10-21 08:55 | PDOC ---
PROGRESS NOTES Subjective Subjective HPI -f/u of Panc mass/CLL ROS - appetite better Objective Objective Vital Signs Date Time Temp Pulse Resp B/P (MAP) Pulse Ox O2 Delivery O2 Flow Rate FiO2 10/21/17 07:29 Room Air 10/21/17 06:50 98.2 77 18 170/77 (108) 97 98.2 Intake and Output 10/21/17 07:00 Intake Total 800 ml Output Total 2250 ml Balance -1450 ml Intake Oral 800 ml Output Urine Total 2250 ml Physical Exam Heart: Normal S1, Normal S2 General: Alert, Oriented X3 Lungs: Clear to auscultation Neuro: Normal speech Psych/Mental Status: Mental status NL Assessment Assessment A&P 72 yo F w/ Failure to thrive symptoms, malnourishment, underlying CLL, known panc mass for many years. 1.Panc mass - she will continue to f/u with Dr Lou at . Repeat EUS/ERCP could be considered at . CA 19-9 is also normal. 2. CLL - stable. f/u with Dr Powers 3. Anemia - monitor 7.9 4. Thrombocytosis - monitor cbc [address] Mcnair ordered decadron 40mg PO daily x 4 days for both autoimmune disorders and appetite stimulation, as well as pain relief. Comment Review of Relevant I have reviewed the following items sawyer (where applicable) has been applied. Labs Laboratory Tests Test 10/20/17 04:00 10/21/17 02:40 10/21/17 03:40 White Blood Count 6.3 x10^3/uL (4.0-11.0) 8.2 x10^3/uL (4.0-11.0) Red Blood Count 2.79 x10^6/uL (3.50-5.40) 2.63 x10^6/uL (3.50-5.40) Hemoglobin 8.4 g/dL (12.0-15.5) 7.9 g/dL (12.0-15.5) Hematocrit 25.6 % (36.0-47.0) 24.3 % (36.0-47.0) Mean Corpuscular Volume 92 fL (79-100) 92 fL (79-100) Mean Corpuscular Hemoglobin 30 pg (25-35) 30 pg (25-35) Mean Corpuscular Hemoglobin Concent 33 g/dL (31-37) 33 g/dL (31-37) Red Cell Distribution Width 14.6 % (11.5-14.5) 14.7 % (11.5-14.5) Platelet Count 637 x10^3/uL (140-400) 644 x10^3/uL (140-400) Neutrophils (%) (Auto) 89 % (31-73) 93 % (31-73) Lymphocytes (%) (Auto) 9 % (24-48) 5 % (24-48) Monocytes (%) (Auto) 1 % (0-9) 2 % (0-9) Eosinophils (%) (Auto) 0 % (0-3) 0 % (0-3) Basophils (%) (Auto) 0 % (0-3) 0 % (0-3) Neutrophils # (Auto) 5.6 x10^3uL (1.8-7.7) 7.6 x10^3uL (1.8-7.7) Lymphocytes # (Auto) 0.6 x10^3/uL (1.0-4.8) 0.4 x10^3/uL (1.0-4.8) Monocytes # (Auto) 0.1 x10^3/uL (0.0-1.1) 0.2 x10^3/uL (0.0-1.1) Eosinophils # (Auto) 0.0 x10^3/uL (0.0-0.7) 0.0 x10^3/uL (0.0-0.7) Basophils # (Auto) 0.0 x10^3/uL (0.0-0.2) 0.0 x10^3/uL (0.0-0.2) Segmented Neutrophils % 88 % (35-66) Band Neutrophils % 2 % (0-9) Lymphocytes % 9 % (24-48) Monocytes % 1 % (0-10) Platelet Estimate Increased (ADEQUATE) Large Platelets Present Hypochromasia Slight Anisocytosis Slight Sodium Level 129 mmol/L (136-145) 132 mmol/L (136-145) Potassium Level 4.9 mmol/L (3.5-5.1) 4.6 mmol/L (3.5-5.1) Chloride Level 96 mmol/L (98-107) 99 mmol/L (98-107) Carbon Dioxide Level 21 mmol/L (21-32) 22 mmol/L (21-32) Anion Gap 12 (6-14) 11 (6-14) Blood Urea Nitrogen 43 mg/dL (7-20) 50 mg/dL (7-20) Creatinine 1.1 mg/dL (0.6-1.0) 1.0 mg/dL (0.6-1.0) Estimated GFR (Cockcroft-Gault) 48.6 54.2 Glucose Level 134 mg/dL (70-99) 120 mg/dL (70-99) Calcium Level 9.1 mg/dL (8.5-10.1) 8.3 mg/dL (8.5-10.1) Ferritin 65 ng/mL (8-252) Laboratory Tests Test 10/21/17 02:40 10/21/17 03:40 Sodium Level 132 mmol/L (136-145) Potassium Level 4.6 mmol/L (3.5-5.1) Chloride Level 99 mmol/L (98-107) Carbon Dioxide Level 22 mmol/L (21-32) Anion Gap 11 (6-14) Blood Urea Nitrogen 50 mg/dL (7-20) Creatinine 1.0 mg/dL (0.6-1.0) Estimated GFR (Cockcroft-Gault) 54.2 Glucose Level 120 mg/dL (70-99) Calcium Level 8.3 mg/dL (8.5-10.1) White Blood Count 8.2 x10^3/uL (4.0-11.0) Red Blood Count 2.63 x10^6/uL (3.50-5.40) Hemoglobin 7.9 g/dL (12.0-15.5) Hematocrit 24.3 % (36.0-47.0) Mean Corpuscular Volume 92 fL (79-100) Mean Corpuscular Hemoglobin 30 pg (25-35) Mean Corpuscular Hemoglobin Concent 33 g/dL (31-37) Red Cell Distribution Width 14.7 % (11.5-14.5) Platelet Count 644 x10^3/uL (140-400) Neutrophils (%) (Auto) 93 % (31-73) Lymphocytes (%) (Auto) 5 % (24-48) Monocytes (%) (Auto) 2 % (0-9) Eosinophils (%) (Auto) 0 % (0-3) Basophils (%) (Auto) 0 % (0-3) Neutrophils # (Auto) 7.6 x10^3uL (1.8-7.7) Lymphocytes # (Auto) 0.4 x10^3/uL (1.0-4.8) Monocytes # (Auto) 0.2 x10^3/uL (0.0-1.1) Eosinophils # (Auto) 0.0 x10^3/uL (0.0-0.7) Basophils # (Auto) 0.0 x10^3/uL (0.0-0.2) Medications Current Medications Sodium Chloride 1,000 ml @ 100 mls/hr Q10H IV Last administered on 10/16/17 22:03; Start 10/16/17 at 20:36; Stop 10/17/17 at 06:35; Status DC Prochlorperazine Edisylate (Compazine) 10 mg PRN Q6HRS PRN IV NAUSEA/VOMITING; Start 10/16/17 at 20:45 Calcium Carbonate/ Glycine (Tums) 500 mg PRN Q3HRS PRN PO UPSET STOMACH Last administered on 10/20/17 10:53; Start 10/16/17 at 20:45 Heparin Sodium (Porcine) (Heparin Sq) 5,000 unit Q12HR SQ Last administered on 10/20/17 11:18; Start 10/17/17 at 09:00; Stop 10/20/17 at 16:39; Status DC Acetaminophen (Tylenol) 500 mg BID PO Last administered on 10/20/17 21:07; Start 10/16/17 at 22:00 Bupropion HCl (Wellbutrin Sr) 100 mg DAILY PO Last administered on 10/20/17 10:54; Start 10/17/17 at 09:00 Clopidogrel Bisulfate (Plavix) 75 mg DAILY PO Last administered on 10/20/17 10:54; Start 10/17/17 at 09:00 Cyclosporine (Restasis) 1 drop BID OU Last administered on 10/20/17 21:07; Start 10/17/17 at 09:00 Folic Acid (Folic Acid) 1 mg TID PO Last administered on 10/20/17 21:07; Start 10/16/17 at 22:00 Gabapentin (Neurontin) 200 mg QHS PO Last administered on 10/20/17 21:07; Start 10/16/17 at 22:00 Acetaminophen/ Hydrocodone Bitart (Lortab 5/325) 1 tab Q6HRS PRN PO MODERATE - SEVERE PAIN Last administered on 10/20/17 21:08; Start 10/16/17 at 21:30 Latanoprost (Xalatan) 1 drop HS OU Last administered on 10/20/17 13:07; Start 10/16/17 at 22:00 Metoprolol Succinate (Toprol Xl) 25 mg DAILY PO Last administered on 10:53; Start 10/17/17 at 09:00 Metoprolol Succinate (Toprol Xl) 25 mg DAILY PO ; Start 10/17/17 at 09:00; Status UNV Tramadol HCl (Ultram) 50 mg Q4H PRN PO MILD PAIN; Start 10/16/17 at 21:30 Calcium/Vitamin D (Oscal D 500mg/ 200uts) 1 tab BIDWMEALS PO Last administered on 10/20/17 17:10; Start 10/17/17 at 08:00 Multivitamins (Thera M Plus) 1 tab DAILY PO Last administered on 10/20/17 10: 54; Start 10/17/17 at 09:00 Hydroxyzine HCl (Atarax) 10 mg PRN Q6HRS PRN PO ITCHING; Start 10/16/17 at 21: 30 Ondansetron HCl (Zofran Odt) 4 mg PRN Q6HRS PRN PO NAUSEA/VOMITING (1st Choice) ; Start 10/16/17 at 21:30 Paroxetine HCl (Paxil) 20 mg DAILY PO Last administered on 10/20/17 10:54; Start 10/17/17 at 09:00 Psyllium Hydrophilic Mucilloid (Metamucil Fiber Packet) 1 pkt DAILY PO Last administered on 10/19/17 09:27; Start 10/17/17 at 09:00 Diltiazem HCl (Cardizem 24hr Cd) 240 mg DAILY PO Last administered on 10:54; Start 10/17/17 at 09:00 Magnesium Sulfate/ Dextrose 50 ml @ 25 mls/hr 1X ONCE IV Last administered on 10/17/17 12:05; Start 10/17/17 at 11:45; Stop 10/17/17 at 13:44; Status DC Amino Acids/ Glycerin/ Electrolytes 1,000 ml @ 80 mls/hr [id number] IV Last administered on 10/19/17 22:30; Start 10/17/17 at 11:45; Stop 10/20/17 at 12 :51; Status DC Dronabinol (Marinol) 2.5 mg BIDACLD PO Last administered on 10/20/17 17:10; Start 10/17/17 at 16:30 Pantoprazole Sodium (Protonix) 40 mg BIDAC PO Last administered on 10/20/17 17:10; Start 10/17/17 at 16:30 Iohexol (Omnipaque 300 Mg/ml) 75 ml 1X ONCE IV ; Start 10/18/17 at 11:00; Stop 10/18/17 at 11:01; Status DC Iohexol (Omnipaque 240 Mg/ml) 50 ml 1X ONCE PO ; Start 10/18/17 at 11:00; Stop 10/18/17 at 11:01; Status DC Info (Do NOT chart on this entry -- for MONITORING) 1 each PRN DAILY PRN MC SEE COMMENTS; Start 10/18/17 at 11:00; Stop 10/20/17 at 10:59; Status DC Amylase/Lipase/ Protease (Zenpep 10,000) 2 cap TIDWMEALS PO Last administered on 10/20/17 17:11; Start 10/18/17 at 12:00 Iohexol (Omnipaque 300 Mg/ml) 60 ml 1X ONCE IV Last administered on 16:43; Start 10/18/17 at 16:45; Stop 10/18/17 at 16:46; Status DC Iohexol (Omnipaque 240 Mg/ml) 50 ml 1X ONCE PO Last administered on 16:43; Start 10/18/17 at 16:45; Stop 10/18/17 at 16:46; Status DC Iohexol (Omnipaque 240 Mg/ml) 50 ml 1X ONCE PO Last administered on 12/16/ 17at 16:43; Start 10/18/17 at 16:45; Stop 10/18/17 at 16:46; Status DC Info (Do NOT chart on this entry -- for MONITORING) 1 each PRN DAILY PRN MC SEE COMMENTS; Start 10/18/17 at 16:45; Stop 10/20/17 at 16:44; Status DC Dexamethasone (Decadron) 40 mg DAILY PO Last administered on 10/20/17t 10:55; Start 10/19/17 at 09:00; Stop 10/23/17 at 07:00 Enoxaparin Sodium (Lovenox Per Pharmacy Prophylaxis Dosing) 1 each PRN DAILY PRN MC SEE COMMENTS; Start 10/21/17 at 09:00 Enoxaparin Sodium (Lovenox 40mg Syringe) 40 mg Q24H SQ ; Start 10/20/17 at 21: 00 Active Scripts Active Reported Triamcinolone Acetonide 0.1% Oint (Triamcinolone Acetonide) 15 Gm Oint...g. 1 Tali TP BID MIX WITH EUCERIN DIRECTED BY PHYSICIAN Tramadol Hcl 50 Mg Tablet 50 Mg PO Q4H PRN Tizanidine Hcl 4 Mg Capsule 8 Mg PO HS Tizanidine Hcl 2 Mg Capsule 2 Mg PO BID Spironolactone 25 Mg Tablet 25 Mg PO DAILY Metamucil Powder (Psyllium Seed (with Sugar)) 575 Gm Powder 575 Gm PO One Daily (Multivitamin) 1 Each Tablet 1 Each PO DAILY Toprol Xl (Metoprolol Succinate) 25 Mg Tab.er.24h 25 Mg PO DAILY Latanoprost 2.5 Ml Drops 1 Drop OP HS Hydroxyzine Hcl 25 Mg Tablet 25 Mg PO Hydroxychloroquine Sulfate 200 Mg Tablet 200 Mg PO BID Folic Acid 1 Mg Tablet 1 Mg PO TID Restasis (Cyclosporine) 1 Each Droperette 1 Drop EACHEYE BID Vitamin D3 (Cholecalciferol (Vitamin D3)) 5,000 Unit Tablet 5,000 Unit PO DAILY [facility] Calcium Citrate + D Tab (Ca Citrate/Mgox/Vit D3/B6/Min) 1 Each Tablet 1 Each PO BID [facility] Calcium Citrate + D Tab (Ca Citrate/Mgox/Vit D3/B6/Min) 1 Each Tablet 1 Each PO Lorcet 5-325 mg Tablet (Hydrocodone/Acetaminophen) 1 Each Tablet Leflunomide 20 Mg Tablet Metoprolol Succinate ( Xl ) (Metoprolol Succinate) 25 Mg Tab.er.24h Paroxetine Hcl 40 Mg Tablet Ondansetron Hcl 8 Mg Tablet Gabapentin 100 Mg Capsule Bupropion Hcl Sr (Bupropion Hcl) 100 Mg Tablet.er Clopidogrel (Clopidogrel Bisulfate) 75 Mg Tablet Furosemide 20 Mg Tablet 10 Mg PO DAILY Tiazac (Diltiazem Hcl) 120 Mg Capsule.er 240 Mg PO Evoxac (Cevimeline Hcl) 30 Mg Capsule 30 Mg PO Acetaminophen 500 Mg Tablet 1 Tab PO BID Vitals/I & O Vital Sign - Last 24 Hours 10/20/17 10/20/17 10/20/17 10/20/17 10:53 10:54 11:00 15:00 Temp 97.8 97.9 97.8 97.9 Pulse 81 81 85 94 Resp 18 18 B/P (MAP) 159/88 159/88 142/83 (102) 145/79 (101) Pulse Ox 98 95 O2 Delivery Room Air Room Air 10/20/17 10/20/17 10/20/17 10/20/17 19:00 19:56 21:08 22:00 Temp 98.2 98.2 Pulse 81 Resp 19 B/P (MAP) 147/70 (95) Pulse Ox 96 O2 Delivery Room Air Room Air Room Air Room Air 10/20/17 10/21/17 10/21/17 10/21/17 23:05 03:00 06:50 07:29 Temp 98.4 98.1 98.2 98.4 98.1 98.2 Pulse 83 73 77 Resp 16 18 18 B/P (MAP) 129/61 (83) 140/74 (96) 170/77 (108) Pulse Ox 95 94 97 O2 Delivery Room Air Room Air Room Air Room Air Intake and Output 10/20/17 10/20/17 10/21/17 15:00 23:00 07:00 Intake Total 450 ml 350 ml Output Total 1300 ml 950 ml Balance -850 ml -600 ml Nutrition Consultation Dietary Evaluation: Recommendations by RD: Increase Calorie Intake, Protein supplementation Comments: continue boost plus, boost pudding, magic cup w/ meals Expected Outcomes/Goals: to meet > 75% est nutr needs Malnutrition Findings: Body Fat Depletion (Non Severe: Mod to Severe Weight Status: Underweight NANETTE WEEKS MD Oct 21, 2017 08:55
[2017-10-21] MEDS: DEXAMETHASONE 4 MG TABLET PO SCH (08:59)
[2017-10-21] MEDS: PANTOPRAZOLE 40 MG TABLET.DR. PO SCH (09:00)
[2017-10-21] MEDS: PSYLLIUM HUSK (SUGAR FREE) 1 PKT PACKET PO SCH (09:00)
[2017-10-21] MEDS: PARoxetine 20 MG TABLET PO SCH (09:00)
[2017-10-21] MEDS: LIPASE/PROTEAS/AMYLAS 10/34/55 CAPSULE.DR. PO SCH ×2 (09:00→12:35)
[2017-10-21] MEDS: buPROPion SR 100 MG TABLET.SA. PO SCH (09:00)
[2017-10-21] MEDS: CLOPIDOGREL BISULFATE 75 MG TABLET PO SCH (09:00)
[2017-10-21] MEDS: MULTIVITAMIN with MINERAL TABLET. PO SCH (09:01)
[2017-10-21] MEDS: METOPROLOL SUCC 24HR ER 25 MG TAB.ER.24H. PO SCH (09:01)
[2017-10-21] MEDS: CALCIUM CARB/VIT D3 500/200 TABLET. PO SCH (09:01)
[2017-10-21] MEDS: FOLIC ACID 1 MG TABLET. PO SCH ×2 (09:01→15:28)
[2017-10-21] MEDS: ACETAMINOPHEN 500 MG TABLET PO SCH (09:01)
--- NOTE | 2017-10-21 10:04 | PDOC ---
Subjective: Subjective: Feels much better, says going to rehab today. Objective: Vital Signs: Vital Signs Date Time Temp Pulse Resp B/P (MAP) Pulse Ox O2 Delivery O2 Flow Rate FiO2 10/21/17 09:01 77 170/77 10/21/17 07:29 Room Air 10/21/17 06:50 98.2 18 97 98.2 Labs: Laboratory Tests Test 10/21/17 02:40 10/21/17 03:40 Sodium Level 132 mmol/L Potassium Level 4.6 mmol/L Chloride Level 99 mmol/L Carbon Dioxide Level 22 mmol/L Anion Gap 11 Blood Urea Nitrogen 50 mg/dL Creatinine 1.0 mg/dL Estimated GFR (Cockcroft-Gault) 54.2 Glucose Level 120 mg/dL Calcium Level 8.3 mg/dL White Blood Count 8.2 x10^3/uL Red Blood Count 2.63 x10^6/uL Hemoglobin 7.9 g/dL Hematocrit 24.3 % Mean Corpuscular Volume 92 fL Mean Corpuscular Hemoglobin 30 pg Mean Corpuscular Hemoglobin Concent 33 g/dL Red Cell Distribution Width 14.7 % Platelet Count 644 x10^3/uL Neutrophils (%) (Auto) 93 % Lymphocytes (%) (Auto) 5 % Monocytes (%) (Auto) 2 % Eosinophils (%) (Auto) 0 % Basophils (%) (Auto) 0 % Neutrophils # (Auto) 7.6 x10^3uL Lymphocytes # (Auto) 0.4 x10^3/uL Monocytes # (Auto) 0.2 x10^3/uL Eosinophils # (Auto) 0.0 x10^3/uL Basophils # (Auto) 0.0 x10^3/uL Platelet Estimate Pending PE: GEN: NAD, breakfast tray empty LUNGS: CTAB HEART: RRR ABD: NABS, S/ND/NT NEURO/PSYCH: A & O 3 A/P: Pancreatic tail cystic mass, pancreatic ductal dilatation -IgG 4 pending, [id number] WNL Anorexia - improved -- DC per primary, follow-up @ for EUS. MARGARITA MAYA Oct 21, 2017 10:04
[2017-10-21 10:38] VITALS: BP 136/76
--- NOTE | 2017-10-21 11:28 | PDOC ---
PROGRESS NOTES Chief Complaint Chief Complaint Weakness, FTT 1. FTT: weight loss and weakness, BMI 16 2. Anorexia: unclear etiology. med related vs mesenteric ischemia vs GI malignancy Onc consult has started decadron 3. CHEIKH: vasomotor improving with IVF 4. 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 Hypomagnesemia and hyponatremia 6. Anemia 7. RA 8. HTN History of Present Illness History of Present Illness Patient seen and examined. No acute events overnight. Patient states she is feeling better. Nurse at bedside states weakness is improving. Denies fevers/ chills, chest pain or shortness of breath. Patient would like to get discharged today to SNU. Vitals Vitals Vital Signs Date Time Temp Pulse Resp B/P (MAP) Pulse Ox O2 Delivery O2 Flow Rate FiO2 10/21/17 10:38 98.6 70 17 136/76 (96) 98 Room Air 98.6 Physical Exam Physical Exam cachectic General: Alert, Oriented X3 Heart: Normal S1, Normal S2 Lungs: Clear Abdomen: Normal bowel sounds, Soft, No tenderness, No hepatosplenomegaly, No masses Extremities: No clubbing, No cyanosis, No edema, Normal pulses, No tenderness/ swelling Skin: Other (plaques on B elbows) Labs LABS Laboratory Tests Test 10/21/17 02:40 10/21/17 03:40 Sodium Level 132 mmol/L (136-145) Potassium Level 4.6 mmol/L (3.5-5.1) Chloride Level 99 mmol/L (98-107) Carbon Dioxide Level 22 mmol/L (21-32) Anion Gap 11 (6-14) Blood Urea Nitrogen 50 mg/dL (7-20) Creatinine 1.0 mg/dL (0.6-1.0) Estimated GFR (Cockcroft-Gault) 54.2 Glucose Level 120 mg/dL (70-99) Calcium Level 8.3 mg/dL (8.5-10.1) White Blood Count 8.2 x10^3/uL (4.0-11.0) Red Blood Count 2.63 x10^6/uL (3.50-5.40) Hemoglobin 7.9 g/dL (12.0-15.5) Hematocrit 24.3 % (36.0-47.0) Mean Corpuscular Volume 92 fL (79-100) Mean Corpuscular Hemoglobin 30 pg (25-35) Mean Corpuscular Hemoglobin Concent 33 g/dL (31-37) Red Cell Distribution Width 14.7 % (11.5-14.5) Platelet Count 644 x10^3/uL (140-400) Neutrophils (%) (Auto) 93 % (31-73) Lymphocytes (%) (Auto) 5 % (24-48) Monocytes (%) (Auto) 2 % (0-9) Eosinophils (%) (Auto) 0 % (0-3) Basophils (%) (Auto) 0 % (0-3) Neutrophils # (Auto) 7.6 x10^3uL (1.8-7.7) Lymphocytes # (Auto) 0.4 x10^3/uL (1.0-4.8) Monocytes # (Auto) 0.2 x10^3/uL (0.0-1.1) Eosinophils # (Auto) 0.0 x10^3/uL (0.0-0.7) Basophils # (Auto) 0.0 x10^3/uL (0.0-0.2) Review of Systems Review of Systems Weakness improving. Denies shortness of breath or chest pain. Assessment and Plan Assessmemt and Plan Weakness, FTT 1. FTT: weight loss and weakness, BMI 16 2. Anorexia: unclear etiology. med related vs mesenteric ischemia vs GI malignancy Onc consult has started decadron 3. CHEIKH: vasomotor improving with IVF 4. 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 Hypomagnesemia and hyponatremia 6. Anemia 7. RA 8. HTN PLAN: Decadron treatment will finish today PT/OT PRN Narcotics Continue home medications Possible discharge today to SNU F/U outpatient with Dr. Lopez at Problems: Comment Review of Relevant I have reviewed the following items sawyer (where applicable) has been applied. Labs Laboratory Tests Test 10/20/17 04:00 10/21/17 02:40 10/21/17 03:40 White Blood Count 6.3 x10^3/uL (4.0-11.0) 8.2 x10^3/uL (4.0-11.0) Red Blood Count 2.79 x10^6/uL (3.50-5.40) 2.63 x10^6/uL (3.50-5.40) Hemoglobin 8.4 g/dL (12.0-15.5) 7.9 g/dL (12.0-15.5) Hematocrit 25.6 % (36.0-47.0) 24.3 % (36.0-47.0) Mean Corpuscular Volume 92 fL (79-100) 92 fL (79-100) Mean Corpuscular Hemoglobin 30 pg (25-35) 30 pg (25-35) Mean Corpuscular Hemoglobin Concent 33 g/dL (31-37) 33 g/dL (31-37) Red Cell Distribution Width 14.6 % (11.5-14.5) 14.7 % (11.5-14.5) Platelet Count 637 x10^3/uL (140-400) 644 x10^3/uL (140-400) Neutrophils (%) (Auto) 89 % (31-73) 93 % (31-73) Lymphocytes (%) (Auto) 9 % (24-48) 5 % (24-48) Monocytes (%) (Auto) 1 % (0-9) 2 % (0-9) Eosinophils (%) (Auto) 0 % (0-3) 0 % (0-3) Basophils (%) (Auto) 0 % (0-3) 0 % (0-3) Neutrophils # (Auto) 5.6 x10^3uL (1.8-7.7) 7.6 x10^3uL (1.8-7.7) Lymphocytes # (Auto) 0.6 x10^3/uL (1.0-4.8) 0.4 x10^3/uL (1.0-4.8) Monocytes # (Auto) 0.1 x10^3/uL (0.0-1.1) 0.2 x10^3/uL (0.0-1.1) Eosinophils # (Auto) 0.0 x10^3/uL (0.0-0.7) 0.0 x10^3/uL (0.0-0.7) Basophils # (Auto) 0.0 x10^3/uL (0.0-0.2) 0.0 x10^3/uL (0.0-0.2) Segmented Neutrophils % 88 % (35-66) Band Neutrophils % 2 % (0-9) Lymphocytes % 9 % (24-48) Monocytes % 1 % (0-10) Platelet Estimate Increased (ADEQUATE) Large Platelets Present Hypochromasia Slight Anisocytosis Slight Sodium Level 129 mmol/L (136-145) 132 mmol/L (136-145) Potassium Level 4.9 mmol/L (3.5-5.1) 4.6 mmol/L (3.5-5.1) Chloride Level 96 mmol/L (98-107) 99 mmol/L (98-107) Carbon Dioxide Level 21 mmol/L (21-32) 22 mmol/L (21-32) Anion Gap 12 (6-14) 11 (6-14) Blood Urea Nitrogen 43 mg/dL (7-20) 50 mg/dL (7-20) Creatinine 1.1 mg/dL (0.6-1.0) 1.0 mg/dL (0.6-1.0) Estimated GFR (Cockcroft-Gault) 48.6 54.2 Glucose Level 134 mg/dL (70-99) 120 mg/dL (70-99) Calcium Level 9.1 mg/dL (8.5-10.1) 8.3 mg/dL (8.5-10.1) Ferritin 65 ng/mL (8-252) Laboratory Tests Test 10/21/17 02:40 10/21/17 03:40 Sodium Level 132 mmol/L (136-145) Potassium Level 4.6 mmol/L (3.5-5.1) Chloride Level 99 mmol/L (98-107) Carbon Dioxide Level 22 mmol/L (21-32) Anion Gap 11 (6-14) Blood Urea Nitrogen 50 mg/dL (7-20) Creatinine 1.0 mg/dL (0.6-1.0) Estimated GFR (Cockcroft-Gault) 54.2 Glucose Level 120 mg/dL (70-99) Calcium Level 8.3 mg/dL (8.5-10.1) White Blood Count 8.2 x10^3/uL (4.0-11.0) Red Blood Count 2.63 x10^6/uL (3.50-5.40) Hemoglobin 7.9 g/dL (12.0-15.5) Hematocrit 24.3 % (36.0-47.0) Mean Corpuscular Volume 92 fL (79-100) Mean Corpuscular Hemoglobin 30 pg (25-35) Mean Corpuscular Hemoglobin Concent 33 g/dL (31-37) Red Cell Distribution Width 14.7 % (11.5-14.5) Platelet Count 644 x10^3/uL (140-400) Neutrophils (%) (Auto) 93 % (31-73) Lymphocytes (%) (Auto) 5 % (24-48) Monocytes (%) (Auto) 2 % (0-9) Eosinophils (%) (Auto) 0 % (0-3) Basophils (%) (Auto) 0 % (0-3) Neutrophils # (Auto) 7.6 x10^3uL (1.8-7.7) Lymphocytes # (Auto) 0.4 x10^3/uL (1.0-4.8) Monocytes # (Auto) 0.2 x10^3/uL (0.0-1.1) Eosinophils # (Auto) 0.0 x10^3/uL (0.0-0.7) Basophils # (Auto) 0.0 x10^3/uL (0.0-0.2) Medications Current Medications Sodium Chloride 1,000 ml @ 100 mls/hr Q10H IV Last administered on 10/16/17 22:03; Start 10/16/17 at 20:36; Stop 10/17/17 at 06:35; Status DC Prochlorperazine Edisylate (Compazine) 10 mg PRN Q6HRS PRN IV NAUSEA/VOMITING; Start 10/16/17 at 20:45 Calcium Carbonate/ Glycine (Tums) 500 mg PRN Q3HRS PRN PO UPSET STOMACH Last administered on 10/20/17 10:53; Start 10/16/17 at 20:45 Heparin Sodium (Porcine) (Heparin Sq) 5,000 unit Q12HR SQ Last administered on 10/20/17 11:18; Start 10/17/17 at 09:00; Stop 10/20/17 at 16:39; Status DC Acetaminophen (Tylenol) 500 mg BID PO Last administered on 10/21/17 09:01; Start 10/16/17 at 22:00 Bupropion HCl (Wellbutrin Sr) 100 mg DAILY PO Last administered on 10/21/17 09:00; Start 10/17/17 at 09:00 Clopidogrel Bisulfate (Plavix) 75 mg DAILY PO Last administered on 10/21/17 09:00; Start 10/17/17 at 09:00 Cyclosporine (Restasis) 1 drop BID OU Last administered on 10/20/17 21:07; Start 10/17/17 at 09:00 Folic Acid (Folic Acid) 1 mg TID PO Last administered on 10/21/17 09:01; Start 10/16/17 at 22:00 Gabapentin (Neurontin) 200 mg QHS PO Last administered on 10/20/17 21:07; Start 10/16/17 at 22:00 Acetaminophen/ Hydrocodone Bitart (Lortab 5/325) 1 tab Q6HRS PRN PO MODERATE - SEVERE PAIN Last administered on 10/20/17 21:08; Start 10/16/17 at 21:30 Latanoprost (Xalatan) 1 drop HS OU Last administered on 10/20/17 13:07; Start 10/16/17 at 22:00 Metoprolol Succinate (Toprol Xl) 25 mg DAILY PO Last administered on 09:01; Start 10/17/17 at 09:00 Metoprolol Succinate (Toprol Xl) 25 mg DAILY PO ; Start 10/17/17 at 09:00; Status UNV Tramadol HCl (Ultram) 50 mg Q4H PRN PO MILD PAIN; Start 10/16/17 at 21:30 Calcium/Vitamin D (Oscal D 500mg/ 200uts) 1 tab BIDWMEALS PO Last administered on 10/21/17 09:01; Start 10/17/17 at 08:00 Multivitamins (Thera M Plus) 1 tab DAILY PO Last administered on 10/21/17 09: 01; Start 10/17/17 at 09:00 Hydroxyzine HCl (Atarax) 10 mg PRN Q6HRS PRN PO ITCHING; Start 10/16/17 at 21: 30 Ondansetron HCl (Zofran Odt) 4 mg PRN Q6HRS PRN PO NAUSEA/VOMITING (1st Choice) ; Start 10/16/17 at 21:30 Paroxetine HCl (Paxil) 20 mg DAILY PO Last administered on 10/21/17 09:00; Start 10/17/17 at 09:00 Psyllium Hydrophilic Mucilloid (Metamucil Fiber Packet) 1 pkt DAILY PO Last administered on 10/19/17 09:27; Start 10/17/17 at 09:00 Diltiazem HCl (Cardizem 24hr Cd) 240 mg DAILY PO Last administered on 09:00; Start 10/17/17 at 09:00 Magnesium Sulfate/ Dextrose 50 ml @ 25 mls/hr 1X ONCE IV Last administered on 10/17/17 12:05; Start 10/17/17 at 11:45; Stop 10/17/17 at 13:44; Status DC Amino Acids/ Glycerin/ Electrolytes 1,000 ml @ 80 mls/hr [id number] IV Last administered on 10/19/17 22:30; Start 10/17/17 at 11:45; Stop 10/20/17 at 12 :51; Status DC Dronabinol (Marinol) 2.5 mg BIDACLD PO Last administered on 10/20/17 17:10; Start 10/17/17 at 16:30 Pantoprazole Sodium (Protonix) 40 mg BIDAC PO Last administered on 10/21/17 09:00; Start 10/17/17 at 16:30 Iohexol (Omnipaque 300 Mg/ml) 75 ml 1X ONCE IV ; Start 10/18/17 at 11:00; Stop 10/18/17 at 11:01; Status DC Iohexol (Omnipaque 240 Mg/ml) 50 ml 1X ONCE PO ; Start 10/18/17 at 11:00; Stop 10/18/17 at 11:01; Status DC Info (Do NOT chart on this entry -- for MONITORING) 1 each PRN DAILY PRN MC SEE COMMENTS; Start 10/18/17 at 11:00; Stop 10/20/17 at 10:59; Status DC Amylase/Lipase/ Protease (Zenpep 10,000) 2 cap TIDWMEALS PO Last administered on 10/21/17 09:00; Start 10/18/17 at 12:00 Iohexol (Omnipaque 300 Mg/ml) 60 ml 1X ONCE IV Last administered on 16:43; Start 10/18/17 at 16:45; Stop 10/18/17 at 16:46; Status DC Iohexol (Omnipaque 240 Mg/ml) 50 ml 1X ONCE PO Last administered on 16:43; Start 10/18/17 at 16:45; Stop 10/18/17 at 16:46; Status DC Iohexol (Omnipaque 240 Mg/ml) 50 ml 1X ONCE PO Last administered on 16:43; Start 10/18/17 at 16:45; Stop 10/18/17 at 16:46; Status DC Info (Do NOT chart on this entry -- for MONITORING) 1 each PRN DAILY PRN MC SEE COMMENTS; Start 10/18/17 at 16:45; Stop 10/20/17 at 16:44; Status DC Dexamethasone (Decadron) 40 mg DAILY PO Last administered on 10/21/17 08:59; Start 10/19/17 at 09:00; Stop 10/23/17 at 07:00 Enoxaparin Sodium (Lovenox Per Pharmacy Prophylaxis Dosing) 1 each PRN DAILY PRN MC SEE COMMENTS; Start 10/21/17 at 09:00 Enoxaparin Sodium (Lovenox 40mg Syringe) 40 mg Q24H SQ ; Start 10/20/17 at 21: 00 Active Scripts Active Reported Triamcinolone Acetonide 0.1% Oint (Triamcinolone Acetonide) 15 Gm Oint...g. 1 Tali TP BID MIX WITH EUCERIN DIRECTED BY PHYSICIAN Tramadol Hcl 50 Mg Tablet 50 Mg PO Q4H PRN Tizanidine Hcl 4 Mg Capsule 8 Mg PO HS Tizanidine Hcl 2 Mg Capsule 2 Mg PO BID Spironolactone 25 Mg Tablet 25 Mg PO DAILY Metamucil Powder (Psyllium Seed (with Sugar)) 575 Gm Powder 575 Gm PO One Daily (Multivitamin) 1 Each Tablet 1 Each PO DAILY Toprol Xl (Metoprolol Succinate) 25 Mg Tab.er.24h 25 Mg PO DAILY Latanoprost 2.5 Ml Drops 1 Drop OP HS Hydroxyzine Hcl 25 Mg Tablet 25 Mg PO Hydroxychloroquine Sulfate 200 Mg Tablet 200 Mg PO BID Folic Acid 1 Mg Tablet 1 Mg PO TID Restasis (Cyclosporine) 1 Each Droperette 1 Drop EACHEYE BID Vitamin D3 (Cholecalciferol (Vitamin D3)) 5,000 Unit Tablet 5,000 Unit PO DAILY [facility] Calcium Citrate + D Tab (Ca Citrate/Mgox/Vit D3/B6/Min) 1 Each Tablet 1 Each PO BID [facility] Calcium Citrate + D Tab (Ca Citrate/Mgox/Vit D3/B6/Min) 1 Each Tablet 1 Each PO Lorcet 5-325 mg Tablet (Hydrocodone/Acetaminophen) 1 Each Tablet Leflunomide 20 Mg Tablet Metoprolol Succinate ( Xl ) (Metoprolol Succinate) 25 Mg Tab.er.24h Paroxetine Hcl 40 Mg Tablet Ondansetron Hcl 8 Mg Tablet Gabapentin 100 Mg Capsule Bupropion Hcl Sr (Bupropion Hcl) 100 Mg Tablet.er Clopidogrel (Clopidogrel Bisulfate) 75 Mg Tablet Furosemide 20 Mg Tablet 10 Mg PO DAILY Tiazac (Diltiazem Hcl) 120 Mg Capsule.er 240 Mg PO Evoxac (Cevimeline Hcl) 30 Mg Capsule 30 Mg PO Acetaminophen 500 Mg Tablet 1 Tab PO BID Vitals/I & O Vital Sign - Last 24 Hours 10/20/17 10/20/17 10/20/17 10/20/17 15:00 19:00 19:56 21:08 Temp 97.9 98.2 97.9 98.2 Pulse 94 81 Resp 18 19 B/P (MAP) 145/79 (101) 147/70 (95) Pulse Ox 95 96 O2 Delivery Room Air Room Air Room Air Room Air 10/20/17 10/20/17 10/21/17 10/21/17 22:00 23:05 03:00 06:50 Temp 98.4 98.1 98.2 98.4 98.1 98.2 Pulse 83 73 77 Resp 16 18 18 B/P (MAP) 129/61 (83) 140/74 (96) 170/77 (108) Pulse Ox 95 94 97 O2 Delivery Room Air Room Air Room Air Room Air 10/21/17 10/21/17 10/21/17 10/21/17 07:29 09:00 09:01 10:38 Temp 98.6 98.6 Pulse 77 77 70 Resp 17 B/P (MAP) 170/77 170/77 136/76 (96) Pulse Ox 98 O2 Delivery Room Air Room Air Intake and Output 10/20/17 10/20/17 10/21/17 15:00 23:00 07:00 Intake Total 450 ml 350 ml Output Total 1300 ml 950 ml Balance -850 ml -600 ml Nutrition Consultation Dietary Evaluation: Recommendations by RD: Increase Calorie Intake, Protein supplementation Comments: continue boost plus, boost pudding, magic cup w/ meals Expected Outcomes/Goals: to meet > 75% est nutr needs Malnutrition Findings: Body Fat Depletion (Non Severe: Mod to Severe Weight Status: Underweight DONA MCNEAL K III DO Oct 21, 2017 11:28
--- NOTE | 2017-10-21 11:55 | PDOC ---
SUBJECTIVE ROS f/up hyponatremia feeling better OBJECTIVE Vital Signs Vital Signs Date Time Temp Pulse Resp B/P (MAP) Pulse Ox O2 Delivery O2 Flow Rate FiO2 10/21/17 10:38 98.6 70 17 136/76 (96) 98 Room Air 98.6 I & 0 Intake and Output 10/21/17 07:00 Intake Total 800 ml Output Total 2250 ml Balance -1450 ml Intake Oral 800 ml Output Urine Total 2250 ml PHYSICAL EXAM Physical Exam General Appearance: flat affect Awake: Alert Oriented x 2 Neck: No JVD or JVP Chest: CTA [place] Heart: S1 S2 Abdomen - Soft NTND Extremities - No Edema DIAGNOSIS/ASSESSMENT Assessment & Plan CHEIKH - resolved HypoNatremia - correction off of PPN Will be avail prn COMMENT/RELEVANT DATA Meds Current Medications Medications (Trade) Dose Ordered Sig/Kayla Start Time Stop Time Status Last Admin Dose Admin Acetaminophen (Tylenol) 500 mg BID 10/16/17 22:00 10/21/17 09:01 500 MG Acetaminophen/ Hydrocodone Bitart (Lortab 5/325) 1 tab Q6HRS PRN 10/16/17 21:30 10/20/17 21:08 1 TAB Amino Acids/ Glycerin/ Electrolytes 1,000 ml @ 80 mls/hr [id number] 10/17/17 11:45 10/20/17 12:51 DC 10/19/17 22:30 80 MLS/HR Amylase/Lipase/ Protease (Zenpep 10,000) 2 cap TIDWMEALS 10/18/17 12:00 10/21/17 09:00 2 CAP Bupropion HCl (Wellbutrin Sr) 100 mg DAILY 10/17/17 09:00 10/21/17 09:00 100 MG Calcium Carbonate/ Glycine (Tums) 500 mg PRN Q3HRS PRN 10/16/17 20:45 10/20/17 10:53 500 MG Calcium/Vitamin D (Oscal D 500mg/ 200uts) 1 tab BIDWMEALS 10/17/17 08:00 10/21/17 09:01 1 TAB Clopidogrel Bisulfate (Plavix) 75 mg DAILY 10/17/17 09:00 10/21/17 09:00 75 MG Cyclosporine (Restasis) 1 drop BID 10/17/17 09:00 10/20/17 21:07 1 DROP Dexamethasone (Decadron) 40 mg DAILY 10/19/17 09:00 10/23/17 07:00 10/21/17 08:59 40 MG Diltiazem HCl (Cardizem 24hr Cd) 240 mg DAILY 10/17/17 09:00 10/21/17 09:00 240 MG Dronabinol (Marinol) 2.5 mg BIDACLD 10/17/17 16:30 10/20/17 17:10 2.5 MG Enoxaparin Sodium (Lovenox 40mg Syringe) 40 mg Q24H 10/20/17 21:00 Enoxaparin Sodium (Lovenox Per Pharmacy Prophylaxis Dosing) 1 each PRN DAILY PRN 10/21/17 09:00 Folic Acid (Folic Acid) 1 mg TID 10/16/17 22:00 10/21/17 09:01 1 MG Gabapentin (Neurontin) 200 mg QHS 10/16/17 22:00 10/20/17 21:07 200 MG Heparin Sodium (Porcine) (Heparin Sq) 5,000 unit Q12HR 10/17/17 09:00 10/20/17 16:39 DC 10/20/17 11:18 5,000 UNIT Hydroxyzine HCl (Atarax) 10 mg PRN Q6HRS PRN 10/16/17 21:30 Info (Do NOT chart on this entry -- for MONITORING) 1 each PRN DAILY PRN 10/18/17 16:45 10/20/17 16:44 DC Iohexol (Omnipaque 240 Mg/ml) 50 ml 1X ONCE 10/18/17 16:45 10/18/17 16:46 DC 10/18/17 16:43 50 ML Iohexol (Omnipaque 300 Mg/ml) 60 ml 1X ONCE 10/18/17 16:45 10/18/17 16:46 DC 10/18/17 16:43 60 ML Latanoprost (Xalatan) 1 drop HS 10/16/17 22:00 10/20/17 13:07 1 DROP Magnesium Sulfate/ Dextrose 50 ml @ 25 mls/hr 1X ONCE 10/17/17 11:45 10/17/17 13:44 DC 10/17/17 12:05 25 MLS/HR Metoprolol Succinate (Toprol Xl) 25 mg DAILY 10/17/17 09:00 UNV Multivitamins (Thera M Plus) 1 tab DAILY 10/17/17 09:00 10/21/17 09:01 1 TAB Ondansetron HCl (Zofran Odt) 4 mg PRN Q6HRS PRN 10/16/17 21:30 Pantoprazole Sodium (Protonix) 40 mg BIDAC 10/17/17 16:30 10/21/17 09:00 40 MG Paroxetine HCl (Paxil) 20 mg DAILY 10/17/17 09:00 10/21/17 09:00 20 MG Prochlorperazine Edisylate (Compazine) 10 mg PRN Q6HRS PRN 10/16/17 20:45 Psyllium Hydrophilic Mucilloid (Metamucil Fiber Packet) 1 pkt DAILY 10/17/17 09:00 10/19/17 09:27 1 PKT Sodium Chloride 1,000 ml @ 100 mls/hr Q10H 10/16/17 20:36 10/17/17 06:35 DC 10/16/17 22:03 100 MLS/HR Tramadol HCl (Ultram) 50 mg Q4H PRN 10/16/17 21:30 Lab Laboratory Tests Test 10/21/17 02:40 10/21/17 03:40 Sodium Level 132 mmol/L (136-145) Potassium Level 4.6 mmol/L (3.5-5.1) Chloride Level 99 mmol/L (98-107) Carbon Dioxide Level 22 mmol/L (21-32) Anion Gap 11 (6-14) Blood Urea Nitrogen 50 mg/dL (7-20) Creatinine 1.0 mg/dL (0.6-1.0) Estimated GFR (Cockcroft-Gault) 54.2 Glucose Level 120 mg/dL (70-99) Calcium Level 8.3 mg/dL (8.5-10.1) White Blood Count 8.2 x10^3/uL (4.0-11.0) Red Blood Count 2.63 x10^6/uL (3.50-5.40) Hemoglobin 7.9 g/dL (12.0-15.5) Hematocrit 24.3 % (36.0-47.0) Mean Corpuscular Volume 92 fL (79-100) Mean Corpuscular Hemoglobin 30 pg (25-35) Mean Corpuscular Hemoglobin Concent 33 g/dL (31-37) Red Cell Distribution Width 14.7 % (11.5-14.5) Platelet Count 644 x10^3/uL (140-400) Neutrophils (%) (Auto) 93 % (31-73) Lymphocytes (%) (Auto) 5 % (24-48) Monocytes (%) (Auto) 2 % (0-9) Eosinophils (%) (Auto) 0 % (0-3) Basophils (%) (Auto) 0 % (0-3) Neutrophils # (Auto) 7.6 x10^3uL (1.8-7.7) Lymphocytes # (Auto) 0.4 x10^3/uL (1.0-4.8) Monocytes # (Auto) 0.2 x10^3/uL (0.0-1.1) Eosinophils # (Auto) 0.0 x10^3/uL (0.0-0.7) Basophils # (Auto) 0.0 x10^3/uL (0.0-0.2) NAZ TORRES MD Oct 21, 2017 11:55
[2017-10-21] MEDS: DRONABINOL 2.5 MG CAPSULE. PO SCH (12:35)
[2017-10-21] MEDS: cycloSPORINE 0.05% OPTH 1 DROP DROPERETTE OU SCH (12:36)
[2017-10-21 12:57] LABS: ANISOCYTOSIS SLIGHT; PLT ESTIMATE INCREASED (ADEQUATE); POIKILOCYTOSIS SLIGHT; POLYCHROMASIA SLIGHT; SCHISTOCYTES OCC
[2017-10-21 14:48] VITALS: BP 139/72
[2017-10-22 01:12] LABS: IGG1 224 mg/dL (248-810); IGG2 36 mg/dL (130-555); IGG3 14 mg/dL (15-102); IGG4 2 mg/dL (2-96); TOTAL IGG 327 mg/dL (700-1600)
== END 2017-10-21 16:32 | DRG 682 ==
LOC: 6 SOUTH 19:35
PROVIDERS: ADMIT Internal Medicine Hematology & Oncology; ATTEND Internal Medicine Hematology & Oncology
PROC: 30233N1 Transfusion of Nonautologous Red Blood Cells into Peripheral Vein, Percutaneous Approach (ICD-10-PCS; principal; 2017-10-17)
DX: N17.0 Acute kidney failure with tubular necrosis (principal); E43 Unspecified severe protein-calorie malnutrition; C91.10 Chronic lymphocytic leukemia of B-cell type not having achieved remission; K86.1 Other chronic pancreatitis; M06.9 Rheumatoid arthritis, unspecified; D64.9 Anemia, unspecified; E83.42 Hypomagnesemia; K86.89 Other specified diseases of pancreas; E87.1 Hypo-osmolality and hyponatremia; Z68.1 Body mass index [BMI] 19.9 or less, adult; L40.50 Arthropathic psoriasis, unspecified; E86.0 Dehydration; M35.00 Sjogren syndrome, unspecified; R62.7 Adult failure to thrive; F17.210 Nicotine dependence, cigarettes, uncomplicated; I10 Essential (primary) hypertension; M81.0 Age-related osteoporosis without current pathological fracture; K57.90 Diverticulosis of intestine, part unspecified, without perforation or abscess without bleeding; D47.3 Essential (hemorrhagic) thrombocythemia; Z82.49 Family history of ischemic heart disease and other diseases of the circulatory system; Z82.61 Family history of arthritis; Z88.2 Allergy status to sulfonamides; Z88.8 Allergy status to other drugs, medicaments and biological substances
CPT/HCPCS: 36415; 74177; 80048; 81001; 82274; 82380; 82533; 82607; 82728; 82746; 82787; 83010; 83540; 83550; 83615; 83735; 84100; 84134; 84443; 85007; 85025; 85045; 85384; 86301; 86850; 86900; 86901; 86920; J7030; J7060; J8540; P9016; Q0167; Q9966; Q9967; 97110; 97116; 97530; 97535

== ENCOUNTER → 2018-01-21 | Outpatient (CLI) | payer MEDICARE | END | disposition home or self-care (01) | LOC: PCVCIMAG 09:38 | DX: I65.23 Occlusion and stenosis of bilateral carotid arteries (principal); I73.9 Peripheral vascular disease, unspecified | CPT/HCPCS: 93880; 93923; 93978 ==

== ENCOUNTER → 2018-01-26 | Outpatient (CLI) | payer MEDICARE | END | disposition home or self-care (01) | LOC: PCVCCLINIC 15:11 | DX: I73.9 Peripheral vascular disease, unspecified (principal); I77.9 Disorder of arteries and arterioles, unspecified; M06.9 Rheumatoid arthritis, unspecified; C91.10 Chronic lymphocytic leukemia of B-cell type not having achieved remission; M35.00 Sjogren syndrome, unspecified; I70.0 Atherosclerosis of aorta; F17.200 Nicotine dependence, unspecified, uncomplicated; Z79.899 Other long term (current) drug therapy | CPT/HCPCS: G0463 ==

== ENCOUNTER → 2018-02-11 | Outpatient (CLI) | payer MEDICARE ==
[~2018-02-11] MED LIST changes: -ACET500T68 PO; -ARAVA20 MG PO; -BACL10TA PO; -BUPR100T6 PO; -CA C1TAB53 PO; -CEVI30CA PO; -CEVI30CA5 PO; -CHOL1CRY3 MC; -CYCL1DRO EACHEYE; -DILT120C93 PO; -ESTR0.3T PO; -FOLI0.4T2 PO; -HYDR1TAB12 PO; -HYDR200T PO; -MULT1CAP15 PO; -NIAC50TA3 PO; -PARO10TA57 PO; -PSYL0.5215 PO; +REGADENOSON 0.4 MG/5 ML DISP.SYRIN. IV; -RITU10VI IV; -TIZA4CAP3 PO
== END | disposition home or self-care (01) ==
LOC: PCVCIMAG 09:10
DX: I73.9 Peripheral vascular disease, unspecified (principal); E78.00 Pure hypercholesterolemia, unspecified; R07.9 Chest pain, unspecified; D64.9 Anemia, unspecified; I77.9 Disorder of arteries and arterioles, unspecified; M35.00 Sjogren syndrome, unspecified; M06.9 Rheumatoid arthritis, unspecified; C91.10 Chronic lymphocytic leukemia of B-cell type not having achieved remission; I10 Essential (primary) hypertension; F17.210 Nicotine dependence, cigarettes, uncomplicated; Z79.899 Other long term (current) drug therapy; Z79.82 Long term (current) use of aspirin
CPT/HCPCS: 78452; 80061; 93005; 93017; A9500; G0463; J2785

== ENCOUNTER → 2019-01-25 | Outpatient (CLI) | payer MEDICARE ==
[~2019-01-25] MED LIST changes: +ACET500T68 PO; +ARAVA20 MG PO; +BACL10TA PO; +BUPR100T6 PO; +BUPR100T8; +CA C1TAB53 PO; +CEVI30CA PO; +CEVI30CA5 PO; +CHOL1CRY3 MC; +CHOL500016 PO; +CLOP75TA; +CYCL1DRO EACHEYE; +DILT120C93 PO; +DILTIAZEM; +ESTR0.3T PO; +FOLI0.4T2 PO; +FOLI1TAB16 PO; +FURO20TA3 PO; +GABA100C6; +HYDR-2815; +HYDR1TAB13 PO; +HYDR200T5 PO; +HYDR200T71 PO; +HYDR25TA PO; +LATA2.5D3 OP; +LEFL20TA; +METO-239; +METO25TA2 PO; +MULT-629 PO; +MULT1CAP15 PO; +NIAC50TA3 PO; +ONDA8TAB14; +PARO10TA57 PO; +PARO40TA3; +PSYL0.5215 PO; +PSYL575P4 PO; -REGADENOSON 0.4 MG/5 ML DISP.SYRIN. IV; +RITU10VI IV; +SPIR1TAB3; +SPIR25TA5 PO; +TIZA2CAP PO; +TIZA4CAP PO; +TIZA4CAP3 PO; +TRAM50TA PO; +TRIA15OI TP
--- NOTE | 2019-01-25 12:50 | PCVCIMAG ---
EXAM: BILATERAL CAROTID DUPLEX INDICATION: Carotid Occlusive Disease. FINDINGS: Doppler Measurements (centimeters per second): RIGHT: Peak CCA-81, Peak ECA-60, Diastolic ICA-30, Peak ICA-71, ICA/CCA Ratio-0.9. LEFT: Peak CCA-69, Peak ECA-47, Diastolic ICA-27, Peak ICA-76, ICA/CCA Ratio-1.1. RIGHT CAROTID: The carotid bulb has mild plaque. The proximal internal carotid artery shows <40% stenosis. The common carotid artery shows no significant stenosis. The external carotid artery shows no significant stenosis. LEFT CAROTID: The carotid bulb has mild plaque. The proximal internal carotid artery shows <40% stenosis. The common carotid artery shows no significant stenosis. The external carotid artery shows no significant stenosis. Antegrade flow in both vertebral arteries. IMPRESSION: <40% stenosis of the right internal carotid artery with mild plaque. <40% stenosis of the left internal carotid artery with mild plaque. LOC:[place] [id number]
--- NOTE | 2019-01-25 14:32 | PCVCIMAG ---
EXAM: NONINVASIVE ARTERIAL EXAMINATION OF BOTH LOWER EXTREMITIES INCLUDING PRE AND POST EXERCISE PRESSURE MEASUREMENTS AND DOPPLER WAVEFORMS INDICATION: Peripheral Arterial Disease. Leg pain. FINDINGS: Right Brachial: 128 mm Hg. Right Dorsalis Pedis: 149 mm Hg. Right Posterior Tibial: 164 mm Hg. Right CARLIN = 1.28. Left Brachial: 121 mm Hg. Left Dorsalis Pedis: 150 mm Hg. Left Posterior Tibial: 158 mm Hg. Left CARLIN = 1.23. Post Exercise: Right Brachial 127 mm Hg. Right Posterior Tibial: 145 mm Hg. Left Posterior Tibial: 155 mm Hg. Right CARLIN = 1.14. Left CARLIN = 1.22. IMPRESSION: No resting ischemia in the right lower extremity. No exercise induced ischemia in the right lower extremity. No resting ischemia in the left lower extremity. No exercise induced ischemia in the left lower extremity. LOC:[id number]
--- NOTE | 2019-01-25 14:33 | PCVCIMAG ---
EXAM: AORTOILIAC DUPLEX INDICATION: Peripheral arterial disease FINDINGS: AORTA: Suprarenal aorta measures maximum diameter of 2.0 cm. There is not a fusiform infrarenal aortic aneurysm. The infrarenal aorta measures maximum diameter of 1.9 cm. No aortic stenosis. RIGHT COMMON ILIAC ARTERY: Maximum diameter is 0.6 cm. No significant stenosis. RIGHT EXTERNAL ILIAC ARTERY: No significant stenosis. LEFT COMMON ILIAC ARTERY: Maximum diameter is 1.0 cm. No significant stenosis. LEFT EXTERNAL ILIAC ARTERY: No significant stenosis. IMPRESSION: No abdominal aortic aneurysm. No aortoiliac stenosis seen. Previous left iliac stent maintaining satisfactory patency. LOC:[id number]
== END | disposition home or self-care (01) ==
LOC: PCVCIMAG 10:02
PROVIDERS: ATTEND Internal Medicine Cardiovascular Disease
DX: I65.23 Occlusion and stenosis of bilateral carotid arteries (principal); I73.9 Peripheral vascular disease, unspecified; I70.0 Atherosclerosis of aorta
CPT/HCPCS: 93880; 93924; 93978

== ENCOUNTER → 2019-02-01 | Outpatient (CLI) | payer MEDICARE ==
--- NOTE | 2019-02-01 17:59 | PCVCIMAG ---
APPROVED REPORT Study performed: 02/01/2019 15:49:48 EXAM: Comprehensive 2D, Doppler, and color-flow Echocardiogram Patient Location: Echo lab Room #: 2Status: routine BSA: 1.57 HR: 85 bpmBP: 112/70 mmHg Rhythm: PVC's Other Information Study Quality: Adequate Risk Factors: Cardiac Risk Factors: HTN, Hyperlipidemia, Smoking Indications Arrhythmia Sjogren's Rheumatoid Arthritis 2D Dimensions IVSd: 8.82 (7-11mm)LVOT Diam: 19.00 (18-24mm) LVDd: 40.77 mm PWd: 9.23 (7-11mm) LVDs: 29.58 (25-40mm) Left Atrium: 35.56 (27-40mm) Aortic Root: 24.11 mm LV Single Plane 4CH: 51.59 % LV Single Plane 2CH: 50.91 % Biplane EF: 50.7 % Volumes Left Atrial Volume (Systole) Single Plane 4CH: 39.73 mLSingle Plane 2CH: 52.31 mL LA ESV Index: 31.00 mL/m2 Aortic Valve AoV Peak Jesus.: 1.28 m/s AO Peak Gr.: 6.57 mmHgLVOT Max P.51 mmHg LVOT Max V: 0.93 m/s FLORIDALMA Vmax: 2.13 cm2 Pulmonary Valve PV Peak Jesus.: 1.05 m/sPV Peak Gr.: 4.37 mmHg Pulmonary Vein P Vein S: 0.48 m/sP Vein A: 0.27 m/s P Vein D: 0.28 m/sP Vein A Dur.: 86.5 msec P Vein S/D Ratio: 1.71 Tricuspid Valve TR Peak Jesus.: 2.51 m/sRAP Estimate: 7.00 mmHg TR Peak Gr.: 25.16 mmHg PA Pressure: 32.00 mmHg Left Ventricle The left ventricle is normal size. There is normal LV segmental wall motion. There is normal left ventricular wall thickness. Left ventricular systolic function is normal. The left ventricular ejection fraction is within the normal range. LVEF is 50-55%. This study is not technically sufficient to allow evaluation of the LV diastolic function due to arrhythmia. Right Ventricle The right ventricle is normal size. The right ventricular systolic function is normal. Atria The left atrium size is normal. The right atrium size is normal. Aortic Valve The aortic valve is normal in structure. No aortic regurgitation is present. There is no aortic valvular stenosis. Mitral Valve The mitral valve is normal in structure. Trace mitral regurgitation. No evidence of mitral valve stenosis. Tricuspid Valve The tricuspid valve is normal in structure. Mild tricuspid regurgitation. The pulmonary artery pressure is 32 mmHg. Pulmonic Valve The pulmonary valve is normal in structure. There is no pulmonic valvular regurgitation. Great Vessels The aortic root is normal in size. IVC is normal in size and collapses >50% with inspiration. Pericardium There is no pericardial effusion. <Conclusion> The left ventricle is normal size. This study is not technically sufficient to allow evaluation of the LV diastolic function due to arrhythmia. The right ventricle is normal size. The left atrium size is normal. The aortic valve is normal in structure. No aortic regurgitation is present. Trace mitral regurgitation. Mild tricuspid regurgitation. The pulmonary artery pressure is 32 mmHg. The aortic root is normal in size. There is no pericardial effusion.
== END | disposition home or self-care (01) ==
LOC: PCVCCLINIC 15:12
PROVIDERS: ATTEND Internal Medicine Cardiovascular Disease
DX: I07.1 Rheumatic tricuspid insufficiency (principal); I49.9 Cardiac arrhythmia, unspecified; M35.00 Sjogren syndrome, unspecified; M06.9 Rheumatoid arthritis, unspecified; E78.00 Pure hypercholesterolemia, unspecified; C91.90 Lymphoid leukemia, unspecified not having achieved remission; I73.9 Peripheral vascular disease, unspecified; I65.23 Occlusion and stenosis of bilateral carotid arteries; I10 Essential (primary) hypertension; F17.210 Nicotine dependence, cigarettes, uncomplicated; Z79.82 Long term (current) use of aspirin; Z79.899 Other long term (current) drug therapy
CPT/HCPCS: 36415; 80061; 93005; 93306; G0463

== ENCOUNTER → 2019-08-23 | Outpatient (CLI) | payer MEDICARE ==
[~2019-08-23] MED LIST changes: -LEFL20TA; +LEFL20TA6
--- NOTE | 2019-08-23 14:54 | PCVCIMAG ---
EXAM: AORTOILIAC DUPLEX INDICATION: Peripheral arterial disease FINDINGS: AORTA: Suprarenal aorta measures maximum diameter of 2.3 cm. There is not a fusiform infrarenal aortic aneurysm. The infrarenal aorta measures maximum diameter of 1.9 cm. No aortic stenosis. RIGHT COMMON ILIAC ARTERY: Maximum diameter is 1.1 cm. No significant stenosis. RIGHT EXTERNAL ILIAC ARTERY: No significant stenosis. LEFT COMMON ILIAC ARTERY: Maximum diameter is 1.2 cm. No significant stenosis. LEFT EXTERNAL ILIAC ARTERY: No significant stenosis. IMPRESSION: No abdominal aortic aneurysm. No aortoiliac stenosis seen. Previous left iliac stent maintaining satisfactory patency. LOC:[id number]
== END | disposition home or self-care (01) ==
LOC: PCVCIMAG 14:11
PROVIDERS: ATTEND Internal Medicine Cardiovascular Disease
DX: I73.9 Peripheral vascular disease, unspecified (principal); I10 Essential (primary) hypertension; E78.00 Pure hypercholesterolemia, unspecified; E78.5 Hyperlipidemia, unspecified; M06.9 Rheumatoid arthritis, unspecified; M35.00 Sjogren syndrome, unspecified; Z79.82 Long term (current) use of aspirin; Z79.899 Other long term (current) drug therapy; F17.210 Nicotine dependence, cigarettes, uncomplicated; Z88.2 Allergy status to sulfonamides; Z88.1 Allergy status to other antibiotic agents; Z88.8 Allergy status to other drugs, medicaments and biological substances; Z85.6 Personal history of leukemia; Z95.828 Presence of other vascular implants and grafts
CPT/HCPCS: 36415; 80061; 93005; 93978; G0463